=== PATIENT | female | born 1965 | race Caucasian/White ===

== ENCOUNTER 2017-06-11 20:52 | Outpatient (CLI) | payer BC ==
[~2017-06-11 20:52] MED LIST: ASPI-266 PO; CTLP20T PO; HYDR1CAP2 PO; MODA200T PO; MODA200T39 PO; NAPR-243 PO; SIMV20TA3 PO; SIMV40TA4 PO; SMV10T PO
== END 2017-06-12 06:05 | disposition home or self-care (01) ==
LOC: SLEEP 20:52
PROVIDERS: ATTEND Otolaryngology Otolaryngology/Facial Plastic Surgery
DX: G47.33 Obstructive sleep apnea (adult) (pediatric) (principal)
CPT/HCPCS: 95810

== ENCOUNTER → 2017-09-16 | Outpatient (CLI) | payer BC ==
--- NOTE | 2017-09-16 17:26 | Diagnostic Imaging Report ---
PROCEDURE: MRI lumbar spine. TECHNIQUE: Multiplanar, multisequence MRI of the lumbar spine was performed without contrast. INDICATION: Right thigh numbness and knee pain. COMPARISON: Comparison is made with the prior study from June 11, 2016. FINDINGS: Alignment of the lumbar spine is normal. The vertebral body heights are well maintained. There is no focal marrow signal abnormality to suggest an acute osseous injury or underlying osseous lesion. There is a small degree of edema associated with facet arthropathy at L4-L5. The lower thoracic canal demonstrates no evidence of canal stenosis. The distal thoracic cord demonstrates no signal abnormality. The conus terminates at a normal level. L1-L2 unremarkable. At L2-L3, there is disc degeneration and a very slight disc bulging. There is no significant stenosis. At L3-L4, there is low signal intensity within the disc suggesting some disc desiccation and degeneration. There is no significant disc bulging. There is mild facet hypertrophy. There is no significant stenosis. At L4-L5 disc degeneration and disc bulging and a small central disc protrusion are present. There is more advanced facet arthropathy and ligamentous thickening at this level with mild narrowing of the central canal and [id number]-eh-ymoepycb narrowing of the lateral recesses. There is mild narrowing of the right neural foramen. At L5-S1, there is no significant canal or lateral recess stenosis. There is no significant foraminal stenosis. Paraspinal soft tissues unremarkable. Aorta is normal in caliber. There is a right renal cyst. The kidneys are nonobstructed. IMPRESSION: 1. Normal height and alignment of lumbar spine without evidence of an acute osseous abnormality. 2. Mild degenerative features as described most significant at the L4-L5 level where disc bulging and central disc protrusion as well as advanced facet arthropathy contribute to fzyg-da-gydccfny narrowing of both the lateral recesses. Dictated by: Dictated on workstation # [id number]
== END ==
LOC: RAD 15:49
PROVIDERS: ATTEND Nurse Practitioner Family
DX: M51.26 Other intervertebral disc displacement, lumbar region (principal); M46.86 Other specified inflammatory spondylopathies, lumbar region; M48.061 Spinal stenosis, lumbar region without neurogenic claudication; R20.0 Anesthesia of skin
CPT/HCPCS: 72148

== ENCOUNTER → 2017-09-30 | Outpatient (CLI) | payer BC ==
--- NOTE | 2017-09-30 16:57 | Diagnostic Imaging Report ---
PROCEDURE: MR imaging cervical spine without contrast. TECHNIQUE: Multiplanar, multisequence MR imaging of the cervical spine was performed without contrast. INDICATION: Bilateral knee and leg pain. There are no previous MRI cervical spine examinations available for comparison. FINDINGS: The MRI lumbar spine exam performed on 09/16/17 noted mild degenerative disc disease at L4-L5 resulting in mild to moderate narrowing of the lateral recesses bilaterally. There was no abnormality of the cord or the vertebral bodies on the prior exam. On this study, however, the T2 parasagittal images do show that there is an area of increased signal within the cord extending from the inferior endplate of C7 to the inferior endplate of T1. This area measures 5 x 4 x 16 mm in maximum AP, transverse and longitudinal dimensions. This area of altered signal is of uncertain etiology. This could be secondary to demyelinating disease. Myelomalacia from prior trauma could also present in this manner. The possibility that this is neoplastic in nature would be less likely as the cord does not seem to be expanded but that should still be considered. I would recommend that a followup MRI cervical spine exam with intravenous contrast be performed for further study. In addition, it may prove worthwhile to obtain an MRI of the brain with and without contrast, particularly if there is clinical concern regarding demyelinating disease. There is also degenerative disc and bony disease involving the cervical spine. Specifically, there is narrowing of the disc space at the C5-C6 level and there is a broad-based disc bulge centrally at this level. The disc compresses the ventral aspect of the thecal sac and narrows the AP diameter to 7 mm. There is also narrowing of the neuroforamen bilaterally at this level. In addition, there is also degenerative disc, ligamentous and bony disease at the C6-C7 level. The AP diameter of the thecal sac is narrowed to 7.5 mm. There is mild narrowing of the neuroforamen bilaterally at this level. There is also a disc bulge centrally at the C3-C4 level. The disc narrows the AP diameter to 8.9 mm. There is mild narrowing of the neuroforamen bilaterally at this level as well. The remainder of the cervical spine is unremarkable for spinal stenosis or nerve root encroachment. There is no abnormal signal arising from the vertebral bodies to indicate an acute abnormality. There is no sign of a paraspinal mass either. IMPRESSION: 1. There is a sizable area of altered signal within the cord at the C7-T1 level. This finding is of uncertain etiology. Considerations and recommendations as above. 2. There is spinal stenosis at C5-C6, C6-C7 and C3-C4 with the C5-C6 level being the most severely affected. There is also neuroforaminal narrowing at C5-C6. Dictated by: Dictated on workstation # [id number]
--- NOTE | 2017-09-30 18:14 | Diagnostic Imaging Report ---
EXAMINATION: MRI of the thoracic spine without contrast. INDICATION: Right side numbness and tingling. No known injury. COMPARISON: No comparison of the thoracic spine is available. FINDINGS: Thoracic spine alignment is normal. The vertebral body heights appear well maintained. There is no focal marrow signal abnormality demonstrated to suggest an acute osseous injury or underlying osseous lesion. There is abnormal high T2 signal intensity demonstrated within the spinal cord at the T1 level. This measures 1.8 cm in craniocaudal length. Transverse dimension is 5 mm. There is no cord expansion or cord edema. There is no other abnormal thoracic cord signal demonstrated. There are some mild degenerative endplate changes within the thoracic spine and lower facet hypertrophy but there is no evidence of focal disc herniation or high-grade thoracic canal or neural foraminal stenosis. Paraspinal soft tissues are unremarkable. There is a right renal cyst. IMPRESSION: 1. Abnormal high T2 signal intensity within the spinal cord at the level of T1. There is no cord expansion or cord edema. Primary considerations would be that of a demyelinating process or a transverse myelitis. Neoplastic process is not fully excluded at this time. Given reported six months if symptomatology with normal cord volume this is unlikely to be reflective of a region of cord infarct. Recommendation is for a dedicated assessment of the contrast-enhanced MRI with and without contrast. This would likely be best performed with a cervical spine MRI to include the cervical thoracic junction. 2. Thoracic spine alignment is normal without acute osseous abnormality. 3. No evidence of thoracic canal or neural foraminal stenosis. Dictated by: Dictated on workstation # [id number]
== END ==
LOC: RAD 15:14
PROVIDERS: ATTEND Orthopaedic Surgery
DX: M48.02 Spinal stenosis, cervical region (principal)
CPT/HCPCS: 72141; 72146

== ENCOUNTER → 2017-10-11 | Outpatient (CLI) | payer BC ==
[~2017-10-11] MED LIST changes: +GADOBUTROL 15 MMOL/15 ML (GADAVIST) VIAL IV ONE
[2017-10-11 08:31] LABS: BUN/CREATININE RATIO 13; CREATININE SERUM 0.69 MG/DL (0.60-1.30); GFR ESTIMATED > 60
== END ==
LOC: RAD 08:03
PROVIDERS: ATTEND Orthopaedic Surgery
DX: Z01.810 Encounter for preprocedural cardiovascular examination (principal); S14.159A Other incomplete lesion at unspecified level of cervical spinal cord, initial encounter; S24.119A Complete lesion at unspecified level of thoracic spinal cord, initial encounter
CPT/HCPCS: 36415; 82565; 84520

== ENCOUNTER → 2017-10-13 | Outpatient (CLI) | payer BC | LOC: RAD 14:54 | PROVIDERS: ATTEND Orthopaedic Surgery | DX: M48.02 Spinal stenosis, cervical region (principal); M47.814 Spondylosis without myelopathy or radiculopathy, thoracic region ==

== ENCOUNTER 2017-12-04 16:20 | Emergency (ER) | payer BC ==
[~2017-12-04] VITALS: Ht 165.1 cm; Wt 97.1 kg
[~2017-12-04 16:20] MED LIST changes: -GADOBUTROL 15 MMOL/15 ML (GADAVIST) VIAL IV ONE
--- OUTSIDE RECORDS SUMMARY | 2017-12-04 16:37 | XMS REPORT ---
Author Author STACEY FREEMAN [facility] [employer] Address Unknown Phone Unavailable Care Team Providers Care Holter Technician Name Role Phone STACEY FREEMAN Unavailable Allergies No Known Allergies Problems Problem Type Condition Code Onset Dates Condition Status Assessment Encounter for immunization Z23 Active Problem Dysfunction of Eustachian tube 381.81 Active Medications No Known Medications Procedures Procedure Coding System Code Date SINGLE IMMUNIZATION ADMIN CPT-4 50362 Jul 18, 2015 TDAP (BOOSTRIX) CPT-4 95670 Jul 18, 2015 Results No Known Results Immunizations Vaccine Administration Date TDAP (BOOSTRIX) Jul 18, 2015 Summary Purpose [employer] Submission
--- OUTSIDE RECORDS SUMMARY | 2017-12-04 16:37 | XMS REPORT | Continuity of Care Document ---
Author Author [facility] Address Unknown Phone Unavailable Allergies Active Description Code Type Severity Reaction Onset Reported/Identified Relationship to Patient Clinical Status Yes SEASONAL, ENVIRONMENTAL SEASONAL, ENVIRONMENTAL Mild N/A 07/31/2010 Medications There is no data. Problems Date Dx Coded Attending Type Code Diagnosis Diagnosed By 07/11/2013 ROCHELLE WHITTAKER Ot 327.23 OBSTRUCTIVE SLEEP APNEA (ADULT) (PEDIATR 10/29/2013 FREDIS GAUTHIER, DENNIS Cervantes Ot 786.50 CHEST PAIN NOS 06/28/2014 STACEY FREEMAN APRN 381.81 EUSTACHIAN TUBE DYSFUNCTION 11/09/2014 NESSA MULLER MD Ot 272.4 11/09/2014 NESSA MULLER MD Ot 278.00 11/09/2014 NESSA MULLER MD Ot 401.9 11/09/2014 NESSA MULLER MD Ot 786.50 11/09/2014 NESSA MULLER MD Ot V17.3 07/17/2015 NESSA MULLER MD Ot 070.70 07/17/2015 NESSA MULLER MD Ot 397.0 07/17/2015 NESSA MULLER MD Ot 401.9 07/17/2015 NESSA MULLER MD Ot 424.0 07/17/2015 NESSA MULLER MD Ot 786.50 07/17/2015 NESSA MULLER MD Ot V17.3 02/02/2016 NESSA MULLER MD Ot 272.4 HYPERLIPIDEMIA NEC/NOS 02/02/2016 NESSA MULLER MD Ot 278.00 OBESITY, NOS 02/02/2016 NESSA MULLER MD Ot 401.9 HYPERTENSION NOS 02/02/2016 NESSA MULLER MD Ot 786.50 CHEST PAIN NOS 02/02/2016 NESSA MULLER MD Ot V17.3 FAM HX-ISCHEM HEART DIS 02/02/2016 NESSA MULLER MD Ot 070.70 UNSPECIFIED VIRAL HEPATITIS C WITHOUT HE 02/02/2016 NESSA MULLER MD Ot 397.0 TRICUSPID VALVE DISEASE 02/02/2016 NESSA MULLER MD Ot 401.9 HYPERTENSION NOS 02/02/2016 NESSA MULLER MD Ot 424.0 MITRAL VALVE DISORDER 02/02/2016 NESSA MULLER MD Ot 786.50 CHEST PAIN NOS 02/02/2016 NESSA MULLER MD Ot V17.3 FAM HX-ISCHEM HEART DIS 02/03/2016 NESSA MULLER MD Ot B19.20 UNSPECIFIED VIRAL HEPATITIS C WITHOUT HE 02/03/2016 NESSA MULLER MD Ot E78.5 HYPERLIPIDEMIA, UNSPECIFIED 02/03/2016 NESSA MULLER MD Ot F17.210 NICOTINE DEPENDENCE, CIGARETTES, UNCOMPL 02/03/2016 NESSA MULLER MD Ot F32.9 MAJOR DEPRESSIVE DISORDER, SINGLE EPISOD 02/03/2016 NESSA MULLER MD Ot F41.9 ANXIETY DISORDER, UNSPECIFIED 02/03/2016 NESSA MULLER MD Ot I10 ESSENTIAL (PRIMARY) HYPERTENSION 02/03/2016 NESSA MULLER MD Ot M79.7 FIBROMYALGIA 02/03/2016 NESSA MULLER MD Ot R07.89 OTHER CHEST PAIN 02/03/2016 NESSA MULLER MD Ot Z91.14 PATIENT'S OTHER NONCOMPLIANCE WITH MEDIC 06/12/2016 MARTINEZ SAUCEDO MD Ot M51.36 OTHER INTERVERTEBRAL DISC DEGENERATION, 06/17/2016 MARTINEZ SAUCEDO MD Ot M51.36 OTHER INTERVERTEBRAL DISC DEGENERATION, 06/24/2016 MARTINEZ SAUCEDO MD Ot M51.36 OTHER INTERVERTEBRAL DISC DEGENERATION, 06/10/2017 MARTINEZ SAUCEDO MD Ot M51.36 OTHER INTERVERTEBRAL DISC DEGENERATION, 06/11/2017 MARTINEZ SAUCEDO MD Ot M51.36 OTHER INTERVERTEBRAL DISC DEGENERATION, 06/12/2017 MARTINEZ JERNIGAN MD Ot G47.33 OBSTRUCTIVE SLEEP APNEA (ADULT) (PEDIATR 09/15/2017 MARTINEZ SAUCEDO MD Ot M51.36 OTHER INTERVERTEBRAL DISC DEGENERATION, 09/30/[address] G[address] Ot M46.86 OTHER SPECIFIED INFLAMMATORY SPONDYLOPAT 09/30/[address] GIL[address] Ot M48.061 SPINAL STENOSIS, LUMBAR REGION WITHOUT N 09/30/2017 M[place]ULK[place]LOCHOA [place] [facility] Ot M51.26 OTHER INTERVERTEBRAL DISC DISPLACEMENT, 09/30/[address] [facility] Ot R20.0 ANESTHESIA OF SKIN 10/01/2017 PAULA ENGLISH MD, Ot M48.02 SPINAL STENOSIS, CERVICAL REGION 10/12/2017 RENU WATERS DO Ot S14.159A OTH INCMPL LESION AT UNSP LEVEL OF CERV 10/12/2017 RENU WATERS DO Ot S24.119A COMPLETE LESION AT UNSP LEVEL OF THORACI 10/12/2017 RENU WATERS DO Ot Z01.810 ENCOUNTER FOR PREPROCEDURAL CARDIOVASCUL 10/12/2017 RENU WATERS DO, Ot S14.159A OTH INCMPL LESION AT UNSP LEVEL OF CERV 10/12/2017 RENU WATERS DO Ot S24.119A COMPLETE LESION AT UNSP LEVEL OF THORACI 10/12/2017 RENU WATERS DO Ot Z01.810 ENCOUNTER FOR PREPROCEDURAL CARDIOVASCUL 10/13/2017 PAULA ENGLISH MD, Ot M48.02 SPINAL STENOSIS, CERVICAL REGION 10/14/2017 RENU WATERS DO Ot M47.814 SPONDYLOSIS W/O MYELOPATHY OR RADICULOPA 10/14/2017 RENU WATRES DO Ot M48.02 SPINAL STENOSIS, CERVICAL REGION 10/21/2017 RENU WATERS DO Ot S14.159A OTH INCMPL LESION AT UNSP LEVEL OF CERV 10/21/2017 RENU WATERS DO Ot S24.119A COMPLETE LESION AT UNSP LEVEL OF THORACI 10/21/2017 RENU WATERS DO Ot Z01.810 ENCOUNTER FOR PREPROCEDURAL CARDIOVASCUL Procedures There is no data. Results Test Result Range [id number] - 10/11/17 08:12 Serum or plasma urea nitrogen measurement (mass/volume) 9 mg/dL 7-18 Serum or plasma creatinine measurement (mass/volume) 0.69 mg/dL 0.60-1.30 Serum or plasma urea nitrogen/creatinine mass ratio 13 NRG Serum or plasma creatinine measurement with calculation of estimated glomerular filtration rate > NRG Encounters ACCT No. Visit Date/Time Discharge Status Pt. Type Provider Facility Loc./Unit Complaint [id number] 06/28/2014 09:22:00 06/28/2014 23:59:59 CLS Outpatient STACEY FREEMAN APRN [id number] 10/13/2017 14:54:00 10/13/2017 23:59:59 CLS Outpatient RENU WATERS DO [facility] RAD S14.15,S24.119A [id number] 10/11/2017 08:03:00 10/11/2017 23:59:59 CLS Outpatient RENU WATERS DO [facility] RAD S14.15,S24.119A [id number] 10/05/2017 15:06:00 10/05/2017 23:59:59 CLS Preadmit RENU WATERS DO [facility] RAD S14.15,S24.119A [id number] 09/30/2017 15:14:00 09/30/2017 23:59:59 CLS Outpatient PAULA ENGLISH MD [facility] RAD MYELOPATHY [id number] 09/16/2017 15:49:00 09/16/2017 23:59:[address] [facility] RAD PARISH LEG PAIN [id number] 06/11/2017 20:52:00 06/12/2017 06:05:00 DIS Outpatient MARTINEZ JERNIGAN MD [facility] SLEEP ONELIA G47.33 [id number] 06/11/2016 16:17:00 06/11/2016 23:59:59 CLS Outpatient MARTINEZ SAUCEDO MD [facility] RAD LUMBAR SPINAL STENOSIS [id number] 02/02/2016 21:27:00 02/03/2016 09:50:00 DIS Inpatient NESSA MULLER MD [facility] [id number] 11/13/2013 13:52:00 11/13/2013 23:59:59 CLS Outpatient NESSA MULLER MD [facility] CARD [id number] 11/01/2013 06:34:00 11/01/2013 23:59:59 CLS Outpatient NESSA MULLER MD [facility] RAD [id number] 10/29/2013 15:19:00 10/29/2013 17:16:00 DIS Emergency FREDIS GAUTHIER, DENNIS Cervantes [facility] ER [id number] 07/10/2013 20:53:00 07/11/2013 16:55:00 DIS Outpatient ROCHELLE WHITTAKER [facility] SLEEP
--- OUTSIDE RECORDS SUMMARY | 2017-12-04 16:37 | XMS REPORT | Clinical Summary ---
Author Author [facility] Organization [facility] Address Unknown Phone Unavailable Care Team Providers Care Commercial Singer Name Role Phone Joseline Donaldson GEODETIC ADVISOR Unavailable Source Comments Some departments are not documenting in the electronic medical record. If you do not see the information that you expected, contact Release of Information in the Health Information Management department at [phone] for further assistance in locating additional records.[facility] Allergies Not on File Current Medications Not on file Active Problems Not on file Social History Tobacco Use Types Packs/Day Years Used Date Never Assessed Sex Assigned at Date Recorded Not on file Last Filed Vital Signs Not on file Plan of Treatment Health Maintenance Due Date Last Done Comments PHYSICAL (COMPREHENSIVE) 1973 EXAM PERTUSSIS VACCINE 1977 HIV SCREENING 1981 TETANUS VACCINE 12/11/1983 CERVICAL CANCER SCREENING 1996 BREAST CANCER SCREENING 2006 COLORECTAL CANCER 2016 SCREENING INFLUENZA VACCINE 06/20/2018 Results Not on filefrom Last 3 Months
--- OUTSIDE RECORDS SUMMARY | 2017-12-04 16:37 | XMS REPORT ---
Author Author STACEY FREEMAN Organization [facility] Address [address] [place] [address] Care Team Providers Care Telephone Betting Clerk Name Role Phone DORISMISTYSTACEY Unavailable PROBLEMS Type Condition ICD9-CM Code [id number] Code Onset Dates Condition Status SNOMED Code Problem Dysfunction of Eustachian tube 381.81 Active 45247882 ALLERGIES No Known Allergies SOCIAL HISTORY Never Assessed PLAN OF CARE Activity Details Follow Up prn Reason: VITAL SIGNS Height 65 in 2017-01-21 Weight 210 lbs 2017-01-21 Temperature 98 degrees Fahrenheit 2017-01-21 Heart Rate 84 bpm 2017-01-21 Respiratory Rate 20 2017-01-21 Oximetry 97 % 2017-01-21 BMI 34.94 kg/m2 2017-01-21 Blood pressure systolic 130 mmHg 2017-01-21 Blood pressure diastolic 90 mmHg 2017-01-21 MEDICATIONS Medication Instructions Dosage Frequency Start Date End Date Duration Status Promethazine-Codeine 6.25-10 MG/5ML Orally every 6 hrs 5-10 ml as needed for cough 6h 7 days Active Celexa Active Doxycycline Hyclate 100 mg Orally every 12 hrs 1 capsule 12h January, January, 10 days Active Provigil Active Mobic Active Norvasc Active Symbicort 160-4.5 MCG/ACT Inhalation Twice a day 2 puffs 12h January, Apr, 30 days Active RESULTS No Results PROCEDURES Procedure Date Ordered Result Body Site MEASURE BLOOD OXYGEN LEVEL January 21, 2017 IMMUNIZATIONS No Known Immunizations MEDICAL (GENERAL) HISTORY Type Description Date Medical History Narcolepsy
--- OUTSIDE RECORDS SUMMARY | 2017-12-04 16:37 | XMS REPORT ---
Author Author STACEY FREEMAN Organization [employer] Address Unknown Phone Unavailable Care Team Providers Care Sandstone Splitter Name Role Phone STACEY FREEMAN Unavailable Allergies No Known Allergies Problems Problem Type Condition Code Onset Dates Condition Status Assessment Encounter for immunization Z23 Active Problem Dysfunction of Eustachian tube 381.81 Active Medications No Known Medications Procedures Procedure Coding System Code Date SINGLE IMMUNIZATION ADMIN CPT-4 21649 Jul 08, 2015 FLUARIX QUAD (3 & UP)-GSK-2014 CPT-4 43535 Jul 08, 2015 Results No Known Results Immunizations Vaccine Administration Date FLUARIX QUAD (3 & UP)-GSK-2014Jul 08, 2015 Summary Purpose [employer] Submission
[2017-12-04] MEDS ORDERED: DIAZ10TA3 PO (16:50)
[2017-12-04] MEDS ORDERED: AMLO5TAB2 PO (16:50)
[2017-12-04] MEDS ORDERED: OXYC-471 PO (16:50)
[2017-12-04] MEDS ORDERED: RT-ALBUINH IH (16:50)
[2017-12-04] MEDS ORDERED: BACL10TA PO (16:50)
[2017-12-04 18:46] LABS: BASOPHILS % (AUTO) 0 % (0-10); EOSINOPHILS # (AUTO) 0.2 10^3/uL (0.0-0.3); EOSINOPHILS % (AUTO) 2 % (0-10); HEMATOCRIT 37 % (35-52); HEMOGLOBIN 12.9 G/DL (11.5-16.0); LYMPHOCYTES # (AUTO) 1.8 X 10^3 (1.0-4.0); LYMPHOCYTES % (AUTO) 16 % (12-44); MEAN CORPUSCULAR HEMOGLOBIN 31 PG (25-34); MEAN CORPUSCULAR HGB CONC 35 G/DL (32-36); MEAN CORPUSCULAR VOLUME 89 FL (80-99); MEAN PLATELET VOLUME 8.8 FL (7.4-10.4); MONOCYTES # (AUTO) 1.4 X 10^3 (0.0-1.0); MONOCYTES % (AUTO) 13 % (0-12); NEUTROPHILS # (AUTO) 7.4 X 10^3 (1.8-7.8); NEUTROPHILS % (AUTO) 68 % (42-75); PLATELET COUNT 253 10^3/uL (130-400); RED BLOOD COUNT 4.15 10^6/uL (4.35-5.85); RED CELL DISTRIBUTION WIDTH 13.3 % (10.0-14.5); WHITE BLOOD COUNT 10.8 10^3/uL (4.3-11.0)
[2017-12-04 18:55] LABS: PROTHROMBIN TIME PATIENT 13.2 SEC (12.2-14.7)
[2017-12-04 19:05] LABS: ALANINE AMINOTRANSFERASE 32 U/L (0-55); ALBUMIN 3.5 GM/DL (3.2-4.5); ALKALINE PHOSPHATASE 60 U/L (40-136); BILIRUBIN,TOTAL 0.4 MG/DL (0.1-1.0); BUN/CREATININE RATIO 13; CALCIUM 8.7 MG/DL (8.5-10.1); CARBON DIOXIDE 23 MMOL/L (21-32); CHLORIDE 106 MMOL/L (98-107); CREATININE SERUM 0.63 MG/DL (0.60-1.30); GFR ESTIMATED > 60; GLUCOSE 101 MG/DL (70-105); MAGNESIUM 1.9 MG/DL (1.8-2.4); POTASSIUM 4.4 MMOL/L (3.6-5.0); SODIUM 137 MMOL/L (135-145)
[2017-12-04 19:25] LABS: TSH (THYROID ANALYZER) 0.38 UIU/ML (0.35-4.94)
--- NOTE | 2017-12-04 19:28 | ED Lower Extremity ---
General Chief Complaint: Lower Extremity Stated Complaint: LEGS SWOLLEN Nursing Triage Note: pt reports swelling in legs this morning. slightly altered mental status, "loopy." possible thrush. recent surgery with dr bhatt 11/26/17 Nursing Sepsis Screen: No Definite Risk Source: patient (LIMITED HISTORIAN), family (DAUGHTER) History of Present Illness Date Seen by Provider: Dec 04, 2017 Time Seen by Provider: 18:25 Initial Comments PT C/O BILATERAL LEG SWELLING SINCE WAKING THIS AM, AND LEGS ACHE PT HAD CERVICAL SPINE SURGERY [address] BHATT [address] AND IS IN HARD CERVICAL COLLAR NO FEVER NO CHEST PAIN NO SHORTNESS OF BREATH PT FELL ASLEEP IN A CHAIR ON HER DECK OUTSIDE LAST PM, LATER WENT INSIDE AND WENT BACK TO SLEEP. DAUGHTER WOKE HER UP AT NOON TODAY, AND NOTED LEGS TO BE SWOLLEN NO PARESTHESIAS OR MOTOR DEFICITS PT HAS CHRONIC COUGH --IS 1 PPD SMOKER--SLIGHTLY INCREASED THIS WEEK. PT HAS ALBUTEROL INHALER--HAS USED A COUPLE OF TIMES IN THE LAST WEEK. PT HAS BEEN TAKING ALOT OF PAIN MEDICATIONS SINCE SURGERY AND HAS BEEN A LITTLE "LOOPY" PCP: DR. KAYE Allergies and Home Medications Allergies Uncoded Allergies: SEASONAL, ENVIRONMENTAL (Allergy, Mild, 07/31/10) Home Medications Albuterol Sulfate 1 Puff Puff, 2 PUFF IH Q4H, (Reported) 1 PUFF = 90 MCG Amlodipine Besylate 5 Mg Tablet, 5 MG PO DAILY, (Reported) Baclofen 10 Mg Tablet, 10 MG PO Q8H PRN for MUSCLE SPASMS, (Reported) Citalopram Hydrobromide 20 Mg Tablet, 1 EACH PO DAILY, (Reported) Diazepam 10 Mg Tablet, 10 MG PO Q6H PRN for MUSCLE SPASMS, (Reported) Modafinil 200 Mg Tablet, 200 MG PO DAILY, (Reported) LAST FILLED #30 4-8-16 Oxycodone HCl/Acetaminophen 1 Each Tablet, 1 EACH PO Q4H PRN for PAIN-MILD, ( Reported) Constitutional: No chills, No diaphoresis, No dizziness, No fever, malaise EENTM: no symptoms reported Respiratory: see HPI, cough, No orthopnea, No phlegm, No short of breath, No wheezing Cardiovascular: see HPI, No chest pain, edema, No palpitations, No syncope, No vascular heart diseas Gastrointestinal: no symptoms reported Genitourinary: no symptoms reported Musculoskeletal: see HPI, neck pain, other (LEG SWELLING AND SLIGHT ACHING) Skin: no symptoms reported Psychiatric/Neurological: No Symptoms Reported, Denies Headache, Denies Numbness, Denies Paresthesia, Denies Seizure, Denies Tingling, Denies Tremors, Denies Weakness Past Dljvzeb-Tsjymg-Vkpzzm Hx Patient Social History Alcohol Use: Rarely Uses 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 Genitourinary History of Genitourinary Disor: Yes Genitourinary Disorders: Bladder Infection Gastrointestinal History of Gastrointestinal Di: Yes (Hx diverticulitis, Hep C) Gastrointestinal Disorders: Diverticulosis, Hepatitis Musculoskeletal History of Musculoskeletal Dis: Yes (CHRONIC NECK PAIN ) Musculoskeletal Disorders: Fibromyalgia, Chronic Back Pain Endocrine History of Endocrine Disorders: Yes ("PRE-DIABETIC" ) Cancer History of Cancer: No Psychosocial History of Psychiatric Problem: No Integumentary History of Skin or Integumenta: No Blood Transfusions History of Blood Disorders: No Adverse Reaction to a Blood Tr: No Family Medical History Significant Family History: No Pertinent Family Hx Family Medial History: Patient reports no known family medical history. Physical Exam Vital Signs Vital Signs - First Documented 12/04/17 16:36 Temp 98.3 Capillary Refill : Less Than 3 Seconds General Appearance: WD/WN, no apparent distress, other (WEARING C-COLLAR) HEENT: PERRL/EOMI Cardiovascular: regular rate, rhythm, no murmur Respiratory: normal breath sounds, no respiratory distress, no accessory muscle use Gastrointestinal: normal bowel sounds, non tender, soft Hips: bilateral hip normal inspection Legs: bilateral leg non-tender, bilateral leg normal range of motion, bilateral leg other ( 1+ EDEMA BILATERALLY) Knees: bilateral knee normal inspection Ankles: bilateral ankle non-tender, bilateral ankle normal range of motion, bilateral ankle other ( ABOVE) Feet: bilateral foot non-tender, bilateral foot normal range of motion, bilateral foot other ( ABOVE) Neurologic/Tendon: normal sensation, normal motor functions, normal tendon functions Neurologic/Psychiatric: spool sorter II-XII nml as tested, no motor/sensory deficits, alert, normal mood/affect, oriented x 3 Skin: normal color, warm/dry, No rash Progress/Results/Core Measures Results/Orders Lab Results Laboratory Tests Test 12/04/17 17:17 12/04/17 18:35 Range/Units Urine Color YELLOW Urine Clarity CLEAR Urine pH 8 5-9 Urine Specific [place] 1.015 L 1.016-1.022 Urine Protein NEGATIVE NEGATIVE Urine Glucose (UA) NEGATIVE NEGATIVE Urine Ketones NEGATIVE NEGATIVE Urine Nitrite NEGATIVE NEGATIVE Urine Bilirubin NEGATIVE NEGATIVE Urine Urobilinogen NORMAL NORMAL MG/DL Urine Leukocyte Esterase NEGATIVE NEGATIVE Urine RBC (Auto) NEGATIVE NEGATIVE Urine RBC RARE /HPF Urine WBC RARE /HPF Urine Squamous Epithelial Cells 25-50 H /HPF Urine Renal Epithelial Cells NONE /HPF Urine Crystals NONE /LPF Urine Bacteria NEGATIVE /HPF Urine Casts NONE /LPF Urine Mucus SMALL H /LPF Urine Culture Indicated NO Urine Opiates Screen NEGATIVE NEGATIVE Urine Oxycodone Screen POSITIVE H NEGATIVE Urine Methadone Screen NEGATIVE NEGATIVE Urine Propoxyphene Screen NEGATIVE NEGATIVE Urine Barbiturates Screen NEGATIVE NEGATIVE Ur Tricyclic Antidepressants Screen NEGATIVE NEGATIVE Urine Phencyclidine Screen NEGATIVE NEGATIVE Urine Amphetamines Screen NEGATIVE NEGATIVE Urine Methamphetamines Screen NEGATIVE NEGATIVE Urine Benzodiazepines Screen POSITIVE H NEGATIVE Urine Cocaine Screen NEGATIVE NEGATIVE Urine Cannabinoids Screen NEGATIVE NEGATIVE White Blood Count 10.8 4.3-11.0 10^3/uL Red Blood Count 4.15 L 4.35-5.85 10^6/uL Hemoglobin 12.9 11.5-16.0 G/DL Hematocrit 37 35-52 % Mean Corpuscular Volume 89 80-99 FL Mean Corpuscular Hemoglobin 31 25-34 PG Mean Corpuscular Hemoglobin Concent 35 32-36 G/DL Red Cell Distribution Width 13.3 10.0-14.5 % Platelet Count 253 130-400 10^3/uL Mean Platelet Volume 8.8 7.4-10.4 FL Neutrophils (%) (Auto) 68 42-75 % Lymphocytes (%) (Auto) 16 12-44 % Monocytes (%) (Auto) 13 H 0-12 % Eosinophils (%) (Auto) 2 0-10 % Basophils (%) (Auto) 0 0-10 % Neutrophils # (Auto) 7.4 1.8-7.8 X 10^3 Lymphocytes # (Auto) 1.8 1.0-4.0 X 10^3 Monocytes # (Auto) 1.4 H 0.0-1.0 X 10^3 Eosinophils # (Auto) 0.2 0.0-0.3 10^3/uL Basophils # (Auto) 0.0 0.0-0.1 10^3/uL Prothrombin Time 13.2 12.2-14.7 SEC INR Comment 1.0 0.8-1.4 Activated Partial Thromboplast Time 29 24-35 SEC Sodium Level 137 135-145 MMOL/L Potassium Level 4.4 3.6-5.0 MMOL/L Chloride Level 106 98-107 MMOL/L Carbon Dioxide Level 23 21-32 MMOL/L Anion Gap 8 5-14 MMOL/L Blood Urea Nitrogen 8 7-18 MG/DL Creatinine 0.63 0.60-1.30 MG/DL Estimat Glomerular Filtration Rate > 60 BUN/Creatinine Ratio 13 Glucose Level 101 70-105 MG/DL Calcium Level 8.7 8.5-10.1 MG/DL Magnesium Level 1.9 1.8-2.4 MG/DL Total Bilirubin 0.4 0.1-1.0 MG/DL Aspartate Amino Transf (AST/SGOT) 31 5-34 U/L Alanine Aminotransferase (ALT/SGPT) 32 0-55 U/L Alkaline Phosphatase 60 40-136 U/L Troponin I < 0.30 <0.30 NG/ML B-Type Natriuretic Peptide < 10.0 <100.0 PG/ML Total Protein 6.0 L 6.4-8.2 GM/DL Albumin 3.5 3.2-4.5 GM/DL TSH [place] Testing 0.38 0.35-4.94 UIU/ML My Orders Orders - SIOMARA ALLEN DO Saline Lock/Iv-Start (12/04/17 18:30) Ekg Tracing (12/04/17 18:30) Monitor-Rhythm Ecg Trace Only (12/04/17 18:30) BNP (12/04/17 18:30) Cbc With Automated Diff (12/04/17 18:30) Comprehensive Metabolic Panel (12/04/17 18:30) Magnesium (12/04/17 18:30) Protime With Inr (12/04/17 18:30) Partial Thromboplastin Time (12/04/17 18:30) Thyroid Analyzer (12/04/17 18:30) Troponin I (12/04/17 18:30) Chest Pa/Lat (2 View) (12/04/17 18:30) Drug Screen Stat (Urine) (12/04/17 19:29) Ua Culture If Indicated (12/04/17 19:29) Us Venous Lower Ext Rickey (12/04/17 19:33) Furosemide Injection (Lasix Injection) (12/04/17 21:15) Medications Given in ED Current Medications Medications Dose Ordered Sig/Roxanne Route Start Time Stop Time Status Last Admin Dose Admin Furosemide 40 mg ONCE ONCE IVP 12/04/17 21:15 12/04/17 21:16 DC 12/04/17 21:07 40 MG Vital Signs/I&O Vital Sign - Last 12Hours 12/04/17 16:36 Temp 98.3 B/P (MAP) Departure Impression Impression: Primary Impression: DEPENDENT LEG EDEMA Disposition: 01 HOME, SELF-CARE Condition: Stable Departure-Patient Inst. Referrals: JACKIE KAYE DO (PCP/Family) Primary Care Physician Patient Instructions: Dependent Edema (DC) Add. Discharge Instructions: ELEVATE LEGS MUCH POSSIBLE LOW SODIUM DIET--LESS THAT 2 GRAMS OF SODIUM A DAY CONTINUE CURRENT MEDICATIONS PRESCRIBED FOLLOW UP WITH YOUR DR IN 2-3 DAYS IF NO BETTER RETURN TO ER IF WORSE All discharge instructions reviewed with patient and/or family. Voiced understanding. SIOMARA ALLEN DO Dec 04, 2017 19:28
[2017-12-04 19:35] LABS: BILIRUBIN,URINE NEGATIVE (NEGATIVE); CLARITY,URINE CLEAR; COLOR,URINE YELLOW; GLUCOSE, URINE (UA) NEGATIVE (NEGATIVE); KETONES,URINE NEGATIVE (NEGATIVE); LEUKOCYTE ESTERASE ,URINE NEGATIVE (NEGATIVE); NITRITE,URINE NEGATIVE (NEGATIVE); PH,URINE 8 (5-9); PROTEIN,URINE NEGATIVE (NEGATIVE); UROBILINOGEN,URINE NORMAL (NORMAL)
[2017-12-04 19:48] LABS: BACTERIA,URINE NEGATIVE /HPF; RBC,URINE RARE /HPF; SQUAMOUS EPITHELIAL CELL,UR 25-50 /HPF; WBC,URINE RARE /HPF
[2017-12-04 19:52] LABS: AMPHETAMINE SCREEN, URINE NEGATIVE (NEGATIVE); BARBITURATE SCREEN URINE NEGATIVE (NEGATIVE); BENZODIAZEPINES SCREEN URINE POSITIVE (NEGATIVE); CANNABINOID SCREEN, URINE NEGATIVE (NEGATIVE); COCAINE SCREEN URINE NEGATIVE (NEGATIVE); METHADONE STAT NEGATIVE (NEGATIVE); METHAMPHETAMINE SCREEN URINE S NEGATIVE (NEGATIVE); OPIATE SCREEN URINE NEGATIVE (NEGATIVE); OXYCODONE STAT POSITIVE (NEGATIVE); PROPOXYPHENE STAT NEGATIVE (NEGATIVE); TRICYCLIC ANTIDEPRESSANTS SCRE NEGATIVE (NEGATIVE)
--- NOTE | 2017-12-04 19:57 | Diagnostic Imaging Report ---
PATIENT HISTORY: Cough. TECHNIQUE: Two views of the chest COMPARISON: 02/02/2016 FINDINGS: Lung volumes are normal. No focal consolidation is seen. There is no pleural effusion or pneumothorax. The cardiomediastinal silhouette appears normal in size and contour. A cervical collar and cervical spine fusion hardware are noted. IMPRESSION: No acute pulmonary abnormality seen. Dictated by: Dictated on workstation # [id number]
[2017-12-04] MEDS ORDERED: FUROSEMIDE 40 MG/4 ML INJ (LASIX) IVP ONE (21:15)
--- NOTE | 2017-12-04 21:19 | Diagnostic Imaging Report ---
PATIENT HISTORY: Bilateral lower extremity swelling, recent surgery. TECHNIQUE: Grayscale and Doppler ultrasound of the bilateral lower extremity venous systems. COMPARISON: None. FINDINGS: The common femoral vein, femoral vein, profunda femoris, and popliteal veins are normal in appearance. The vessels show normal compressibility, color flow and doppler augmentation. The visualized deep calf veins demonstrate no distinct intraluminal thrombus. IMPRESSION: No evidence of deep venous thrombosis. Negative venous Doppler of the bilateral lower extremity veins. Dictated by: Dictated on workstation # [id number]
[2017-12-04 21:38] VITALS: BP 158/98
== END 2017-12-04 21:42 | disposition home or self-care (01) ==
LOC: EDUNIT# 16:20 → ER 16:22
DX: R60.0 Localized edema (principal); I10 Essential (primary) hypertension; E78.00 Pure hypercholesterolemia, unspecified; B19.20 Unspecified viral hepatitis C without hepatic coma; F17.210 Nicotine dependence, cigarettes, uncomplicated; Z98.1 Arthrodesis status; Z90.711 Acquired absence of uterus with remaining cervical stump; Z87.19 Personal history of other diseases of the digestive system; Z87.448 Personal history of other diseases of urinary system; Z98.51 Tubal ligation status
CPT/HCPCS: 36415; 71046; 80053; 80306; 81000; 83735; 83880; 84443; 84484; 85025; 85610; 85730; 93005; 93041; 93970; 96374

== ENCOUNTER 2019-02-07 12:45 | Outpatient (CLI) | payer BC ==
[~2019-02-07] VITALS: Ht 166.4 cm; Wt 101.6 kg
[~2019-02-07 12:45] MED LIST changes: +AMLO5TAB9 PO; +BACL10TA PO; +DIAZ10TA3 PO; +OXYC-471 PO; +RT-ALBUINH IH
[2019-02-07] MEDS ORDERED: ESTR0.5T PO (13:06)
[2019-02-07] MEDS ORDERED: METH-290 PO (13:06)
[2019-02-07] MEDS ORDERED: PARO30TA3 PO (13:06)
[2019-02-07] MEDS ORDERED: TRIA1CAP4 PO (13:06)
[2019-02-07] MEDS ORDERED: ATOR20TA66 PO (13:06)
[2019-02-07 13:08] VITALS: BP 135/82
[2019-02-07] MEDS ORDERED: TRAM50TA2 PO (13:27)
--- NOTE | 2019-02-07 14:01 | Diagnostic Imaging Report ---
CHEST PA/LAT (2 VIEW) Indication: Preop clearance Comparison: 12/04/2017 Findings: No focal pneumonic consolidation, pleural effusion or pneumothorax. Normal heart size and pulmonary vasculature. Impression: No acute cardiopulmonary process. Dictated by: Dictated on workstation # [id number]
[2019-02-07 14:09] LABS: BASOPHILS % (AUTO) 1 % (0-10); EOSINOPHILS # (AUTO) 0.2 10^3/uL (0.0-0.3); EOSINOPHILS % (AUTO) 2 % (0-10); HEMATOCRIT 44 % (35-52); HEMOGLOBIN 15.4 G/DL (11.5-16.0); LYMPHOCYTES # (AUTO) 2.7 X 10^3 (1.0-4.0); LYMPHOCYTES % (AUTO) 37 % (12-44); MEAN CORPUSCULAR HEMOGLOBIN 30 PG (25-34); MEAN CORPUSCULAR HGB CONC 35 G/DL (32-36); MEAN CORPUSCULAR VOLUME 85 FL (80-99); MEAN PLATELET VOLUME 9.3 FL (7.4-10.4); MONOCYTES % (AUTO) 13 % (0-12); NEUTROPHILS # (AUTO) 3.4 X 10^3 (1.8-7.8); NEUTROPHILS % (AUTO) 47 % (42-75); PLATELET COUNT 244 10^3/uL (130-400); WHITE BLOOD COUNT 7.2 10^3/uL (4.3-11.0)
[2019-02-07 14:28] LABS: BACTERIA,URINE TRACE /HPF; BILIRUBIN,URINE NEGATIVE (NEGATIVE); CLARITY,URINE CLEAR; COLOR,URINE YELLOW; GLUCOSE, URINE (UA) NEGATIVE (NEGATIVE); KETONES,URINE NEGATIVE (NEGATIVE); LEUKOCYTE ESTERASE ,URINE 1+ (NEGATIVE); NITRITE,URINE NEGATIVE (NEGATIVE); PH,URINE 7 (5-9); PROTEIN,URINE NEGATIVE (NEGATIVE); UROBILINOGEN,URINE NORMAL (NORMAL); WBC,URINE RARE /HPF
[2019-02-07 14:32] LABS: ALANINE AMINOTRANSFERASE 45 U/L (0-55); ALBUMIN 4.2 GM/DL (3.2-4.5); ALKALINE PHOSPHATASE 78 U/L (40-136); BILIRUBIN,TOTAL 0.4 MG/DL (0.1-1.0); BUN/CREATININE RATIO 15; CALCIUM 9.8 MG/DL (8.5-10.1); CARBON DIOXIDE 26 MMOL/L (21-32); CHLORIDE 103 MMOL/L (98-107); CREATININE SERUM 0.75 MG/DL (0.60-1.30); GFR ESTIMATED > 60; GLUCOSE 112 MG/DL (70-105); INR 0.9 (0.8-1.4); POTASSIUM 4.1 MMOL/L (3.6-5.0); PROTHROMBIN TIME PATIENT 12.9 SEC (12.2-14.7); SODIUM 141 MMOL/L (135-145); TOTAL PROTEIN 7.3 GM/DL (6.4-8.2)
[2019-02-07 14:47] LABS: ERYTHROCYTE SEDIMENTATION RATE 3 MM/HR (0-30)
[2019-02-08] MEDS ORDERED: METH10TA3 PO (10:15)
[2019-02-08] MEDS ORDERED: RT-ALBUINH INH (10:15)
== END 2019-02-07 14:00 | disposition home or self-care (01) ==
LOC: PREOP 12:45
PROVIDERS: ATTEND Orthopaedic Surgery
DX: Z01.811 Encounter for preprocedural respiratory examination (principal); Z01.812 Encounter for preprocedural laboratory examination; Z11.2 Encounter for screening for other bacterial diseases; M17.11 Unilateral primary osteoarthritis, right knee; R53.83 Other fatigue
CPT/HCPCS: 36415; 71046; 80053; 81000; 85025; 85610; 85652; 86850; 86900; 86901; 87081

== ENCOUNTER 2019-02-15 05:59 | Inpatient (IN) | payer BC ==
--- NOTE | 2019-02-06 13:28 | HISTORY AND PHYSICAL ---
DATE OF SERVICE: DATE OF ADMISSION: 02/15/2019. This will be for inpatient admission on 02/15/2019 for right total knee arthroplasty. Date of service, date of surgery and date of admission is 02/15/2019. The patient will require regular inpatient admission due to mobility issues, physical therapy needs and pain management considerations. HISTORY OF PRESENT ILLNESS: The patient is a 53-year-old female with longstanding history of right knee pain. She has undergone treatment with injections, anti-inflammatories as well as arthroscopy without relief. Radiographs revealed severe medial compartment arthrosis. She reports progressive symptoms with activity limitations and because of this, would like to pursue surgical intervention. REVIEW OF SYSTEMS: No chest pain, no shortness of breath. No dysuria. PAST MEDICAL HISTORY: Narcolepsy, hepatitis C and hyperlipidemia. PAST SURGICAL HISTORY: Shoulder arthroscopy, knee arthroscopy, ganglion cyst excision, tubal ligation, right ankle and hysterectomy. FAMILY HISTORY: Significant for diabetes, hypertension, Alzheimer's and ischemic heart disease. PRIMARY CARE PROVIDER: . MEDICATIONS: Provigil, tramadol, Celexa, Ritalin and amlodipine. ALLERGIES: No known drug allergies. SOCIAL HISTORY: The patient smokes 1 pack per day. Drinks alcohol occasionally. PHYSICAL EXAMINATION: GENERAL: The patient is well developed, well-nourished, in no acute distress. HEENT: Normocephalic, atraumatic. Pupils are equal, round and reactive to light. Oropharynx is clear. NECK: Supple, no lymphadenopathy. LUNGS: Clear to auscultation bilaterally. HEART: Regular rate and rhythm. ABDOMEN: Soft, nontender, nondistended. EXTREMITIES: The patient ambulates with an antalgic gait. The right knee demonstrates range of motion of 0/0/130 with no varus valgus laxity, negative anterior and posterior drawer. A slight effusion is noted. She has patellofemoral crepitus, tenderness along the medial joint line, pain medially with Irving's. IMPRESSION: Right knee severe osteoarthritis, unresponsive to conservative measures. PLAN: Right total knee arthroplasty. Risks, benefits, options, ramifications and recovery have been discussed at length with the patient. She understands and wishes to proceed. Job ID: [id number] DocumentID: [id number] Dictated Date: 02/06/2019 12:33:32 Can Top Setter Date: 02/06/2019 13:27:54 Dictated By: MARTINEZ SAUCEDO MD
--- NOTE | 2019-02-08 10:18 | NUR ---
VERIFIED MED LIST IN THE COMPUTER FROM PREOP WITH WHAT HAS BEEN FILLED RECENTLY AT [facility]. NO DISCREPANCIES WERE NOTED, I DID NO RE-INTERVIEW THE PATIENT AT THIS TIME. [facility] FILLED: 01-31-19 TRAMADOL 50MG Q6H PRN #60 01-28-19 LIPITOR 20MG HS #90 01-28-19 NORVASC 5MG DAILY #90 01-28-19 PAXIL 30MG DAILY #30 01-23-19 PROVIGIL 200MG DAILY #30 01-11-19 RITALIN 10MG DAILY #30 12-27-18 TRIAMTERENE HCTZ 37.5-25 DAILY #30 12-13-18 ESTRADIOL 0.5MG DAILY #90 11-30-18 VENTOLIN
[~2019-02-15] VITALS: Ht 166.4 cm; Wt 101.6 kg
[2019-02-15] VITALS (13 sets, daily range): BP systolic 111–185; BP diastolic 72–109
[~2019-02-15 05:59] MED LIST changes: +ATOR20TA66 PO; +ESTR0.5T PO; +METH-290 PO; +METH10TA3 PO; +PARO30TA3 PO; +RT-ALBUINH INH; +TRAM50TA2 PO; +TRIA1CAP4 PO
--- OUTSIDE RECORDS SUMMARY | 2019-02-15 06:03 | XMS REPORT ---
Author Author STACEY Savage Organization [facility] Address [address] [place] [address] Care Team Providers Care Finished Cloth Examiner Name Role Phone STACEY Savage Unavailable PROBLEMS Unknown Problems ALLERGIES No Known Allergies ENCOUNTERS Encounter Location Date Diagnosis [facility] [address] [id number] January, Bronchitis J40 [facility] [id number] [place] [id number] Oct, Bronchitis J40 and Orthopnea R06.01 [facility] [address] [id number] January, Pneumonia due to infectious organism, unspecified laterality, unspecified part of lung J18.9 and Cough R05 [place] [id number] [place] [phone] Jun, Encounter for immunization Z23 [place] [id number] [place] [phone] Jun, Encounter for immunization Z23 [place] [id number] [place] [phone] Dec, [place] [id number] [place] [phone] Dec, [place] [address] [phone] Jun, [place] [id number] [place] [phone] Jun, IMMUNIZATIONS No Known Immunizations SOCIAL HISTORY Never Assessed REASON FOR VISIT fever/body aches-Afsaneh COUCH, dyspnea PLAN OF CARE Activity Details Follow Up prn Reason: VITAL SIGNS Height 65 in 2017-11-11 Weight 203 lbs 2017-11-11 Temperature 98.7 degrees Fahrenheit 2017-11-11 Heart Rate 105 bpm 2017-11-11 Respiratory Rate 20 2017-11-11 Oximetry 96 % 2017-11-11 BMI 33.78 kg/m2 2017-11-11 Blood pressure systolic 123 mmHg 2017-11-11 Blood pressure diastolic 75 mmHg 2017-11-11 MEDICATIONS Medication Instructions Dosage Frequency Start Date End Date Duration Status Celexa Active Ventolin HFA 108 (90 Base) MCG/ACT Inhalation every 6 hrs 2 puffs as needed 6h Oct, Active Doxycycline Hyclate 100 mg Orally every 12 hrs 1 capsule 12h Oct, Nov, 10 days Active Norvasc Active PredniSONE 20 mg Orally Once a day with food 3 tablets x 3 days, 2 tablets x 3 days, then 1 tab x 2 days 8 days Active Promethazine-Codeine 6.25-10 MG/5ML Orally every 6 hrs 5-10 ml as needed for cough 6h 7 days Active Provigil Active Mobic Not-Taking Tramadol HCl Active RESULTS No Results PROCEDURES Procedure Date Ordered Result Body Site NEB/MDI RX INITIAL Nov 11, 2017 INSTRUCTIONS MEDICATIONS ADMINISTERED No Known Medications MEDICAL (GENERAL) HISTORY Type Description Date Medical History Narcolepsy Surgical History neck surgery 2017
--- OUTSIDE RECORDS SUMMARY | 2019-02-15 06:03 | XMS REPORT ---
Author Author KACEY PAGE [facility] Address [address] [place] [address] Care Team Providers Care Hardening Machine Operator Name Role Phone SHERIEAisha KACEY Unavailable PROBLEMS Unknown Problems ALLERGIES No Known Allergies ENCOUNTERS Encounter Location Date Diagnosis [facility] [id number] [place] [phone] January, Bronchitis J40 [facility] [address] [id number] Oct, Bronchitis J40 and Orthopnea R06.01 [facility] [id number] [place] [id number] January, Pneumonia due to infectious organism, unspecified laterality, unspecified part of lung J18.9 and Cough R05 [place] [id number] [place] [phone] Jun, Encounter for immunization Z23 [place] [id number] [place] [phone] Jun, Encounter for immunization Z23 [place] [id number] [place] [phone] Dec, [place] [id number] [place] [phone] Dec, [place] [address] [phone] Jun, [place] [id number] [place] [phone] Jun, IMMUNIZATIONS Vaccine Route Administration Date Status ROCEPHIN 250 MG (IM) IM Intramuscular February 03, 2018 Administered KENALOG 40 MG/ML (PER 10 MG) IM Intramuscular February 03, 2018 Administered SOCIAL HISTORY Never Assessed REASON FOR VISIT cough/exhaustion-[facility]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 PLAN OF CARE Activity Details Follow Up if not improving with PCP or reg follow up Reason: VITAL SIGNS Height 65 in 2018-02-03 Weight 210 lbs 2018-02-03 Temperature 99.2 degrees Fahrenheit 2018-02-03 Heart Rate 90 bpm 2018-02-03 Respiratory Rate 18 2018-02-03 BMI 34.94 kg/m2 2018-02-03 Blood pressure systolic 134 mmHg 2018-02-03 Blood pressure diastolic 90 mmHg 2018-02-03 MEDICATIONS Medication Instructions Dosage Frequency Start Date End Date Duration Status Augmentin 875-125 MG Orally every 12 hrs 1 tablet 12h January, January, 10 day(s) Active Ventolin HFA 108 (90 Base) MCG/ACT Inhalation every 6 hrs 2 puffs as needed 6h Oct, Active Celexa Active Promethazine-Codeine 6.25-10 MG/5ML Orally every 6 hrs 5-10 ml as needed for cough 6h Active Symbicort 160-4.5 MCG/ACT Inhalation Twice a day 2 puffs 12h Active Norvasc Active Provigil Active RESULTS No Results PROCEDURES Procedure Date Ordered Result Body Site KENALOG 40 MG/ML (PER 10 MG) February 03, 2018 ROCEPHIN 250 MG (IM) February 03, 2018 THER/PROPH/DIAG INJ, SC/IM February 03, 2018 INSTRUCTIONS MEDICATIONS ADMINISTERED No Known Medications MEDICAL (GENERAL) HISTORY Type Description Date Medical History Narcolepsy Surgical History neck surgery 2017
--- OUTSIDE RECORDS SUMMARY | 2019-02-15 06:03 | XMS REPORT ---
Author Author LYSSA PETTIT [facility] Address [address] [place] [address] Care Team Providers Care Engagement Specialist Name Role Phone LYSSA PETTIT Unavailable PROBLEMS No Known Problems ALLERGIES No Known Allergies ENCOUNTERS Encounter Location Date Diagnosis [facility] [address] [phone] Aug, Coughing R05 and Bilateral pulmonary infiltrates on chest x-ray R91.8 [facility] [address] [phone] Aug, Viral upper respiratory tract infection J06.9 and Wheezing R06.2 [facility] [id number] [place] [id number] January, Bronchitis J40 [facility] [address] [id number] Oct, Bronchitis J40 and Orthopnea R06.01 [facility] [id number] [place] [id number] January, Pneumonia due to infectious organism, unspecified laterality, unspecified part of lung J18.9 and Cough R05 [facility] [id number] [place] [phone] Jun, Encounter for immunization Z23 [facility] [address] [phone] Jun, Encounter for immunization Z23 [facility] [id number] [place] [phone] 14 Dec, 2014 [facility] [address] [phone] Dec, [facility] [address] [facility] [id number] [place] [address] Jun, [facility] [address] [facility] [id number] [place] [address] Jun, IMMUNIZATIONS No Known Immunizations SOCIAL HISTORY Never Assessed REASON FOR VISIT cough with mucus production, body aches, headaches, stomach troubles; SOB - MPet IZA whitten PLAN OF CARE Activity Details Follow Up as needed or reg fu with pcp Reason: VITAL SIGNS Height 65 in 2018-09-06 Weight 213.2 lbs 2018-09-06 Temperature 97.2 degrees Fahrenheit 2018-09-06 Heart Rate 96 bpm 2018-09-06 Respiratory Rate 20 2018-09-06 Oximetry on room air:98 % 2018-09-06 BMI 35.47 kg/m2 2018-09-06 Blood pressure systolic 140 mmHg 2018-09-06 Blood pressure diastolic 68 mmHg 2018-09-06 MEDICATIONS Medication Instructions Dosage Frequency Start Date End Date Duration Status Provigil Active Ventolin HFA 108 (90 Base) MCG/ACT Inhalation every 6 hrs 2 puffs as needed 6h Oct, Active Symbicort 160-4.5 MCG/ACT Inhalation Twice a day 2 puffs 12h 30 Active Tramadol HCl 50 MG Orally every 6 hrs 1 tablet as needed 6h Active Promethazine-Codeine 6.25-10 MG/5ML Orally every 6 hrs 5 ml as needed 6h Aug, 3 days Active ProAir HFA 108 (90 Base) MCG/ACT Inhalation every 4 hrs 2 puffs as needed 4h Aug, 7 days Active PredniSONE 20 mg Orally Once a day 1 tablet 24h Aug, 5 days Active Prozac Active Norvasc Active Albuterol Sulfate (2.5 MG/3ML) 0.083% Inhalation every 4 hours as needed 3 ml as needed Aug, 10 days Active Ritalin Active RESULTS No Results PROCEDURES No Known procedures INSTRUCTIONS MEDICATIONS ADMINISTERED No Known Medications MEDICAL (GENERAL) HISTORY Type Description Date Medical History Narcolepsy Surgical History neck surgery 2017
--- OUTSIDE RECORDS SUMMARY | 2019-02-15 06:03 | XMS REPORT ---
Author Author Migration, Doctor Organization [facility] Address Unknown Phone Unavailable Care Team Providers Care Security And Privacy Consultant Name Role Phone Migration, Doctor Unavailable Unavailable PROBLEMS No Known Problems ALLERGIES No Information ENCOUNTERS Encounter Location Date Diagnosis [facility] [id number] [place] [phone] 16 Oct, 2018 [facility] [address] [address] Oct, Non-recurrent acute suppurative otitis media of both ears without spontaneous rupture of tympanic membranes H66.003 [facility] WALK IN [facility] [id number] [place] [phone] Aug, Coughing R05 and Bilateral pulmonary infiltrates on chest x-ray R91.8 [facility]ALK [facility] [id number] [place] [phone] Aug, Viral upper respiratory tract infection J06.9 and Wheezing R06.2 [place] [id number] [place] [id number] January, Bronchitis J40 [place] [id number] [place] [phone] Oct, Bronchitis J40 and Orthopnea R06.01 [place] [id number] [place] [phone] January, Pneumonia due to infectious organism, unspecified laterality, unspecified part of lung J18.9 and Cough R05 [facility] [id number] [place] [phone] Jun, Encounter for immunization Z23 [facility] [id number] [place] [phone] Jun, Encounter for immunization Z23 [facility] [address] [facility] [id number], [place] [address] Dec, [facility] [address] [facility] [id number], [place] [address] Dec, [facility] [address] [facility] [id number], [place] [address] Jun, [facility] [address] [facility] [id number], [place] [address] Jun, IMMUNIZATIONS No Known Immunizations SOCIAL HISTORY Never Assessed REASON FOR VISIT EMR-[facility] PLAN OF CARE VITAL SIGNS MEDICATIONS Medication Instructions Dosage Frequency Start Date End Date Duration Status PredniSONE 20 mg 3 tablet by Oral route 1 time per day for 5 day(s) with food in morning Jun, Active Flonase 50 mcg/actuation 1 sprays by Nasal route 2 times per day in each nostril Jun, Active RESULTS No Results PROCEDURES No Known procedures INSTRUCTIONS MEDICATIONS ADMINISTERED No Known Medications MEDICAL (GENERAL) HISTORY Type Description Date Medical History Narcolepsy Surgical History neck surgery 2017
--- OUTSIDE RECORDS SUMMARY | 2019-02-15 06:03 | XMS REPORT ---
Author Author Migration, Doctor Organization [facility] [place] Address Unknown Phone Unavailable Care Team Providers Care Slurry Tank Operator Name Role Phone Migration, Doctor Unavailable Unavailable PROBLEMS No Known Problems ALLERGIES No Information ENCOUNTERS Encounter Location Date Diagnosis [facility] [id number] [place] [phone] 16 Oct, 2018 [facility] [address] [address] Oct, Non-recurrent acute suppurative otitis media of both ears without spontaneous rupture of tympanic membranes H66.003 [facility] [place] [id number] [place] [phone] Aug, Coughing R05 and Bilateral pulmonary infiltrates on chest x-ray R91.8 [facility] [id number] [place] [phone] Aug, Viral upper respiratory tract infection J06.9 and Wheezing R06.2 [place] [id number] [place] [id number] January, Bronchitis J40 [place] [id number] [place] [phone] Oct, Bronchitis J40 and Orthopnea R06.01 [place] [id number] [place] [phone] January, Pneumonia due to infectious organism, unspecified laterality, unspecified part of lung J18.[address] [facility] [id number] [place] [phone] Jun, Encounter for immunization Z23 [facility] [id number] [place] [phone] Jun, Encounter for immunization Z23 [facility] [address] [facility] [id number] [address] Dec, [facility] [address] [id number] [address] Dec, [facility] [address] [facility] [id number], [place] [address] Jun, [facility] [address] [id number], [place] [address] Jun, IMMUNIZATIONS No Known Immunizations SOCIAL HISTORY Never Assessed REASON FOR VISIT [place] PLAN OF CARE VITAL SIGNS MEDICATIONS Unknown Medications RESULTS No Results PROCEDURES No Known procedures INSTRUCTIONS MEDICATIONS ADMINISTERED No Known Medications MEDICAL (GENERAL) HISTORY Type Description Date Medical History Narcolepsy Surgical History neck surgery 2017
--- OUTSIDE RECORDS SUMMARY | 2019-02-15 06:03 | XMS REPORT ---
Author Author LYSSA PETTIT [facility] Address [address] [place] [address] Care Team Providers Care Roller Painter Name Role Phone LYSSA PETTIT Unavailable PROBLEMS No Known Problems ALLERGIES No Known Allergies ENCOUNTERS Encounter Location Date Diagnosis [facility] IN [facility] [address] [address] Aug, Coughing R05 and Bilateral pulmonary infiltrates on chest x-ray R91.8 [facility] [address] [address] Aug, Viral upper respiratory tract infection J06.9 and Wheezing R06.2 [facility] [id number] [place] [phone] January, Bronchitis J40 [facility] [address] [id number] Oct, Bronchitis J40 and Orthopnea R06.01 [facility] [id number] [place] [phone] January, Pneumonia due to infectious organism, unspecified laterality, unspecified part of lung J18.9 and Cough R05 [facility] [id number] [place] [phone] Jun, Encounter for immunization Z23 [facility] [address] [address] Jun, Encounter for immunization Z23 [facility] [id number] [place] [phone] 14 Dec, 2014 [facility] [address] [address] Dec, [facility] [address] [facility] [id number] [place] [address] Jun, [facility] [address] [facility] [id number] [place] [address] Jun, IMMUNIZATIONS No Known Immunizations SOCIAL HISTORY Never Assessed REASON FOR VISIT Congestion, cough for the past 2 weeks. was in the [facility] for this complaint on the . lyn PLAN OF CARE Activity Details Follow Up as needed or reg fu with pcp Reason: VITAL SIGNS Height 65 in 2018-09-09 Weight 215.2 lbs 2018-09-09 Temperature 97.8 degrees Fahrenheit 2018-09-09 Heart Rate 88 bpm 2018-09-09 Respiratory Rate 20 2018-09-09 Oximetry on room air:97 % 2018-09-09 BMI 35.81 kg/m2 2018-09-09 Blood pressure systolic 142 mmHg 2018-09-09 Blood pressure diastolic 86 mmHg 2018-09-09 MEDICATIONS Medication Instructions Dosage Frequency Start Date End Date Duration Status Symbicort 160-4.5 MCG/ACT Inhalation Twice a day 2 puffs 12h 30 Active Ventolin HFA 108 (90 Base) MCG/ACT Inhalation every 6 hrs 2 puffs as needed 6h Oct, Active Provigil Active Prozac Active Promethazine-Codeine 6.25-10 MG/5ML Orally every 6 hrs 5 ml as needed 6h Aug, 5 days Active PredniSONE 20 mg Orally Once a day 1 tablet 24h Aug, 5 days Active ProAir HFA 108 (90 Base) MCG/ACT Inhalation every 4 hrs 2 puffs as needed 4h Aug, 7 days Active Ritalin Active Tramadol HCl 50 MG Orally every 6 hrs 1 tablet as needed 6h Active Doxycycline Monohydrate 100 mg Orally 2 times a day 1 capsule 12h Aug, 7 days Active Norvasc Active Promethazine-Codeine 6.25-10 MG/5ML Orally every 6 hrs 5 ml as needed 6h Aug, 3 days Active Albuterol Sulfate (2.5 MG/3ML) 0.083% Inhalation every 4 hours as needed 3 ml as needed Aug, 10 days Active RESULTS No Results PROCEDURES Procedure Date Ordered Result Body Site X-RAY EXAM CHEST 2 VIEWS Sep 09, 2018 INSTRUCTIONS MEDICATIONS ADMINISTERED No Known Medications MEDICAL (GENERAL) HISTORY Type Description Date Medical History Narcolepsy Surgical History neck surgery 2018
--- OUTSIDE RECORDS SUMMARY | 2019-02-15 06:03 | XMS REPORT | Clinical Summary ---
Author Author [facility] Organization [facility] Address Unknown Phone Unavailable Care Team Providers Care Fabricating Machine Operator Name Role Phone Joseline Donaldson GAS WELDING EQUIPMENT MECHANIC Unavailable Source Comments Some departments are not documenting in the electronic medical record. If you d o not see the information that you expected, contact Release of Information in [facility] [employer] Information Management department at [phone] for further assistan ce in locating additional records.[facility] Allergies Not on File Medications Not on file Active Problems Not on file Social History Date Tobacco Use Types Packs/Day Years Used Never Assessed Sex Assigned at Date Recorded Not on file Industry Job Start Date Occupation Not on file Not on file Not on file Travel End Travel History Travel Start No recent travel history available. Last Filed Vital Signs Not on file Plan of Treatment Health Maintenance Due Date Last Done Comments PHYSICAL (COMPREHENSIVE) 1973 EXAM HIV SCREENING 1981 DTAP/TDAP VACCINES (1 - 1984 Tdap) CERVICAL CANCER SCREENING 1996 BREAST CANCER SCREENING 2006 COLORECTAL CANCER 2016 SCREENING SHINGLES RECOMBINANT 2016 VACCINE (1 of 2) INFLUENZA VACCINE 06/20/2019 Results Not on filefrom Last 3 Months Advance Directives Patient has advance care planning documents on file. For more information, niecy lopez contact: [address] [address]
--- OUTSIDE RECORDS SUMMARY | 2019-02-15 06:04 | XMS REPORT | Continuity of Care Document ---
Author Author [facility] Organization [facility] Address Unknown Phone Unavailable Care Team Providers Care Farm Mortgage Agent Name Role Phone TANAJACKIE HUSSEIN PP Insurance Providers Payer Name Policy Number Subscriber Name Relationship [facility] [id number] Radha Ashton 01 Self / Same As Patient Problems No Known Problems or Medical conditions. Allergies, Adverse Reactions, Alerts Allergen Type Severity Reaction Last Updated SEASONAL, ENVIRONMENTAL Allergy Mild 07/31/10 Medications Medication Dose Units Route Sig Qty Days Naproxen (Naprosyn) 1 Each PO BID PRN 20 Acetaminophen/Hydrocodone Bitart (Hydrocodone-Apap 5-500 Cap) 1 - 2 Each PO Q6HR PRN 14 Modafinil (Provigil) 200 Mg PO DAILY Simvastatin (Zocor) 10 Mg PO DAILY Response Recorded Date/Time Status not known Unknown Results No Known Relevant Diagnostic Tests, Laboratory Data and/or Discharge Summary. Procedures Procedure Code Date DIAGNOSTIC COLONOSCOPY 45900 08/09/06 Encounters Encounter Location Date/Time Departed Emergency Room [facility] 07/31/10 8:59am
--- OUTSIDE RECORDS SUMMARY | 2019-02-15 06:04 | XMS REPORT | Continuity of Care Document ---
Author Organization Unknown Address Unknown Allergies Active Description Code Type Severity Reaction Onset Reported/Identified Relationship to Patient Clinical Status Yes SEASONAL, ENVIRONMENTAL SEASONAL, ENVIRONMENTAL Mild N/A 07/31/2010 Yes No Known Drug Allergies [id number] Drug Allergy Unknown N/A 02/07/2019 Medications There is no data. 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 09/30/[address] [facility] Ot M48.061 SPINAL STENOSIS, LUMBAR REGION WITHOUT N 09/30/[address] [facility] Ot M51.26 OTHER INTERVERTEBRAL DISC DISPLACEMENT, 09/30/[address] [facility] Ot R20.0 ANESTHESIA OF SKIN 10/01/2017 TAMEKA GAUTHIER, PAULA Perry M48.02 SPINAL STENOSIS, CERVICAL REGION 10/12/2017 RENU WATERS DO Ot S14.159A OTH INCMPL LESION AT UNSP LEVEL OF CERV 10/12/2017 RENU WATERS DO Ot S24.119A COMPLETE LESION AT UNSP LEVEL OF THORACI 10/12/2017 RENU WATERS DO Ot Z01.810 ENCOUNTER FOR PREPROCEDURAL CARDIOVASCUL 10/12/2017 RENU WATERS DO Ot S14.159A OTH INCMPL LESION AT UNSP LEVEL OF CERV 10/12/2017 RENU WATERS DO Ot S24.119A COMPLETE LESION AT UNSP LEVEL OF THORACI 10/12/2017 RENU WATERS DO Ot Z01.810 ENCOUNTER FOR PREPROCEDURAL CARDIOVASCUL 10/13/2017 TAMEKA GAUTHIER, PAULA Ot M48.02 SPINAL STENOSIS, CERVICAL REGION 10/14/2017 RENU WATERS DO Ot M47.814 SPONDYLOSIS W/O MYELOPATHY OR RADICULOPA 10/14/2017 RENU WATERS DO, Ot M48.02 SPINAL STENOSIS, CERVICAL REGION 10/21/2017 RENU WATERS DO Ot S14.159A OTH INCMPL LESION AT UNSP LEVEL OF CERV 10/21/2017 RENU WATERS DO Ot S24.119A COMPLETE LESION AT UNSP LEVEL OF THORACI 10/21/2017 RENU WATERS DO Ot Z01.810 ENCOUNTER FOR PREPROCEDURAL CARDIOVASCUL 12/04/2017 SIOMARA ALLEN DO Ot B19.20 UNSPECIFIED VIRAL HEPATITIS C WITHOUT HE 12/04/2017 SIOMARA ALLEN DO Ot E78.00 PURE HYPERCHOLESTEROLEMIA, UNSPECIFIED 12/04/2017 SIOMARA ALLEN DO Ot F17.210 NICOTINE DEPENDENCE, CIGARETTES, UNCOMPL 12/04/2017 SIOMARA ALLEN DO Ot I10 ESSENTIAL (PRIMARY) HYPERTENSION 12/04/2017 SIOMARA ALLEN DO, Ot M79.89 OTHER SPECIFIED SOFT TISSUE DISORDERS 12/04/2017 GENOA SIOMARA IZAGUIRRE Ot R60.0 LOCALIZED EDEMA 12/04/2017 GENOA SIOMARA IZAGUIRRE Ot Z87.19 PERSONAL HISTORY OF OTHER DISEASES OF TH 12/04/2017 TIFFANY SIOMARA IZAGUIRRE Ot Z87.448 PERSONAL HISTORY OF OTHER DISEASES OF UR [facility]711 ACQUIRED ABSENCE OF UTERUS WITH REMAININ 12/04/2017 [facility] Z98.1 ARTHRODESIS STATUS 12/04/2017 [facility], [facility] Billy Ot Z98.51 TUBAL LIGATION STATUS 12/07/2017 [facility] B19.20 UNSPECIFIED VIRAL HEPATITIS C WITHOUT HE 12/07/2017 [facility] Ot E78.00 PURE HYPERCHOLESTEROLEMIA, UNSPECIFIED 12/07/2017 [facility] F17.210 NICOTINE DEPENDENCE, CIGARETTES, UNCOMPL 12/07/2017 [facility] I10 ESSENTIAL (PRIMARY) HYPERTENSION 12/07/2017 [facility] M79.89 OTHER SPECIFIED SOFT TISSUE DISORDERS 12/07/2017 [facility] R60.0 LOCALIZED EDEMA 12/07/2017 [facility] Z87.19 PERSONAL HISTORY OF OTHER DISEASES OF TH 12/07/2017 TIFFANY SIOMARA IZAGUIRRE Ot Z87.448 PERSONAL HISTORY OF OTHER DISEASES OF UR 12/07/2017 [facility] Z90.711 ACQUIRED ABSENCE OF UTERUS WITH REMAININ 12/07/2017 [facility] Cervantes Ot Z98.1 ARTHRODESIS STATUS 12/07/2017 [facility] SIOM[facility] K Ot Z98.51 TUBAL LIGATION STATUS 02/09/2019 LEWIS GAUTHIER, MARTINEZ Carpio Ot M17.11 UNILATERAL PRIMARY OSTEOARTHRITIS, RIGHT 02/09/2019 MARTINEZ SAUCEDO MD Ot R53.83 OTHER FATIGUE 02/09/2019 MARTINEZ SAUCEDO MD Ot Z01.811 ENCOUNTER FOR PREPROCEDURAL RESPIRATORY 02/09/2019 MARTINEZ SAUCEDO MD Ot Z01.812 ENCOUNTER FOR PREPROCEDURAL LABORATORY E 02/09/2019 MARTINEZ SAUCEDO MD Ot Z11.2 ENCOUNTER FOR SCREENING FOR OTHER BACTER Procedures There is no data. Results Test Result Range [id number] - 10/11/17 08:12 Serum or plasma urea nitrogen measurement (mass/volume) 9 mg/dL 7-18 Serum or plasma creatinine measurement (mass/volume) 0.69 mg/dL 0.60-1.30 Serum or plasma urea nitrogen/creatinine mass ratio 13 NRG Serum or plasma creatinine measurement with calculation of estimated glomerular filtration rate > NRG Complete urinalysis with reflex to culture - 12/04/17 17:17 Urine color determination YELLOW NRG Urine clarity determination CLEAR NRG Urine pH measurement by test strip 8 5-9 Specific gravity of urine by test strip 1.015 1.016-1.022 Urine protein assay by test strip, semi-quantitative NEGATIVE NEGATIVE Urine glucose detection by automated test strip NEGATIVE NEGATIVE Erythrocytes detection in urine sediment by light microscopy NEGATIVE NEGATIVE Urine ketones detection by automated test strip NEGATIVE NEGATIVE Urine nitrite detection by test strip NEGATIVE NEGATIVE Urine total bilirubin detection by test strip NEGATIVE NEGATIVE Urine urobilinogen measurement by automated test strip (mass/volume) NORMAL NORMAL Urine leukocyte esterase detection by dipstick NEGATIVE NEGATIVE Automated urine sediment erythrocyte count by microscopy (number/high power field) RARE NRG Automated urine sediment leukocyte count by microscopy (number/high power field) RARE NRG Bacteria detection in urine sediment by light microscopy NEGATIVE NRG Squamous epithelial cells detection in urine sediment by light microscopy 25-50 NRG Crystals detection in urine sediment by light microscopy NONE NRG Casts detection in urine sediment by light microscopy NONE NRG Mucus detection in urine sediment by light microscopy SMALL NRG Complete urinalysis with reflex to culture NO NRG Renal epithelial cells detection in urine sediment by light microscopy NONE NRG Urine drug screening test - 12/04/17 17:17 Urine phencyclidine detection by screening method NEGATIVE NEGATIVE Urine benzodiazepines detection by screening method POSITIVE NEGATIVE Urine cocaine detection NEGATIVE NEGATIVE Urine amphetamines detection by screening method NEGATIVE NEGATIVE Urine methamphetamine detection by screening method NEGATIVE NEGATIVE Urine cannabinoids detection by screening method NEGATIVE NEGATIVE Urine opiates detection by screening method NEGATIVE NEGATIVE Urine barbiturates detection NEGATIVE NEGATIVE Screening urine tricyclic antidepressants detection NEGATIVE NEGATIVE Urine methadone detection by screening method NEGATIVE NEGATIVE Urine oxycodone detection POSITIVE NEGATIVE Urine propoxyphene detection NEGATIVE NEGATIVE Complete blood count (CBC) with automated white blood cell (WBC) differential - 12/04/17 18:35 Blood leukocytes automated count (number/volume) 10.8 10*3/uL 4.3-11.0 Blood erythrocytes automated count (number/volume) 4.15 10*6/uL 4.35-5.85 Venous blood hemoglobin measurement (mass/volume) 12.9 g/dL 11.5-16.0 Blood hematocrit (volume fraction) 37 % 35-52 Automated erythrocyte mean corpuscular volume 89 [foz_us] 80-99 Automated erythrocyte mean corpuscular hemoglobin (mass per erythrocyte) 31 pg 25-34 Automated erythrocyte mean corpuscular hemoglobin concentration measurement (mass/volume) 35 g/dL 32-36 Automated erythrocyte distribution width ratio 13.3 % 10.0- 14.5 Automated blood platelet count (count/volume) 253 10*3/uL 130-400 Automated blood platelet mean volume measurement 8.8 [foz_us] 7.4-10.4 Automated blood neutrophils/100 leukocytes 68 % 42-75 Automated blood lymphocytes/100 leukocytes 16 % 12-44 Blood monocytes/100 leukocytes 13 % 0-12 Automated blood eosinophils/100 leukocytes 2 % 0-10 Automated blood basophils/100 leukocytes 0 % 0-10 Blood neutrophils automated count (number/volume) 7.4 10*3 1.8-7.8 Blood lymphocytes automated count (number/volume) 1.8 10*3 1.0-4.0 Blood monocytes automated count (number/volume) 1.4 10*3 0.0- 1.0 Automated eosinophil count 0.2 10*3/uL 0.0-0.3 Automated blood basophil count (count/volume) 0.0 10*3/uL 0.0-0.1 PT panel in platelet poor plasma by coagulation assay - 12/04/17 18:35 Prothrombin time (PT) in platelet poor plasma by coagulation assay 13.2 s 12.2-14.7 INR in platelet poor plasma or blood by coagulation assay 1.0 0.8-1.4 Activated partial thromboplastin time (aPTT) in platelet poor plasma bycoagulation assay - 12/04/17 18:35 Activated partial thromboplastin time (aPTT) in platelet poor plasma bycoagulation assay 29 s 24-35 Comprehensive metabolic panel - 12/04/17 18:35 Serum or plasma sodium measurement (moles/volume) 137 mmol/L 135-145 Serum or plasma potassium measurement (moles/volume) 4.4 mmol/L 3.6-5.0 Serum or plasma chloride measurement (moles/volume) 106 mmol/L 98-107 Carbon dioxide 23 mmol/L 21-32 Serum or plasma anion gap determination (moles/volume) 8 mmol/L 5-14 Serum or plasma urea nitrogen measurement (mass/volume) 8 mg/dL 7-18 Serum or plasma creatinine measurement (mass/volume) 0.63 mg/dL 0.60-1.30 Serum or plasma urea nitrogen/creatinine mass ratio 13 NRG Serum or plasma creatinine measurement with calculation of estimated glomerular filtration rate > NRG Serum or plasma glucose measurement (mass/volume) 101 mg/dL 70-105 Serum or plasma calcium measurement (mass/volume) 8.7 mg/dL 8.5-10.1 Serum or plasma total bilirubin measurement (mass/volume) 0.4 mg/dL 0.1-1.0 Serum or plasma alkaline phosphatase measurement (enzymatic activity/volume) 60 U/L 40-136 Serum or plasma aspartate aminotransferase measurement (enzymatic activity/volume) 31 U/L 5-34 Serum or plasma alanine aminotransferase measurement (enzymatic activity/volume) 32 U/L 0-55 Serum or plasma protein measurement (mass/volume) 6.0 g/dL 6.4-8.2 Serum or plasma albumin measurement (mass/volume) 3.5 g/dL 3.2-4.5 Magnesium - 12/04/17 18:35 Magnesium 1.9 mg/dL 1.8-2.4 Serum or plasma lithium measurement (moles/volume) - 12/04/17 18:35 BNP level < pg/mL <100.0 Serum or plasma troponin i.cardiac measurement (mass/volume) - 12/04/17 18:35 Serum or plasma troponin i.cardiac measurement (mass/volume) < ng/mL <0.30 Serum or plasma thyrotropin measurement by detection limit <=0.05 miu/l (units/volume) - 12/04/17 18:35 Serum or plasma thyrotropin measurement by detection limit <=0.05 miu/l (units/volume) 0.38 u[iU]/mL 0.35-4.94 Methicillin resistant Staphylococcus aureus (MRSA) screening culture - 02/07/19 13:28 Methicillin resistant Staphylococcus aureus (MRSA) screening culture NEG NRG Complete blood count (CBC) with automated white blood cell (WBC) differential - 02/07/19 13:35 Blood leukocytes automated count (number/volume) 7.2 10*3/uL 4.3-11.0 Blood erythrocytes automated count (number/volume) 5.10 10*6/uL 4.35-5.85 Venous blood hemoglobin measurement (mass/volume) 15.4 g/dL 11.5-16.0 Blood hematocrit (volume fraction) 44 % 35-52 Automated erythrocyte mean corpuscular volume 85 [foz_us] 80-99 Automated erythrocyte mean corpuscular hemoglobin (mass per erythrocyte) 30 pg 25-34 Automated erythrocyte mean corpuscular hemoglobin concentration measurement (mass/volume) 35 g/dL 32-36 Automated erythrocyte distribution width ratio 13.0 % 10.0- 14.5 Automated blood platelet count (count/volume) 244 10*3/uL 130-400 Automated blood platelet mean volume measurement 9.3 [foz_us] 7.4-10.4 Automated blood neutrophils/100 leukocytes 47 % 42-75 Automated blood lymphocytes/100 leukocytes 37 % 12-44 Blood monocytes/100 leukocytes 13 % 0-12 Automated blood eosinophils/100 leukocytes 2 % 0-10 Automated blood basophils/100 leukocytes 1 % 0-10 Blood neutrophils automated count (number/volume) 3.4 10*3 1.8-7.8 Blood lymphocytes automated count (number/volume) 2.7 10*3 1.0-4.0 Blood monocytes automated count (number/volume) 1.0 10*3 0.0- 1.0 Automated eosinophil count 0.2 10*3/uL 0.0-0.3 Automated blood basophil count (count/volume) 0.0 10*3/uL 0.0-0.1 Comprehensive metabolic panel - 02/07/19 13:35 Serum or plasma sodium measurement (moles/volume) 141 mmol/L 135-145 Serum or plasma potassium measurement (moles/volume) 4.1 mmol/L 3.6-5.0 Serum or plasma chloride measurement (moles/volume) 103 mmol/L 98-107 Carbon dioxide 26 mmol/L 21-32 Serum or plasma anion gap determination (moles/volume) 12 mmol/L 5-14 Serum or plasma urea nitrogen measurement (mass/volume) 11 mg/dL 7-18 Serum or plasma creatinine measurement (mass/volume) 0.75 mg/dL 0.60-1.30 Serum or plasma urea nitrogen/creatinine mass ratio 15 NRG Serum or plasma creatinine measurement with calculation of estimated glomerular filtration rate > NRG Serum or plasma glucose measurement (mass/volume) 112 mg/dL 70-105 Serum or plasma calcium measurement (mass/volume) 9.8 mg/dL 8.5-10.1 Serum or plasma total bilirubin measurement (mass/volume) 0.4 mg/dL 0.1-1.0 Serum or plasma alkaline phosphatase measurement (enzymatic activity/volume) 78 U/L 40-136 Serum or plasma aspartate aminotransferase measurement (enzymatic activity/volume) 32 U/L 5-34 Serum or plasma alanine aminotransferase measurement (enzymatic activity/volume) 45 U/L 0-55 Serum or plasma protein measurement (mass/volume) 7.3 g/dL 6.4-8.2 Serum or plasma albumin measurement (mass/volume) 4.2 g/dL 3.2-4.5 CALCIUM CORRECTED 9.6 mg/dL 8.5-10.1 PT panel in platelet poor plasma by coagulation assay - 02/07/19 13:35 Prothrombin time (PT) in platelet poor plasma by coagulation assay 12.9 s 12.2-14.7 INR in platelet poor plasma or blood by coagulation assay 0.9 0.8-1.4 Erythrocyte sedimentation rate by westergren method - 02/07/19 13:35 Erythrocyte sedimentation rate by westergren method 3 mm 0- 30 Blood type T Indirect antibody screen panel - 02/07/19 13:35 ABO+Rh group ON NRG Blood group antibody screen NEGATIVE NRG Complete urinalysis with reflex to culture - 02/07/19 13:55 Urine color determination YELLOW NRG Urine clarity determination CLEAR NRG Urine pH measurement by test strip 7 5-9 Specific gravity of urine by test strip 1.010 1.016-1.022 Urine protein assay by test strip, semi-quantitative NEGATIVE NEGATIVE Urine glucose detection by automated test strip NEGATIVE NEGATIVE Erythrocytes detection in urine sediment by light microscopy NEGATIVE NEGATIVE Urine ketones detection by automated test strip NEGATIVE NEGATIVE Urine nitrite detection by test strip NEGATIVE NEGATIVE Urine total bilirubin detection by test strip NEGATIVE NEGATIVE Urine urobilinogen measurement by automated test strip (mass/volume) NORMAL NORMAL Urine leukocyte esterase detection by dipstick 1+ NEGATIVE Automated urine sediment erythrocyte count by microscopy (number/high power field) NONE NRG Automated urine sediment leukocyte count by microscopy (number/high power field) RARE NRG Bacteria detection in urine sediment by light microscopy TRACE NRG Squamous epithelial cells detection in urine sediment by light microscopy 5-10 NRG Crystals detection in urine sediment by light microscopy NONE NRG Casts detection in urine sediment by light microscopy NONE NRG Mucus detection in urine sediment by light microscopy NEGATIVE NRG Complete urinalysis with reflex to culture NO NRG Encounters ACCT No. Visit Date/Time Discharge Status Pt. Type Provider Facility Loc./Unit Complaint [id number] 06/28/2014 09:22:00 06/28/2014 23:59:59 CLS Outpatient STACEY FREEMAN APRN Bernard[facility] [id number] 02/07/2019 12:45:00 02/07/2019 14:00:00 DIS Outpatient LEWIS GAUTHIER, MARTINEZ Carpio [facility] PREOP OSTEOARTHRITIS RIGHT KNEE [id number] 12/04/2017 16:22:00 12/04/2017 21:42:00 DIS Emergency TIFFANY SIOMARA IZAGUIRRE K [facility] ER LEGS SWOLLEN [id number] 10/13/2017 14:54:00 10/13/2017 23:59:59 CLS Outpatient RENU WATERS DO [facility] RAD S14.15,S24.119A [id number] 10/11/2017 08:03:00 10/11/2017 23:59:59 CLS Outpatient RENU WATERS DO [facility] RAD S14.15,S24.119A [id number] 10/05/2017 15:06:00 10/05/2017 23:59:59 CLS Preadmit RENU WATERS DO [facility] RAD S14.15,S24.119A [id number] 09/30/2017 15:14:00 09/30/2017 23:59:59 CLS Outpatient PAULA ENGLISH MD [facility] RAD MYELOPATHY [id number] 09/16/2017 15:49:00 09/16/2017 23:59:[address] [facility] RAD PARISH LEG PAIN [id number] 06/11/2017 20:52:00 06/12/2017 06:05:00 DIS Outpatient MARTINEZ JERNIGAN MD [facility] SLEEP ONELIA G47.33 [id number] 06/11/2016 16:17:00 06/11/2016 23:59:59 CLS Outpatient MARTINEZ SAUCEDO MD [facility] RAD LUMBAR SPINAL STENOSIS [id number] 02/02/2016 21:27:00 02/03/2016 09:50:00 DIS Inpatient NESSA MULLER MD [facility] CSD [id number] 11/13/2013 13:52:00 11/13/2013 23:59:59 CLS Outpatient NESSA MULLER MD [facility] CARD [id number] 11/01/2013 06:34:00 11/01/2013 23:59:59 CLS Outpatient NESSA MULLER MD [facility] RAD [id number] 10/29/2013 15:19:00 10/29/2013 17:16:00 DIS Emergency DENNIS MCNEAL MD [facility] ER [id number] 07/10/2013 20:53:00 07/11/2013 16:55:00 DIS Outpatient ROCHELLE WHITTAKERP [facility] SLEEP [id number] 01/26/2019 15:21:00 Document Registration
[2019-02-15] MEDS ORDERED: CEFUROXIME 1.5 GM (ZINACEF) VIAL ONE (06:37)
[2019-02-15] MEDS ORDERED: BUPIVACAINE 0.5% 30 ML (SENSORCAINE) VIAL ONE (06:43)
[2019-02-15] MEDS ORDERED: MIDAZOLAM 2 MG/2 ML (VERSED) VIAL ONE (06:44)
[2019-02-15] MEDS ORDERED: ONDANSETRON 4 MG/2 ML (SDV) Z0FRAN IV ONE (06:45)
[2019-02-15] MEDS ORDERED: CEFUROXIME INJECTION 1,500 MG in WATER (STERILE) FOR INJECTION 15 ML IV ONE (06:45)
[2019-02-15] MEDS ORDERED: FAMOTIDINE 20MG/2ML IV (PEPCID) IV ONE (06:45)
[2019-02-15] MEDS: LACTATED RINGERS 1,000 ML IV PRN ×2 (06:46→08:30)
[2019-02-15] MEDS ORDERED: ACETAMINOPHEN 325 MG TABLET PO PRN (07:15)
[2019-02-15] MEDS ORDERED: diphenhydrAMINE 50 MG/ML INJ (BENADRYL) IVP PRN (07:15)
[2019-02-15] MEDS ORDERED: ONDANSETRON 4 MG/2 ML (SDV) Z0FRAN IVP PRN ×2 (07:15→09:30)
[2019-02-15] MEDS ORDERED: morphine PCA 100 MG/100 ML BAG IV PRN (07:15)
[2019-02-15] MEDS ORDERED: ONDANSETRON 4 MG/2 ML (SDV) Z0FRAN ONE (07:26)
[2019-02-15] MEDS ORDERED: proPOfol 200 MG/20 ML (DIPRIVAN) VIAL IV ONE (07:26)
[2019-02-15] MEDS ORDERED: SEVOFLURANE (ULTANE) 15 ML INHAL SOLN ONE (07:26)
[2019-02-15] MEDS ORDERED: DEXAMETHASONE 10 MG/ML (DECADRON) 1 ML VIAL ONE (07:26)
[2019-02-15] MEDS ORDERED: LIDOCAINE PF 2% 5 ML (XYLOCAINE) VIAL ONE (07:26)
[2019-02-15] MEDS ORDERED: fentaNYL INJECTION 250 MCG/5 ML AMP ONE (07:27)
--- NOTE | 2019-02-15 07:29 | Progress Note-Pre Operative ---
Pre-Operative Progress Note H&P Reviewed The H&P was reviewed, patient examined and no changes noted. Date Seen by Provider: February 15, 2019 Time Seen by Provider: 07:20 Date H&P Reviewed: February 15, 2019 Time H&P Reviewed: 07:11 Pre-Operative Diagnosis: right knee primary osteoarthritis MARTINEZ SAUCEDO MD February 15, 2019 07:29
[2019-02-15] MEDS ORDERED: INTRA-ARTICULAR IU ONE ×5 (07:30)
--- NOTE | 2019-02-15 07:30 | Progress Note-Post Operative ---
Post-Operative Progess Note Surgeon (s)/Coffee Roaster (s) Surgeon MARTINEZ SAUCEDO MD Coffee Roaster: Charles Lara Pre-Operative Diagnosis right knee primary osteoarthritis Post-Operative Diagnosis right knee primary osteoarthritis Procedure & Operative Findings Date of Procedure 02/15/19 Procedure Performed/Findings right total knee arthroplasty Anesthesia Type GETA Estimated Blood Loss Estimated blood loss (mL): minimal Specimens/Packing Specimens Removed none Packing: none MARTINEZ SAUCEOD MD February 15, 2019 07:30
[2019-02-15] MEDS ORDERED: OXYC1TAB87 PO (07:32)
--- NOTE | 2019-02-15 07:33 | D/C HH Face to Face Order ---
D/C Face to Face Orders Instructions for Patient [facility], Patient Instructions/FollowUp: three weeks Physician to follow Patient: three weeks Discharge Diet for Home: Regular Diet Patient Data-Allergies,Ht & Wt Patient Allergies: Coded Allergies: No Known Drug Allergies (Unverified , 02/07/19) Height (Feet): 5 Height (Inches): 5.50 Weight (Pounds): 224 Weight (Ounces): 0.0 Home Health Need/Face to Face Date of Face to Face: February 15, 2019 Clinical Findings: Instability, Muscle weakness, Pain with ambulation, Unsteady gait I have seen Pt [id number]: Yes Discharged To: Home Diagnosis/Conditions: right total knee arthroplasty Patient is Homebound due to: Genet fall risk due to instabilty, Muscle weakness, Pain w/ambulation Homebound Status Due to the above stated illness, injury or surgical procedure (medical condition or diagnosis) and associated clinical findings, the patient is homebound because of his/her inability to leave home except with aid of a supportive device and/or person AND leaving the home requires a considerable and taxing effort or is medically contraindicated. Pt req the following assistanc: [facility] Nursing Orders Home Health Services Order: Physical Therapy-Evaluate & Treat DC right knee mendoza and apply steri strips 03/01/19 Home Health Infusion Therapy Line Start Date: February 15, 2019 Therapy Orders Therapy Orders: Physical Therapy, PT to assess for OT Therapy Specific Orders: Eval assistive deivces, Teach enviro modifications/safety, Gait training, Increase strength/endurance, Provider maintenance therapy, Restore ROM Certify Stmt I certify that this patient is under my care and that I, a nurse practitioner or a physician; a construction administrative assistant working with me, had a face to face encounter that - meets the physician face to face encounter requirements with this patient as dated. MARTINEZ SAUCEDO MD February 15, 2019 07:33
[2019-02-15] MEDS ORDERED: TRANEXAMIC ACID 100 MG/ML 10 ML INJECTION IV ONE (08:46)
[2019-02-15] MEDS ORDERED: morphine INJ 10 MG/ML 1ML (SYR OR VIAL) ONE (09:20)
[2019-02-15] MEDS ORDERED: HYDROmorphone 2 MG/ML VIAL (DILAUDID) IV ONE (09:30)
[2019-02-15] MEDS ORDERED: MEPERIDINE (DEMEROL) INJ 50 MG/ML IVP ONE (09:30)
[2019-02-15] MEDS ORDERED: morphine INJ 10 MG/ML 1ML (SYR OR VIAL) IVP ONE (09:30)
[2019-02-15] MEDS ORDERED: PROMETHAZINE INJ 25 MG/ML (PHENERGAN) AMP IVP ONE (09:30)
[2019-02-15] MEDS ORDERED: HYDROmorphone 2 MG/ML VIAL (DILAUDID) ONE (09:39)
--- NOTE | 2019-02-15 10:17 | Diagnostic Imaging Report ---
INDICATION: Right total knee arthroplasty. Time of exam: 10:02 AM Two views of the right knee demonstrate postop changes of total knee arthroplasty. Prosthetic elements are in good position. No fracture or loosening is seen. There are overlying skin mendoza. IMPRESSION: Satisfactory postop appearance to the right knee. Dictated by: Dictated on workstation # [id number]
--- NOTE | 2019-02-15 10:45 | NUR ---
RECEIVED FROM RECOVERY, DRESSING DRY AND INTACT TO RIGHT KNEE, BRITTNEY HOSE ON, ICE PACK TO KNEE, O2 ON PER NC AT 4 LITERS, PATIENT RESTLESS. CALL LIGHT WITHIN REACH
--- NOTE | 2019-02-15 10:45 | NUR ---
MIRANDA ASHTON admitted to room 426-1, with an admitting diagnosis of RIGHT TOTAL KNEE, on 02/15/19 from [facility] via BED, accompanied by IVIS WALKER .MIRANDA ASHTON introduced to surroundings, call light, bed controls, phone, TV, temperature control, lights, meal times, smoking policy, visitor policy, side rail policy, bathrooms and showers. Patient Rights given to patient in the handbook. MIRANDA ASHTON verbalizes understanding that [facility] is not responsible for the loss or damage to any personal effects or valuables that are kept in the patients posession during their hospitalization. The following Patient Care Plans were discussed with the PATIENT: Discharge Planning, PAIN, KNOWLEDGE AND IMMOBILITY. MIRANDA ASHTON verbalizes understanding of Interdisciplinary Patient Education.
--- NOTE | 2019-02-15 10:52 | Progress Note-Standard ---
Standard Progress Note Progress Notes/Assess & Plan Date Seen by a Provider: February 15, 2019 Time Seen by a Provider: 10:47 Progress/Assessment & Plan No complaints Radiographs--HW well postioned without fx RLE--dressing intact. INtact DF and PF of toes and ankle. 2 plus DP pulse with brisk cap refill. sensation intact throughout s/p RTKA mobilize as able MARTINEZ SAUCEDO MD February 15, 2019 10:52
[2019-02-15] MEDS ORDERED: morphine PCA 100 MG/100 ML BAG IV ONE (12:01)
--- NOTE | 2019-02-15 12:15 | NUR ---
MORPHINE AUDIO EXPERIENCE EXPERT STARTED WITH 1MG/ML, 3MG BOLUS GIVEN, THEN 1MG EVERY 10 MINUTES WITH 4 HOUR LOCKOUT 20MG, INSTRUCTED ON USE
--- NOTE | 2019-02-15 12:30 | NUR ---
SMALL AMOUNT BLEEDING ON RIGHT KNEE DRESSING, DRESSING REINFORCED, ABD PAD APPLIED, POLAR ICE PACK ON, BRITTNEY HOSE ON, STRESS INCONT.
--- NOTE | 2019-02-15 13:27 | OPERATIVE REPORT ---
DATE OF SERVICE: 02/15/2019 PREOPERATIVE DIAGNOSIS: Right knee primary osteoarthritis. POSTOPERATIVE DIAGNOSIS: Right knee primary osteoarthritis. PROCEDURE: Right total knee arthroplasty. SURGEON: Yo Saucedo MD SVP DIGITAL SALES: Charles Lara, who assisted throughout the procedure and closed the incision. ANESTHESIA: Femoral nerve block plus general endotracheal by Dickson Quintero CRNA. TOURNIQUET TIME: 62 minutes at 300 mmHg. ESTIMATED BLOOD LOSS: Minimal. DRAINS: None. COMPLICATIONS: None. POSTOPERATIVE PLAN: Routine total knee arthroplasty protocol. MATERIALS: MicroPort cemented size 3 femur, cemented size 3 tibia with 10 mm insert and cemented size 29 patellar button. The patient was transferred to recovery room awake and stable condition. STATEMENT OF MEDICAL NECESSITY: The patient is a 53-year-old female with longstanding progressive right knee pain. She has undergone treatment with injections, anti-inflammatories and rest as well as arthroscopy without relief. She reported functional impairment. Radiographs revealed complete loss of medial and patellofemoral joint spaces and due to functional impairment and failure to improve with conservative measures, the patient elected to proceed with surgical intervention. DESCRIPTION OF PROCEDURE: After risks and benefits of the procedure were discussed and questions were answered, an informed consent was signed and placed in chart, the operative site was confirmed in the preoperative holding area initialed by the surgeon. The patient was transferred to the operating room. After adequate levels of general endotracheal anesthetic were obtained, a timeout was called confirming the operative site. The right lower extremity was prepped and draped in the usual sterile fashion with the leg elevated and the knee flexed. Tourniquet was inflated to 300 mmHg. Standard anterior approach was utilized. Hemostasis was obtained with cautery. Medial parapatellar arthrotomy was performed leaving 1 cm cuff on the patella for later reattachment, portion of the fat pad was resected. A subperiosteal release was performed on the proximal medial tibia with curved osteotome being careful to stay on the bony surface. The ACL was resected. Intramedullary guide was passed into the femur. The distal cutting block was placed and distal cut was made. The femur sized to a size 3, and 3 cutting block was placed parallel to the epicondylar axis and cuts were made from posterior to anterior. A subperiosteal release was then carefully performed of the posterior distal femur with curved osteotome being careful to stay on the bony surface. The intramedullary guide was then passed into the tibia. The cutting block was placed. The drop kelly transected the intermalleolar axis and the cut was made. The baseplate was placed. Again, the drop kelly transected the intramedullary access and this was repaired with a drill and keel punch. The tibial trial was placed with a 10 mm insert. The femoral trial was placed and the trochlear cut was made. The patella was then prepared using the freehand technique by resecting 10 mm off the undersurface. A peg guide was placed and the peg holes were drilled. A 29 trial was placed. Knee was taken through range of motion. Full extension was easily obtained, 120 degrees of flexion with gravity was easily obtained. The patella tracked well. There was no anterior/posterior or medial/lateral laxity in flexion or extension. The trials were removed. The joint was irrigated with pulse lavage. Periarticular block was placed in the posterior capsule, medial and lateral retinaculum extensor mechanism and subcutaneous tissues. The bone ends were irrigated and dried and the tibial baseplate was cemented into position. Excess of cement was removed. The superior surface was irrigated and dried and the polyethylene insert was placed. The distal femur was irrigated and dried and the femoral prosthesis was then cemented into position. Excess cement was removed. The undersurface of patella was irrigated and dried. The patellar button was cemented into position. Excess cement was removed. Once the cement had cured, knee was taken through range of motion. Full extension was easily obtained, 120 degrees of flexion with gravity was easily obtained. There was no anterior/posterior or medial/lateral laxity in flexion or extension. The joint was further irrigated with pulse lavage. The arthrotomy was closed with #2 Tevdek in [id number] interrupted fashion. The knee was flexed, patella tracked well. There was no undue tension noted at the repair site. The subcutaneous tissues were irrigated. A total of 6 liters were used throughout the procedure. A 0 Vicryl was used for the deep subcutaneous tissue, 2-0 Vicryl for the superficial subcutaneous tissue, mendoza used on the skin. A soft dressing was applied. The tourniquet was deflated. The patient was transferred to the recovery room awake and in stable condition. Job ID: [id number] DocumentID: [id number] Dictated Date: 02/15/2019 09:15:58 Supervisor Metal Hanging Date: 02/15/2019 13:27:24 Dictated By: YO SAUCEDO MD
--- NOTE | 2019-02-15 14:13 | NUR ---
DR SAUCEDO NOTIFIED OF PATIENTS REQUEST FOR HOME MEDS TO BE STARTED, ORDERS GIVEN
--- NOTE | 2019-02-15 14:19 | Physical Therapy Evaluation ---
PT Evaluation-General Medical Diagnosis Admission Date February 15, 2019 at 05:59 Medical Diagnosis: right TKA Onset Date: February 15, 2019 Therapy Diagnosis Therapy Diagnosis: impaired mobility, strength, endurance, ROM Height/Weight Height (Feet): 5 Height (Inches): 5.50 Weight (Pounds): 224 Weight (Ounces): 0.0 Precautions Precautions/Isolations: Standard Precautions Weight Bear Status Right Lower Extremity: Right Weight Bearing/Tolerated Referral Physician: Charles Lara Reason for Referral: Evaluation/Treatment Medical History Additional Medical History narcolepsy, hep C, hyperlipidemia Reviewed History: Yes Social History Home: Single Level Current Living Status: Spouse Patient is uncooperative with questioning, just states she has a few steps. Prior/Core FIM Prior Level of Function Therapy Code Descriptions/Definitions Functional [place] Measure: 0=Not Assessed/NA 4=Minimal Assistance 1=Total Assistance 5=Supervision or Setup 2=Maximal Assistance 6=Modified [place] 3=Moderate Assistance 7=Complete [place] Therapy Quality Codes: 6 Independent with activity with or without an assistive device 5 Patient requires set up or clean up by helper. Patient completes activity by themselves 4 Supervision or touching assist (CGA). [place] provide cues , steadying assist 3 The helper provides less than half the effort to complete the activity 2 The helper provides more than half the effort to complete the activity 1 Dependent. The helper does all the effort to complete an activity 7 Patient refused to complete or attempt activity 9 The patient did not perform the activity before the current illness or injury 88 Not attempted due to Medical conditions or safety concerns Functional Abilities and Goals: Independent: Patient completed the activities by him/herself, with or without an assistive device, with no assistance from a helper. Needed Some Help: Patient needed partial assistance from another person to complete activities. Dependent: A helper completed the activities for the patient. Unknown: Not Applicable: Bed Mobility: 7 Transfers (B,C,W/C) (FIM): 7 Gait: 7 Stairs: 7 Indoor Mobility (Ambulation): Independent Stairs: Independent Patient states she has a single point cane but doesn't use it. PT Evaluation-Current Subjective Patient in bed pre tx, agrees to PT, has unrated pain in right knee. Patient is uncooperative with questions and won't answer them directly. Pt/Family Goals to be independent at home Objective Patient Orientation: Person, Place, Situation Attachments: Oxygen, IV ROM/Strength ROM Lower Extremities right knee flexion 90 degrees, extension +3 degrees Strength Lower Extremities NT Neuromuscular (Tone, Coordination, Reflexes) NT Sensory Vision: Wears Glasses Hearing: Functional Sensation Right Lower Extremit: Intact Sensation Left Lower Extremity: Intact Transfers Therapy Code Descriptions/Definitions Functional [place] Measure: 0=Not Assessed/NA 4=Minimal Assistance 1=Total Assistance 5=Supervision or Setup 2=Maximal Assistance 6=Modified [place] 3=Moderate Assistance 7=Complete [place] Transfers (B, C, W/C) (FIM): 4 Scootin Rollin Supine to/from Sit: 5 Sit to/from Stand: 4 Patient needs CGA for sit to stand, cues for hand placement and safety. Patient has poor safety awareness, is impulsive. Gait Mode of Locomotion: Walk Anticipated Mode of Locomotion: Walk Gait (FIM): 2 Distance: 80' Gait Level of Assist: 4 Gait Persons Needed: 1 Gait Assistive Device: FWW Comments/Gait Description CGA, Patient takes exaggerated steps, wide stance Balance Sitting Static: Good Sitting Dynamic: Good Standing Static: Good Standing Dynamic: Good Treatment RLE total knee protocol x10 (AP, HS, QS, SLR, SAQ), CPM donned and set to leg and set to 60/-2 degrees. Patient in bed post tx with nurse call, phone, tray, all needs met, in the room. Assessment/Needs Patient has impaired mobility, strength, endurance, ROM post right TKA. CGA for transfers and ambulation. Rehab Potential: Fair PT Short Term Goals Short Term Goals Time Frame: Feb 22, 2019 Transfers (B,C,W/C) (FIM): 5 Gait (FIM): 5 Gait Distance Comment: 150' Gait Level of Assist: 5 Gait Assistive Device: FWW PT Plan Problem List Problem List: Activity Tolerance, Functional Strength, Safety, Balance, Gait, Transfer, Bed Mobility, ROM Treatment/Plan Treatment Plan: Continue Plan of Care Treatment Plan: Bed Mobility, Education, Functional Activity Luis, Functional Strength, Gait, Safety, Therapeutic Exercise, Transfers Treatment Duration: Feb 22, 2019 Frequency: 11 times per week Estimated Hrs Per Day: .25 hour per day (15-30') Patient and/or Family Agrees t: Yes Safety Risks/Education Patient Education: Gait Training, Transfer Techniques, Reviewed Use of Ice, Correct Positioning, Safety Issues Teaching Recipient: Patient Teaching Methods: Demonstration, Discussion Response to Teaching: Reinforcement Needed Discharge Recommendations Plan Patient will perform bed mobility and transfer training, balance and endurance training, functional strengthening, stair training, gait training, and education, to improve functional mobility and independence at home. Therapy D/C Recommendations: Home w/ Family Support Time/GCodes Time In: 1338 Time Out: 1404 Total Billed Treatment Time: 22 Total Billed Treatment 1 visit SERA Cruz' ITZ BLISS PT February 15, 2019 14:19
--- NOTE | 2019-02-15 14:22 | Consultation-Hospitalist ---
HPI History of Present Illness: HPI/Chief Complaint Chief complaint: S/P right knee arthroplasty uncomplicated by Dr. Perez. HPI: This is a clinic Pt of Dr. Cowan and Dr. Pugh who has a PMH of current smoking with ONELIA maintained on CPAP at night with severe narcolepsy maintained on Ritalin who presents after an uncomplicated knee replacement. Her is at the bedside. The interview is limited due to her frequent sleeping episodes due to narcolepsy and her is requesting the Ritalin to be restarted to prevent other issues with respiratory compromise due to the narcolepsy. At this current time pt just completed physical therapy to the nurses station and back and denies any significant pain. I have consulted Dr. Mejia for respiratory management due to high risk of CO2 narcosis and narcolepsy related issues. Source: patient Exam Limitations: no limitations Date Seen 02/15/19 Attending Physician Yo Perez MD PCP Oscar Cowan DO Referring Physician Date of Admission February 15, 2019 at 05:59 Home Medications & Allergies Home Medications Reviewed patient Home Medication Reconciliation performed by pharmacy medication reconciliations engineering technician parking and/or nursing. Patients Allergies have been reviewed. 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[employer]) Alcohol Use: Occasionally Uses 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) Smoking Status: Current Everyday Smoker Type Used: Cigarettes Physical Abuse Screen: No Sexual Abuse: No Recent Foreign Travel: No Contact w/other who traveled: No Recent Hopitalizations: No Recent Infectious Disease Expo: No Immunizations Up To Date Date of Influenza Vaccine: Jun 20, 2013 Seasonal Allergies Seasonal Allergies: Yes Past Medical History Surgeries: Breast, Hysterectomy, Orthopedic, Tubal Ligation Respiratory: Sleep Apnea Currently Using CPAP: Yes Currently Using BIPAP: No Cardiac: High Cholesterol, Hypertension narcolepsy Reproductive: No Sexually Transmitted Disease: No HIV/AIDS: No Hysterectomy, Tubal Ligation Genitourinary: Bladder Infection Gastrointestinal: Diverticulosis, Hepatitis Musculoskeletal: Arthritis, Fibromyalgia, Chronic Back Pain History of Blood Disorders: No Adverse Reaction to Blood Santos: No Family History Alzheimer's disease 19 FATHER Arthritis 19 MOTHER G8 BROTHER G8 SISTER Diabetes mellitus 19 MOTHER G8 SISTER No Pertinent Family Hx Review of Systems Constitutional: see HPI, malaise, weakness EENTM: no symptoms reported Respiratory: no symptoms reported Cardiovascular: no symptoms reported Gastrointestinal: no symptoms reported Genitourinary: no symptoms reported Musculoskeletal: joint pain (right knee) Skin: no symptoms reported Psychiatric/Neurological: Weakness All Other Systems Reviewed Negative Unless Noted: Yes Physical Exam Physical Exam Vital Signs Vital Signs - First Documented 02/15/19 02/15/19 06:25 09:08 Temp 96.9 Pulse 87 Resp 18 B/P (MAP) 111/89 Pulse Ox 95 O2 Delivery Room Air O2 Flow Rate 10 Capillary Refill : Less Than 3 Seconds Height, Weight, BMI Height: 5'5.50" Weight: 224lbs. 0.0oz. 101.316072ps; 36.7 BMI Method:Stated General Appearance: No Apparent Distress, WD/WN, Chronically ill, Obese, Other (lethargic) Eyes: Bilateral Eye Normal Inspection, Bilateral Eye PERRL HEENT: PERRL/EOMI, Normal ENT Inspection, Pharynx Normal Neck: Full Range of Motion, Normal Inspection, Non Tender, Supple, Carotid Bruit Respiratory: Chest Non Tender, Lungs Clear, Normal Breath Sounds, No Accessory Muscle Use, No Respiratory Distress, Decreased Breath Sounds Cardiovascular: Regular Rate, Rhythm, No Edema, No Gallop, No JVD, No Murmur, Normal Peripheral Pulses Gastrointestinal: Normal Bowel Sounds, No Organomegaly, No Pulsatile Mass, Non Tender, Soft Back: Normal Inspection, No CVA Tenderness, No Vertebral Tenderness Extremity: Normal Capillary Refill, Normal Inspection, Normal Range of Motion (decreased right leg), Non Tender, No Calf Tenderness, No Pedal Edema Neurologic/Psychiatric: Alert, Oriented x3, No Motor/Sensory Deficits, Normal Mood/Affect Skin: Normal Color, Warm/Dry Lymphatic: No Adenopathy Results Results/Procedures Labs Patient resulted labs reviewed. Assessment/Plan Assessment and Plan Assess & Plan/Chief Complaint Assessment: s/p right total knee replacement uncomplicated by Dr Perez POD # 0 Severe narcolepsy at high risk for respiratory insufficiency due to anesthesia and ONELIA and pain meds Smoker ONELIA on CPAP Plan: Consult Dr Mejia in case she experiences CO2 narcosis Monitor labs daily Home meds Ritalin for narcolepsy ONELIA use Diagnosis/Problems Diagnosis/Problems (1) Osteoarthritis of right knee Status: Acute Qualifiers: Osteoarthritis type: primary Qualified Codes: M17.11 - Unilateral primary osteoarthritis, right knee (2) Narcolepsy Status: Chronic Qualifiers: Narcolepsy type: due to underlying condition without cataplexy Qualified Codes: G47.429 - Narcolepsy in conditions classified elsewhere without cataplexy (3) ONELIA on CPAP Status: Chronic (4) Smoker Status: Chronic (5) Hypertension Status: Chronic Qualifiers: Hypertension type: essential hypertension Qualified Codes: I10 - Essential (primary) hypertension (6) Hyperlipidemia Status: Chronic Qualifiers: Hyperlipidemia type: mixed hyperlipidemia Qualified Codes: E78.2 - Mixed hyperlipidemia Clinical Quality Measures DVT/VTE Risk/Contraindication: Risk Factor Score Per Nursin RFS Level Per Nursing on Admit: 4+=Very High JUAREZ MACK DO February 15, 2019 14:22
--- NOTE | 2019-02-15 15:22 | NUR ---
CM/SS, respond to consult. Post op, knee replacement. Discussed post hospital needs with patient and spouse and will coordinate services as appropriate with their preferred agencies through [facility]: HHC: Referral initiated with [facility], faxed Dr. Perez Referral Form with orders. Will update as necessary regarding actual discharge date. DME: Patient will need FWW, informed physician order will be needed. Will process once received. Patient spouse will be at home with her for two weeks during her recuperation time. She is employed when well and it is assumed she will return to work when medically released to do so.
[2019-02-15] MEDS: CEFUROXIME INJECTION 750 MG in WATER (STERILE) FOR INJECTION 10 ML IV SCH ×2 (15:31→22:59)
[2019-02-15] MEDS: NS IV 1000 ML 1,000 ML IV SCH ×2 (15:32→20:09)
[2019-02-15] MEDS: SENNA W/DOCUSATE (SENOKOT S) TABLET PO SCH ×2 (15:33→20:11)
[2019-02-15] MEDS: ESTRADIOL 1 MG TAB (ESTRACE) PO SCH (20:10)
[2019-02-15] MEDS: amLODIPine 5 MG (NORVASC) TAB PO SCH (20:10)
[2019-02-15] MEDS: TRIAMTERENE/HCTZ 75-50 (MAXZIDE,DYAZIDE) TABLET PO SCH (20:11)
[2019-02-15] MEDS: ATORVASTATIN 20 MG (LIPITOR) TABLET PO SCH (20:11)
[2019-02-15] MEDS: PARoxetine 10 MG (PAXIL) TAB PO SCH (20:14)
[2019-02-15] MEDS ORDERED: NON-FORMULARY MEDICATION 1 EA EA (Estradiol (Estradiol Tablet) 0.5 MG) PO SCH (21:00)
[2019-02-15] MEDS ORDERED: NON-FORMULARY MEDICATION 1 EA EA (Triamterene/Hydrochlorothiazid (Triamterene-Hctz 37.5-25 PO SCH (21:00)
[2019-02-15] MEDS ORDERED: NON-FORMULARY MEDICATION 1 EA EA (Amlodipine Besylate 5 MG) PO SCH (21:00)
[2019-02-15] MEDS ORDERED: NON-FORMULARY MEDICATION 1 EA EA (Paroxetine HCl 30 MG) PO SCH (21:00)
[2019-02-15] MEDS: oxyCODONE/APAP 5/325MG (PERCOCET 5) TABLET PO PRN (21:07)
[2019-02-16 00:28] VITALS: BP 128/63
[2019-02-16 03:52] VITALS: BP 146/75
[2019-02-16] MEDS: MULTIVIT W/MINERALS TAB (THERAGRAN M) PO SCH (04:50)
[2019-02-16] MEDS: oxyCODONE/APAP 5/325MG (PERCOCET 5) TABLET PO PRN ×4 (04:51→18:59)
[2019-02-16] MEDS: NS IV 1000 ML 1,000 ML IV SCH ×2 (04:57→16:05)
[2019-02-16 06:27] LABS: BASOPHILS % (AUTO) 0 % (0-10); EOSINOPHILS % (AUTO) 0 % (0-10); HEMATOCRIT 36 % (35-52); LYMPHOCYTES # (AUTO) 1.8 X 10^3 (1.0-4.0); LYMPHOCYTES % (AUTO) 13 % (12-44); MEAN CORPUSCULAR HEMOGLOBIN 30 PG (25-34); MEAN CORPUSCULAR HGB CONC 33 G/DL (32-36); MEAN CORPUSCULAR VOLUME 91 FL (80-99); MEAN PLATELET VOLUME 9.4 FL (7.4-10.4); MONOCYTES # (AUTO) 1.6 X 10^3 (0.0-1.0); MONOCYTES % (AUTO) 11 % (0-12); NEUTROPHILS # (AUTO) 10.5 X 10^3 (1.8-7.8); NEUTROPHILS % (AUTO) 76 % (42-75); PLATELET COUNT 220 10^3/uL (130-400); WHITE BLOOD COUNT 13.9 10^3/uL (4.3-11.0)
[2019-02-16 06:56] LABS: ALANINE AMINOTRANSFERASE 42 U/L (0-55); ALBUMIN 3.8 GM/DL (3.2-4.5); ALKALINE PHOSPHATASE 83 U/L (40-136); BILIRUBIN,TOTAL 0.2 MG/DL (0.1-1.0); BUN/CREATININE RATIO 18; CALCIUM 8.3 MG/DL (8.5-10.1); CARBON DIOXIDE 26 MMOL/L (21-32); CHLORIDE 103 MMOL/L (98-107); CREATININE SERUM 0.79 MG/DL (0.60-1.30); GFR ESTIMATED > 60; GLUCOSE 284 MG/DL (70-105); SODIUM 136 MMOL/L (135-145); TOTAL PROTEIN 6.4 GM/DL (6.4-8.2)
--- NOTE | 2019-02-16 07:38 | Pulmonary Consultation ---
History of Present Illness History of Present Illness Date of Consultation 02/16/19 07:33 Time Seen by Provider: 07:33 Date of Admission History of Present Illness 53yo with hx of tobacco use, ONELIA (follows with DR. Pugh), narcolepsy (Ritalin), presented for elective knee replacement. I am consulted for pulmonary management. Allergies and Home Medications Allergies Coded Allergies: No Known Drug Allergies (Unverified , 02/07/19) Home Medications Albuterol Sulfate 1 Puff Puff, 2 PUFF INH Q4H PRN for SHORTNESS OF BREATH, (Reported) Amlodipine Besylate 5 Mg Tablet, 5 MG PO HS, (Reported) Atorvastatin Calcium 20 Mg Tablet, 20 MG PO HS, (Reported) Estradiol 0.5 Mg Tablet, 0.5 MG PO HS, (Reported) Methylphenidate HCl 10 Mg Tablet, 10 MG PO DAILY, (Reported) Modafinil 200 Mg Tablet, 200 MG PO DAILY, (Reported) Oxycodone HCl/Acetaminophen 1 Each Tablet, 1 TAB PO Q4H Prescribed by: MARTINEZ SAUCEDO on 02/15/19 0732 Paroxetine HCl 30 Mg Tablet, 30 MG PO HS, (Reported) Tramadol HCl 50 Mg Tablet, 50 MG PO Q6H PRN for PAIN-MODERATE, (Reported) Triamterene/Hydrochlorothiazid 1 Each Capsule, 1 CAP PO HS, (Reported) LAST FILLED #30 12-27-18 Past Isrbcty-Mbeort-Teentp Hx Past Med/Social Hx: Reviewed Nursing Past Med/Soc Hx, Reviewed and Corrections made Patient Social History Alcohol Use: Occasionally Uses 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) Smoking Status: Current Everyday Smoker Type Used: Cigarettes Recent Foreign Travel: No Contact w/Someone Who Travel: No Recent Infectious Disease Expo: No Recent Hopitalizations: No Immunizations Up To Date Date of Influenza Vaccine: Jun 20, 2013 Seasonal Allergies Seasonal Allergies: Yes Past Medical History Surgeries: Yes (R shoulder, foot sx, neck fusion, breast lumpectomy, bilat knee scope) Breast, Hysterectomy, Orthopedic, Tubal Ligation Respiratory: Yes Asthma, Sleep Apnea Currently Using CPAP: Yes Currently Using BIPAP: No Cardiac: Yes High Cholesterol, Hypertension Neurological: Yes (narcolepsy) 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, Tubal Ligation Sexually Transmitted Disease: No HIV/AIDS: No Genitourinary: No Bladder Infection Gastrointestinal: Yes ( Hep C) Diverticulosis, Hepatitis Musculoskeletal: Yes (CHRONIC NECK PAIN ) Arthritis, Fibromyalgia, Chronic Back Pain Endocrine: No HEENT: Yes (glasses, permanent bridge) Cancer: No Psychosocial: No Integumentary: No Blood Disorders: No Adverse Reaction/Blood Tranf: No Family Medical History Alzheimer's disease 19 FATHER Arthritis 19 MOTHER G8 BROTHER G8 SISTER Diabetes mellitus 19 MOTHER G8 SISTER No Pertinent Family Hx Review of Systems Time Seen by Provider: 07:36 Sepsis Event Evaluation Height, Weight, BMI Height: 5'5.50" Weight: 224lbs. 0.0oz. 101.343198jf; 36.7 BMI Method:Stated Exam Exam Vital Signs Date Time Temp Pulse Resp B/P (MAP) Pulse Ox O2 Delivery O2 Flow Rate FiO2 02/16/19 03:52 96.8 91 18 146/75 (98) 93 Room Air 0.00 02/16/19 00:28 96.8 89 18 128/63 (84) 92 Room Air 0.00 02/15/19 21:00 Nasal Cannula 3.00 02/15/19 21:00 18 02/15/19 19:58 98.3 91 18 141/79 (99) 97 Nasal Cannula 2.00 02/15/19 18:44 16 02/15/19 16:05 98.9 93 20 143/83 (103) 94 Nasal Cannula 2.00 02/15/19 15:05 86 Room Air 02/15/19 12:15 16 02/15/19 12:00 94 Nasal Cannula 3.00 02/15/19 10:40 97.6 16 95 Nasal Cannula 3 02/15/19 10:30 16 94 OxyMask 3 02/15/19 10:20 16 94 3 02/15/19 10:10 16 94 3 02/15/19 10:00 16 95 OxyMask 3 02/15/19 09:50 16 96 OxyMask 10 02/15/19 09:40 16 96 OxyMask 10 02/15/19 09:30 16 96 OxyMask 10 02/15/19 09:20 16 94 OxyMask 10 02/15/19 09:08 98.8 16 97 OxyMask 10 I & O 02/16/19 07:00 Intake Total 3415 ml Balance 3415 ml Height & Weight Height: 5'5.50" Weight: 224lbs. 0.0oz. 101.590759pm; 36.7 BMI Method:Stated General Appearance: No Apparent Distress, WD/WN, Chronically ill, Obese, Other (lethargic) HEENT: PERRL/EOMI, Normal ENT Inspection, Pharynx Normal Neck: Full Range of Motion, Normal Inspection, Non Tender, Supple, Carotid Bruit Respiratory: Chest Non Tender, Lungs Clear, Normal Breath Sounds, No Accessory Muscle Use, No Respiratory Distress, Decreased Breath Sounds Cardiovascular: Regular Rate, Rhythm, No Edema, No Gallop, No JVD, No Murmur, Normal Peripheral Pulses Extremity: Normal Capillary Refill, Normal Inspection, Normal Range of Motion (decreased right leg), Non Tender, No Calf Tenderness, No Pedal Edema Neurologic/Psychiatric: Alert, Oriented x3, No Motor/Sensory Deficits, Normal Mood/Affect Skin: Normal Color, Warm/Dry Lymphatic: No Adenopathy Results Lab Laboratory Tests 02/16/19 05:30 02/16/19 06:10 Assessment/Plan Assessment/Plan Right knee osteoarthritis s/p replacement Tobacco dependance -Education -out pt workup -Will order Duonebs QID ONELIA with narcolepsy -Follows with Dr. Pugh -Home CPAP machine ADI JOHNSON DO February 16, 2019 07:38
[2019-02-16 08:00] VITALS: BP 136/71
[2019-02-16] MEDS ORDERED: ALPRAZolam 0.5 MG (XANAX) TAB PO PRN (08:00)
--- NOTE | 2019-02-16 08:01 | Progress Note-Standard ---
Standard Progress Note Progress Notes/Assess & Plan Date Seen by a Provider: February 16, 2019 Time Seen by a Provider: 08:00 Progress/Assessment & Plan No complaints Radiographs--HW well postioned without fx RLE--dressing intact. INtact DF and PF of toes and ankle. 2 plus DP pulse with brisk cap refill. sensation intact throughout s/p RTKA mobilize as able Final Diagnosis c/o anxiety Vital Signs Date Time Temp Pulse Resp B/P (MAP) Pulse Ox O2 Delivery O2 Flow Rate FiO2 02/16/19 03:52 96.8 91 18 146/75 (98) 93 Room Air 0.00 02/16/19 00:28 96.8 89 18 128/63 (84) 92 Room Air 0.00 02/15/19 21:00 Nasal Cannula 3.00 02/15/19 21:00 18 02/15/19 19:58 98.3 91 18 141/79 (99) 97 Nasal Cannula 2.00 02/15/19 18:44 16 02/15/19 16:05 98.9 93 20 143/83 (103) 94 Nasal Cannula 2.00 02/15/19 15:05 86 Room Air 02/15/19 12:15 16 02/15/19 12:00 94 Nasal Cannula 3.00 02/15/19 10:40 97.6 16 95 Nasal Cannula 3 02/15/19 10:30 16 94 OxyMask 3 02/15/19 10:20 16 94 3 02/15/19 10:10 16 94 3 02/15/19 10:00 16 95 OxyMask 3 02/15/19 09:50 16 96 OxyMask 10 02/15/19 09:40 16 96 OxyMask 10 02/15/19 09:30 16 96 OxyMask 10 02/15/19 09:20 16 94 OxyMask 10 02/15/19 09:08 98.8 16 97 OxyMask 10 I & O 02/16/19 07:00 Intake Total 3415 ml Balance 3415 ml Laboratory Tests Test 02/16/19 05:30 02/16/19 05:48 02/16/19 06:10 Range/Units White Blood Count 13.9 H 4.3-11.0 10^3/uL Red Blood Count 3.97 L 4.35-5.85 10^6/uL Hemoglobin 12.0 11.5-16.0 G/DL Hematocrit 36 35-52 % Mean Corpuscular Volume 91 80-99 FL Mean Corpuscular Hemoglobin 30 25-34 PG Mean Corpuscular Hemoglobin Concent 33 32-36 G/DL Red Cell Distribution Width 13.0 10.0-14.5 % Platelet Count 220 130-400 10^3/uL Mean Platelet Volume 9.4 7.4-10.4 FL Neutrophils (%) (Auto) 76 H 42-75 % Lymphocytes (%) (Auto) 13 12-44 % Monocytes (%) (Auto) 11 0-12 % Eosinophils (%) (Auto) 0 0-10 % Basophils (%) (Auto) 0 0-10 % Neutrophils # (Auto) 10.5 H 1.8-7.8 X 10^3 Lymphocytes # (Auto) 1.8 1.0-4.0 X 10^3 Monocytes # (Auto) 1.6 H 0.0-1.0 X 10^3 Eosinophils # (Auto) 0.0 0.0-0.3 10^3/uL Basophils # (Auto) 0.0 0.0-0.1 10^3/uL Glucometer 301 H 70-110 MG/DL Sodium Level 136 135-145 MMOL/L Potassium Level 4.0 3.6-5.0 MMOL/L Chloride Level 103 98-107 MMOL/L Carbon Dioxide Level 26 21-32 MMOL/L Anion Gap 7 5-14 MMOL/L Blood Urea Nitrogen 14 7-18 MG/DL Creatinine 0.79 0.60-1.30 MG/DL Estimat Glomerular Filtration Rate > 60 BUN/Creatinine Ratio 18 Glucose Level 284 H 70-105 MG/DL Calcium Level 8.3 L 8.5-10.1 MG/DL Corrected Calcium 8.5 8.5-10.1 MG/DL Total Bilirubin 0.2 0.1-1.0 MG/DL Aspartate Amino Transf (AST/SGOT) 26 5-34 U/L Alanine Aminotransferase (ALT/SGPT) 42 0-55 U/L Alkaline Phosphatase 83 40-136 U/L Total Protein 6.4 6.4-8.2 GM/DL Albumin 3.8 3.2-4.5 GM/DL RLE--dressing intact NVI distally. no calf tenderness s/p RTKA PT/OT Xanax PRN for anxiety MARTINEZ SAUCEDO MD February 16, 2019 08:01
[2019-02-16] MEDS ORDERED: METHYLPHENIDATE 5 MG (RITALIN) TAB PO SCH (09:00)
--- NOTE | 2019-02-16 09:07 | Physical Therapy Daily Note ---
PT Daily Note-Current Subjective Patient in bed pre tx, agrees to PT, has pain of 6/10 in right knee. Patient states that her CPM is broken but it seems to work just fine this morning and was put on patient at the end of treatment, but flexion was decreased to 52 degrees due to knee stiffness. Appearance Patient in bed post tx with nurse call, phone, tray, all needs met, polar care and SCD's on. Mental Status Patient Orientation: Person, Place, Situation Attachments: SCD's, Polar Pack, IV Transfers Therapy Code Descriptions/Definitions Functional [place] Measure: 0=Not Assessed/NA 4=Minimal Assistance 1=Total Assistance 5=Supervision or Setup 2=Maximal Assistance 6=Modified [place] 3=Moderate Assistance 7=Complete [place] Therapy Quality Codes: 6 Independent with activity with or without an assistive device 5 Patient requires set up or clean up by helper. Patient completes activity by themselves 4 Supervision or touching assist (CGA). [place] provide cues , steadying assist 3 The helper provides less than half the effort to complete the activity 2 The helper provides more than half the effort to complete the activity 1 Dependent. The helper does all the effort to complete an activity 7 Patient refused to complete or attempt activity 9 The patient did not perform the activity before the current illness or injury 88 Not attempted due to Medical conditions or safety concerns Transfers (B, C, W/C) (FIM): 5 Scootin Rollin Supine to/from Sit: 5 Sit to/from Stand: 5 Bed to/from Chair: 5 Occasional cues for hand placement and safety. Weight Bearing Right Lower Extremity: Right Weight Bearing/Tolerated Gait Training Gait (FIM): 5 Distance: 175' Gait Level of Assist: 5 Gait Assistive Device: FWW Slow ambulation, antalgic, decreased right knee flexion, no LOB or unsteadiness. Exercises Supine Ex: Ankle pumps, Quad Set, Heel Slides, Short Arc Quads, Straight leg raise Supine Reps: 10 Treatments bed mobility and transfers, total knee exercises, CPM donned, ambulation Assessment Current Status: Fair Progress improved ambulation, stiff knee PT Short Term Goals Short Term Goals Time Frame: Feb 22, 2019 Transfers (B,C,W/C) (FIM): 5 Gait (FIM): 5 Gait Distance Comment: 150' Gait Level of Assist: 5 Gait Assistive Device: FWW PT Plan Problem List Problem List: Activity Tolerance, Functional Strength, Safety, Balance, Gait, Transfer, Bed Mobility, ROM Treatment/Plan Treatment Plan: Continue Plan of Care Treatment Plan: Bed Mobility, Education, Functional Activity Luis, Functional Strength, Gait, Safety, Therapeutic Exercise, Transfers Treatment Duration: Feb 22, 2019 Frequency: 11 times per week Estimated Hrs Per Day: .25 hour per day (15-30') Patient and/or Family Agrees t: Yes Safety Risks/Education Patient Education: Gait Training, Transfer Techniques, Correct Positioning, Safety Issues Teaching Recipient: Patient Teaching Methods: Demonstration, Discussion Response to Teaching: Reinforcement Needed Time/GCodes Time In: 0834 Time Out: 0902 Total Billed Treatment Time: 28 Total Billed Treatment 1 visit GT 15' EX 13' ITZ BLISS PT February 16, 2019 09:07
[2019-02-16] MEDS: SENNA W/DOCUSATE (SENOKOT S) TABLET PO SCH ×2 (09:30→20:29)
[2019-02-16] MEDS: LORATADINE (CLARITIN) 10 MG TAB PO SCH (09:30)
[2019-02-16] MEDS: ASPIRIN E.C. 81 MG (ECOTRIN) TAB PO SCH (09:30)
[2019-02-16] MEDS: ENOXAPARIN 30 MG/0.3 ML (LOVENOX) SYR SC SCH ×2 (09:31→20:28)
--- NOTE | 2019-02-16 10:11 | Progress Note-Hospitalist ---
Subjective HPI/CC On Admission Date Seen by Provider: February 16, 2019 Time Seen by Provider: 09:00 Chief complaint: S/P right knee arthroplasty uncomplicated by Dr. Perez. HPI: This is a clinic Pt of Dr. Cowan and Dr. Pugh who has a PMH of current smoking with ONELIA maintained on CPAP at night with severe narcolepsy maintained on Ritalin who presents after an uncomplicated knee replacement. Her is at the bedside. The interview is limited due to her frequent sleeping episodes due to narcolepsy and her is requesting the Ritalin to be restarted to prevent other issues with respiratory compromise due to the narcolepsy. At this current time pt just completed physical therapy to the nurses station and back and denies any significant pain. I have consulted Dr. Mejia for respiratory management due to high risk of CO2 narcosis and narcolepsy related issues. Subjective/Events-last exam Blood sugars are elevated and doesn't have a hx of DM so will initiate sliding scale with accu cheks and check hgb A1C Did not sleep well last night Narcolepsy is precluding a fast recovery No BM yet Urinating well Pain is very severe on the CPM machine Nebulizer treatments are ordered Wore her CPAP machine for most of the night last night Reviewed labs and meds Review of Systems General: Fatigue Pulmonary: Cough Musculoskeletal: leg pain Objective Exam Vital Signs Vital Signs Date Time Temp Pulse Resp B/P (MAP) Pulse Ox O2 Delivery O2 Flow Rate FiO2 02/16/19 19:58 99.0 95 20 133/79 (97) 92 Room Air 02/16/19 09:00 3.00 Capillary Refill : Less Than 3 Seconds General Appearance: No Apparent Distress, WD/WN, Chronically ill, Obese, Other (lethargic) HEENT: PERRL/EOMI, Normal ENT Inspection, Pharynx Normal Neck: Full Range of Motion, Normal Inspection, Non Tender, Supple, Carotid Bruit Respiratory: Chest Non Tender, Lungs Clear, Normal Breath Sounds, No Accessory Muscle Use, No Respiratory Distress, Decreased Breath Sounds Cardiovascular: Regular Rate, Rhythm, No Edema, No Gallop, No JVD, No Murmur, Normal Peripheral Pulses Gastrointestinal: Normal Bowel Sounds, No Organomegaly, No Pulsatile Mass, Non Tender, Soft Back: Normal Inspection, No CVA Tenderness, No Vertebral Tenderness Extremity: Normal Capillary Refill, Normal Inspection, Normal Range of Motion (decreased right leg), Non Tender, No Calf Tenderness, No Pedal Edema Neurologic/Psychiatric: Alert, Oriented x3, No Motor/Sensory Deficits, Normal Mood/Affect Skin: Normal Color, Warm/Dry Lymphatic: No Adenopathy Results/Procedures Lab Laboratory Tests 02/16/19 05:30 02/16/19 06:10 Patient resulted labs reviewed. Assessment/Plan Assessment and Plan Assess & Plan/Chief Complaint Assessment: s/p right total knee replacement uncomplicated by Dr Perez POD # 1 Severe narcolepsy at high risk for respiratory insufficiency due to anesthesia and ONELIA and pain meds Smoker ONELIA on CPAP New onset DM? Plan: Consult Dr Mejia in case she experiences CO2 narcosis Monitor labs daily Home meds Ritalin for narcolepsy ONELIA use SSI Diagnosis/Problems Diagnosis/Problems (1) Osteoarthritis of right knee Status: Acute Qualifiers: Osteoarthritis type: primary Qualified Codes: M17.11 - Unilateral primary osteoarthritis, right knee (2) Narcolepsy Status: Chronic Qualifiers: Narcolepsy type: due to underlying condition without cataplexy Qualified Codes: G47.429 - Narcolepsy in conditions classified elsewhere without cataplexy (3) ONELIA on CPAP Status: Chronic (4) Smoker Status: Chronic (5) Hypertension Status: Chronic Qualifiers: Hypertension type: essential hypertension Qualified Codes: I10 - Essential (primary) hypertension (6) Hyperlipidemia Status: Chronic Qualifiers: Hyperlipidemia type: mixed hyperlipidemia Qualified Codes: E78.2 - Mixed hyperlipidemia (7) Hyperglycemia Status: Acute (8) Leukocytosis Status: Acute Qualifiers: Leukocytosis type: leukemoid reaction Qualified Codes: D72.823 - Leukemoid reaction Clinical Quality Measures DVT/VTE Risk/Contraindication: Risk Factor Score Per Nursin RFS Level Per Nursing on Admit: 4+=Very High JUAREZ MACK DO February 16, 2019 10:11
[2019-02-16] MEDS: RT-ALBUTEROL/IPRATROPIUM 3 ML (DUONEB) VIAL INH SCH ×3 (11:23→19:11)
[2019-02-16 12:00] VITALS: BP 142/78
--- NOTE | 2019-02-16 12:12 | NUR ---
IRF Evaluation Order received to evaluate patient for the ARU. Chart reviewed and it appears patient is ambulating (175ft, FWW) and transferring with supervision. According to SW, patient plans to return home with assistance provided by her spouse. Thank you for this referral.
[2019-02-16] MEDS ORDERED: oxyCODONE/APAP 5/325MG (PERCOCET 5) TABLET PO ONE (12:30)
--- NOTE | 2019-02-16 13:21 | Anesthesia-General Post-Op ---
General Patient Condition Mental Status/LOC: Same as Preop Cardiovascular: Satisfactory Nausea/Vomiting: Absent Respiratory: Satisfactory Pain: Controlled Complications: Absent Post Op Complications Complications None Follow Up Care/Instructions Patient Instructions None needed. Anesthesia/Patient Condition Patient Condition Patient is doing well, no complaints, stable vital signs, no apparent adverse anesthesia problems. No complications reported per nursing. SAVI BARBA CRNA February 16, 2019 13:21
[2019-02-16] MEDS: METHYLPHENIDATE 5 MG (RITALIN) TAB PO SCH (14:16)
--- NOTE | 2019-02-16 14:20 | NUR ---
CM/DUSTY. FWW ordered through [facility], confirmed receipt. Agency understands to deliver to patient room prior to discharge.
[2019-02-16] MEDS: inSUlin ASPART (NovoLOG) 1 UNIT/0.01 ML (CHARGE PER UNIT) SC SCH ×3 (14:23→22:10)
--- NOTE | 2019-02-16 14:41 | Physical Therapy Daily Note ---
PT Daily Note-Current Subjective Patient coming back from bathroom with OT and going to recliner. Patient has 8/10 pain in right knee. Nurse is aware of pain. Appearance Patient in recliner post tx with nurse call, phone, tray, all needs met. Has polar care on, legs elevated. Mental Status Patient Orientation: Person, Place, Situation Attachments: SCD's, Polar Pack, IV Transfers Therapy Code Descriptions/Definitions Functional [place] Measure: 0=Not Assessed/NA 4=Minimal Assistance 1=Total Assistance 5=Supervision or Setup 2=Maximal Assistance 6=Modified [place] 3=Moderate Assistance 7=Complete [place] Therapy Quality Codes: 6 Independent with activity with or without an assistive device 5 Patient requires set up or clean up by helper. Patient completes activity by themselves 4 Supervision or touching assist (CGA). [place] provide cues , steadying assist 3 The helper provides less than half the effort to complete the activity 2 The helper provides more than half the effort to complete the activity 1 Dependent. The helper does all the effort to complete an activity 7 Patient refused to complete or attempt activity 9 The patient did not perform the activity before the current illness or injury 88 Not attempted due to Medical conditions or safety concerns Transfers (B, C, W/C) (FIM): 5 Sit to/from Stand: 5 Bed to/from Chair: 5 Weight Bearing Right Lower Extremity: Right Weight Bearing/Tolerated Gait Training Gait (FIM): 5 Distance: 150' Gait Level of Assist: 5 Gait Persons Needed: 1 Gait Assistive Device: FWW Slow, antalgic Exercises Supine Ex: Quad Set, Heel Slides, Straight leg raise Supine Reps: 15 (done in recliner with legs elevated) Seated Therapy Exercises: Ankle pumps, Long arc quads Seated Reps: 15 Treatments LE exercise, ambulation Assessment Current Status: Fair Progress Patient is making fair progress but displays strange behavior, manic, impulsive, agitated. PT Short Term Goals Short Term Goals Time Frame: Feb 22, 2019 Transfers (B,C,W/C) (FIM): 5 Gait (FIM): 5 Gait Distance Comment: 150' Gait Level of Assist: 5 Gait Assistive Device: FWW PT Plan Problem List Problem List: Activity Tolerance, Functional Strength, Safety, Balance, Gait, Transfer, Bed Mobility, ROM Treatment/Plan Treatment Plan: Continue Plan of Care Treatment Plan: Bed Mobility, Education, Functional Activity Luis, Functional Strength, Gait, Safety, Therapeutic Exercise, Transfers Treatment Duration: Feb 22, 2019 Frequency: 11 times per week Estimated Hrs Per Day: .25 hour per day (15-30') Patient and/or Family Agrees t: Yes Safety Risks/Education Patient Education: Gait Training, Transfer Techniques, Correct Positioning, Safety Issues Teaching Recipient: Patient Teaching Methods: Demonstration, Discussion Response to Teaching: Reinforcement Needed Time/GCodes Time In: 1410 Time Out: 1435 Total Billed Treatment Time: 25 Total Billed Treatment 1 visit GT 15' EX 10' ITZ BLISS PT February 16, 2019 14:41
--- NOTE | 2019-02-16 15:28 | Occupational Therapy Eval ---
OT Evaluation-General/PLF Medical Diagnosis Admission Date February 15, 2019 at 05:59 Medical Diagnosis: right TKA Onset Date: February 15, 2019 Therapy Diagnosis Therapy Diagnosis: Weakness Height/Weight Height (Feet): 5 Height (Inches): 5.50 Weight (Pounds): 224 Weight (Ounces): 0.0 Precautions Precautions/Isolations: Fall Prevention, Standard Precautions Safety Interventions: None Weight Bear Status Weight Bearing Restriction: Weight Bearing/Tolerated Referral Physician: Charles aLra Referral Reason: Activity Tolerance, Self Care, Evaluation/Treatment, Strengthening/ROM Medical History Additional Medical History Shoulder arthroscopy, narcolepsy, hep c, hyperlipidemia, right ankle surgery, hysterectomy Current History Pt. had elective knee surgery. Reviewed History: Yes Social History Home: Single Level Current Living Status: Spouse Entry Into Home: Stairs With Railing Steps Into Home: 3 ADL-Prior Level of Function Therapy Code Descriptions/Definitions Functional [place] Measure: 0=Not Assessed/NA 4=Minimal Assistance 1=Total Assistance 5=Supervision or Setup 2=Maximal Assistance 6=Modified [place] 3=Moderate Assistance 7=Complete [place] Therapy Quality Codes: 6 Independent with activity with or without an assistive device 5 Patient requires set up or clean up by helper. Patient completes activity by themselves 4 Supervision or touching assist (CGA). [place] provide cues , steadying assist 3 The helper provides less than half the effort to complete the activity 2 The helper provides more than half the effort to complete the activity 1 Dependent. The helper does all the effort to complete an activity 7 Patient refused to complete or attempt activity 9 The patient did not perform the activity before the current illness or injury 88 Not attempted due to Medical conditions or safety concerns Functional Abilities and Goals: Independent: Patient completed the activities by him/herself, with or without an assistive device, with no assistance from a helper. Needed Some Help: Patient needed partial assistance from another person to complete activities. Dependent: A helper completed the activities for the patient. Unknown: Not Applicable: ADL PLOF Comments Pt. states that she was independent with daily tasks. Self Care: Independent Functional Cognition: Unknown DME/Equipment: Bath Chair, Shower DME/Equipment Comments Pt. reports that she will need a walker. OT Current Status Subjective Pt. very groggy when OT entered room. In and out of sleep. Reports pain but does not state pain in left knee but does not state pain level. Appearance Pt. in bed. Pt. has c-pap machine on. Pt. is groggy and states multiple times that she just needs sleep. Pt. does become awake somewhat impulsively and states that she wants to sit up. Mental Status/Objective Patient Orientation: Unable to Assess ADL-Treatment Therapy Code Descriptions/Definitions Functional [place] Measure: 0=Not Assessed/NA 4=Minimal Assistance 1=Total Assistance 5=Supervision or Setup 2=Maximal Assistance 6=Modified [place] 3=Moderate Assistance 7=Complete [place] Therapy Quality Codes: 6 Independent with activity with or without an assistive device 5 Patient requires set up or clean up by helper. Patient completes activity by themselves 4 Supervision or touching assist (CGA). [place] provide cues , steadying assist 3 The helper provides less than half the effort to complete the activity 2 The helper provides more than half the effort to complete the activity 1 Dependent. The helper does all the effort to complete an activity 7 Patient refused to complete or attempt activity 9 The patient did not perform the activity before the current illness or injury 88 Not attempted due to Medical conditions or safety concerns Toileting (FIM): 4 Transfers (B, C, W/C) (FIM): 4 Toilet/Commode Transfer (FIM): 4 Other Treatments OT explains to pt. purpose of treatment. Pt. does not seem to understand at first, as she is in and out of sleep. Pt. does abruptly state that she wants to sit up. OT begins to assist pt. with right LE. Multiple attempts made and pt. able to come to side of bed with mod assist. Educated to wait for gait belt, as pt. wants to stand immediately, stating that she has to use the bathroom. Stands with gait belt and bed raised with min assist needed. Ambulates to bathroom with cues for safety. Transfers to toilet with CGA and urinates. Pt. able to cleanse self with no difficulty. Stands again to ambulate out of bathroom. PT comes in at this point to continue working with PT. Education OT Patient Education: Correct positioning, Modified ADL techniques, Progress toward Goal/Update tx plan, Purpose of tx/functional activities, Reviewed precautions, Rehab process, Transfer techniques Teaching Recipient: Patient Teaching Methods: Demonstration, Discussion Response to Teaching: Verbalize Understanding, Return Demonstration OT Short Term Goals Short Term Goals Transfers (B,C,W/C) (FIM): 5 1=Demonstrate adherence to instructed precautions during ADL tasks. 2=Patient will verbalize/demonstrate understanding of assistive devices/modifications for ADL. 3=Patient will improve strength/tolerance for activity to enable patient to perform ADL's. OT Clinical Research Nurse Goals Clinical Research Nurse Goals Time Frame: Feb 23, 2019 Eating (FIM): 6 Grooming(FIM): 6 Bathing(FIM): 6 Upper Body Dressing(FIM): 6 Lower Body Dressing(FIM): 6 Toileting(FIM): 6 Transfers (B,C,W/C) (FIM): 6 Toilet/Commode Transfer(FIM): 6 Shower Transfer(FIM): 5 Additional Goals: 1-Demonstrate ADL Tasks, 2-Verbalize Understanding, 3-Impr oveStrength/Luis 1=Demonstrate adherence to instructed precautions during ADL tasks. 2=Patient will verbalize/demonstrate understanding of assistive devices/modifications for ADL. 3=Patient will improve strength/tolerance for activity to enable patient to perform ADL's. OT Education/Plan Problem List/Assessment Assessment: Decreased Activ Tolerance, Dependent Transfers, Impaired Bed Mobility, Impaired Funct Balance, Impaired I ADL's, Impaired Self-Care Skills Discharge Recommendations Plan/Recommendations: Continue POC Therapy D/C Recommendations: Home w/ Family Support, Occupational Therapy Home Care Equpiment Recommendations-D/C: Hip Kit Comment Pt. will need walker. Target Placement Pt. reports that her spouse will be home with her for two weeks, but that after that, she will be alone. Pt. does not explain this. Treatment Plan/Plan of Care Treatment,Training & Education: Yes Patient would benefit from OT for education, treatment and training to promote independence in ADL's, mobility, safety and/or upper extremity function for ADL's. Plan of Care: ADL Retraining, Functional Mobility, UE Funct Exercise/Act Treatment Duration: Feb 23, 2019 Frequency: 5 times per week Estimated Hrs Per Day: .5 hour per day Agreement: Yes Rehab Potential: Fair Time/GCodes Start Time: 13:55 Stop Time: 14:10 Total Time Billed (hr/min): 15 Billed Treatment Time 1, KASIA CONLEY OT February 16, 2019 15:28
[2019-02-16 16:00] VITALS: BP 128/70
[2019-02-16] MEDS ORDERED: ALPRAZolam 1 MG (XANAX) TAB PO PRN (18:30)
[2019-02-16 19:58] VITALS: BP 133/79
[2019-02-16] MEDS: ZOLPIDEM 5 MG (AMBIEN) TAB PO SCH (20:29)
[2019-02-16] MEDS: PARoxetine 10 MG (PAXIL) TAB PO SCH (20:29)
[2019-02-16] MEDS: TRIAMTERENE/HCTZ 75-50 (MAXZIDE,DYAZIDE) TABLET PO SCH (20:29)
[2019-02-16] MEDS: amLODIPine 5 MG (NORVASC) TAB PO SCH (20:29)
[2019-02-16] MEDS: ATORVASTATIN 20 MG (LIPITOR) TABLET PO SCH (20:29)
[2019-02-16] MEDS: ESTRADIOL 1 MG TAB (ESTRACE) PO SCH (20:29)
[2019-02-16] MEDS: MONTELUKAST 10 MG (SINGULAIR) TAB PO SCH (22:10)
[2019-02-17] VITALS (7 sets, daily range): BP systolic 117–156; BP diastolic 59–90
[2019-02-17] MEDS: NS IV 1000 ML 1,000 ML IV SCH (04:49)
[2019-02-17] MEDS: oxyCODONE/APAP 5/325MG (PERCOCET 5) TABLET PO PRN (04:49)
[2019-02-17] MEDS: MULTIVIT W/MINERALS TAB (THERAGRAN M) PO SCH (04:49)
[2019-02-17] MEDS: inSUlin ASPART (NovoLOG) 1 UNIT/0.01 ML (CHARGE PER UNIT) SC SCH ×4 (04:53→21:45)
--- NOTE | 2019-02-17 06:52 | DISCHARGE SUMMARY ---
DATE OF SERVICE: DIAGNOSES: 1. Right knee primary osteoarthritis. 2. Hepatitis C. 3. Hyperlipidemia. 4. Narcolepsy. PROCEDURE: Right total knee arthroplasty. SUMMARY: The patient is a 53-year-old female who was admitted the day of right total knee arthroplasty, which she underwent without complications. Postoperatively, she did very well. At the time of discharge, her wound was clean and dry. She had no calf tenderness. Negative Homans sign. She is tolerating her diet well and tolerating pain with oral pain medications. CONDITION AT DISCHARGE: Good. DISCHARGE DIET: Regular. FOLLOWUP: Followup is in three weeks. Home physical therapy has been arranged. ACTIVITIES: Weightbearing as tolerated with a walker as needed for pain. DISCHARGE MEDICATIONS: Home medications, aspirin as well as Percocet as needed for pain. Job ID: [id number] DocumentID: [id number] Dictated Date: 02/16/2019 18:13:53 Tip Tester Date: 02/17/2019 06:52:36 Dictated By: MARTINEZ SAUCEDO MD
[2019-02-17 06:53] LABS: BASOPHILS % (AUTO) 0 % (0-10); EOSINOPHILS # (AUTO) 0.1 10^3/uL (0.0-0.3); EOSINOPHILS % (AUTO) 1 % (0-10); HEMATOCRIT 35 % (35-52); HEMOGLOBIN 11.9 G/DL (11.5-16.0); LYMPHOCYTES # (AUTO) 1.8 X 10^3 (1.0-4.0); LYMPHOCYTES % (AUTO) 17 % (12-44); MEAN CORPUSCULAR HEMOGLOBIN 30 PG (25-34); MEAN CORPUSCULAR HGB CONC 34 G/DL (32-36); MEAN CORPUSCULAR VOLUME 87 FL (80-99); MEAN PLATELET VOLUME 9.6 FL (7.4-10.4); MONOCYTES # (AUTO) 1.6 X 10^3 (0.0-1.0); MONOCYTES % (AUTO) 15 % (0-12); NEUTROPHILS # (AUTO) 7.3 X 10^3 (1.8-7.8); NEUTROPHILS % (AUTO) 68 % (42-75); PLATELET COUNT 184 10^3/uL (130-400); WHITE BLOOD COUNT 10.8 10^3/uL (4.3-11.0)
--- NOTE | 2019-02-17 06:59 | Progress Note-Standard ---
Standard Progress Note Progress Notes/Assess & Plan Date Seen by a Provider: February 17, 2019 Time Seen by a Provider: 06:58 Progress/Assessment & Plan No complaints Radiographs--HW well postioned without fx RLE--dressing intact. INtact DF and PF of toes and ankle. 2 plus DP pulse with brisk cap refill. sensation intact throughout s/p RTKA mobilize as able Final Diagnosis patient reports a "rough" night Vital Signs Date Time Temp Pulse Resp B/P (MAP) Pulse Ox O2 Delivery O2 Flow Rate FiO2 02/17/19 04:00 98.1 89 16 138/82 (100) 92 Room Air 02/17/19 00:54 97.7 98 20 133/88 (103) 90 Room Air 02/16/19 21:00 Room Air 02/16/19 21:00 16 02/16/19 19:58 99.0 95 20 133/79 (97) 92 Room Air 02/16/19 19:11 90 Room Air 02/16/19 16:00 98.8 106 18 128/70 (89) 94 Room Air 02/16/19 12:00 97.8 90 18 142/78 (99) 96 Room Air 02/16/19 11:24 93 Room Air 02/16/19 09:00 Nasal Cannula 3.00 02/16/19 08:00 97.5 95 18 136/71 (92) 95 Nasal Cannula 2.00 02/16/19 07:00 18 I & O 02/17/19 07:00 Intake Total 2420 ml Balance 2420 ml Laboratory Tests Test 02/16/19 16:05 02/16/19 22:03 02/17/19 04:53 02/17/19 06:31 Range/Units Glucometer 166 H 144 H 157 H 70-110 MG/DL White Blood Count 10.8 4.3-11.0 10^3/uL Red Blood Count 3.98 L 4.35-5.85 10^6/uL Hemoglobin 11.9 11.5-16.0 G/DL Hematocrit 35 35-52 % Mean Corpuscular Volume 87 80-99 FL Mean Corpuscular Hemoglobin 30 25-34 PG Mean Corpuscular Hemoglobin Concent 34 32-36 G/DL Red Cell Distribution Width 13.0 10.0-14.5 % Platelet Count 184 130-400 10^3/uL Mean Platelet Volume 9.6 7.4-10.4 FL Neutrophils (%) (Auto) 68 42-75 % Lymphocytes (%) (Auto) 17 12-44 % Monocytes (%) (Auto) 15 H 0-12 % Eosinophils (%) (Auto) 1 0-10 % Basophils (%) (Auto) 0 0-10 % Neutrophils # (Auto) 7.3 1.8-7.8 X 10^3 Lymphocytes # (Auto) 1.8 1.0-4.0 X 10^3 Monocytes # (Auto) 1.6 H 0.0-1.0 X 10^3 Eosinophils # (Auto) 0.1 0.0-0.3 10^3/uL Basophils # (Auto) 0.0 0.0-0.1 10^3/uL Test 02/17/19 06:34 Range/Units RLE--incision clean and dry. No calf tenderness Neg SLR s/p RTKA DC [employer] plan for DC tomorrow MARTINEZ SAUCEDO MD February 17, 2019 06:59
[2019-02-17] MEDS ORDERED: morphine INJ 4 MG/ML 1 ML (VIAL/SYRINGE) IVP PRN (07:00)
[2019-02-17 07:13] LABS: ALANINE AMINOTRANSFERASE 37 U/L (0-55); ALBUMIN 3.7 GM/DL (3.2-4.5); ALKALINE PHOSPHATASE 80 U/L (40-136); BILIRUBIN,TOTAL 0.6 MG/DL (0.1-1.0); BUN/CREATININE RATIO 11; CALCIUM 8.7 MG/DL (8.5-10.1); CARBON DIOXIDE 27 MMOL/L (21-32); CHLORIDE 99 MMOL/L (98-107); CREATININE SERUM 0.61 MG/DL (0.60-1.30); GFR ESTIMATED > 60; GLUCOSE 142 MG/DL (70-105); POTASSIUM 3.7 MMOL/L (3.6-5.0); SODIUM 134 MMOL/L (135-145); TOTAL PROTEIN 6.4 GM/DL (6.4-8.2)
[2019-02-17] MEDS: RT-ALBUTEROL/IPRATROPIUM 3 ML (DUONEB) VIAL INH SCH ×4 (07:19→19:07)
--- NOTE | 2019-02-17 07:19 | NUR ---
SPO2 88% ON ROOM AIR @ REST. REPLACED O2 @ 2 LPM. SPO2 INCREASED TO 91%.
--- NOTE | 2019-02-17 07:49 | Pulmonary Progress Note ---
Subjective Time Seen by a Provider: 07:49 Subjective/Events-last exam No complications noted. Sepsis Event Evaluation Height, Weight, BMI Height: 5'5.50" Weight: 224lbs. 0.0oz. 101.309948er; 36.7 BMI Method:Stated Exam Exam Vital Signs Date Time Temp Pulse Resp B/P (MAP) Pulse Ox O2 Delivery O2 Flow Rate FiO2 02/17/19 07:19 88 Room Air 02/17/19 04:00 98.1 89 16 138/82 (100) 92 Room Air 02/17/19 00:54 97.7 98 20 133/88 (103) 90 Room Air 02/16/19 21:00 Room Air 02/16/19 21:00 16 02/16/19 19:58 99.0 95 20 133/79 (97) 92 Room Air 02/16/19 19:11 90 Room Air 02/16/19 16:00 98.8 106 18 128/70 (89) 94 Room Air 02/16/19 12:00 97.8 90 18 142/78 (99) 96 Room Air 02/16/19 11:24 93 Room Air 02/16/19 09:00 Nasal Cannula 3.00 02/16/19 08:00 97.5 95 18 136/71 (92) 95 Nasal Cannula 2.00 I & O 02/17/19 07:00 Intake Total 2420 ml Balance 2420 ml Height & Weight Height: 5'5.50" Weight: 224lbs. 0.0oz. 101.139217ay; 36.7 BMI Method:Stated General Appearance: No Apparent Distress, WD/WN, Chronically ill, Obese, Other (lethargic) HEENT: PERRL/EOMI, Normal ENT Inspection, Pharynx Normal Neck: Full Range of Motion, Normal Inspection, Non Tender, Supple, Carotid Bruit Respiratory: Chest Non Tender, Lungs Clear, Normal Breath Sounds, No Accessory Muscle Use, No Respiratory Distress, Decreased Breath Sounds Cardiovascular: Regular Rate, Rhythm, No Edema, No Gallop, No JVD, No Murmur, Normal Peripheral Pulses Extremity: Normal Capillary Refill, Normal Inspection, Normal Range of Motion (decreased right leg), Non Tender, No Calf Tenderness, No Pedal Edema Neurologic/Psychiatric: Alert, Oriented x3, No Motor/Sensory Deficits, Normal Mood/Affect Skin: Normal Color, Warm/Dry Lymphatic: No Adenopathy Results Lab Laboratory Tests 02/16/19 05:30 02/16/19 06:10 02/17/19 06:31 02/17/19 06:34 Assessment/Plan Assessment/Plan Right knee osteoarthritis s/p replacement Tobacco dependance -Education -out pt workup - [place] ONELIA with narcolepsy -Follows with Dr. Pugh -Home CPAP machine ADI JOHNSON DO February 17, 2019 07:49
[2019-02-17] MEDS: ENOXAPARIN 30 MG/0.3 ML (LOVENOX) SYR SC SCH ×2 (09:20→21:47)
[2019-02-17] MEDS: SENNA W/DOCUSATE (SENOKOT S) TABLET PO SCH ×4 (09:20→21:43)
[2019-02-17] MEDS: LORATADINE (CLARITIN) 10 MG TAB PO SCH (09:20)
[2019-02-17] MEDS: ASPIRIN E.C. 81 MG (ECOTRIN) TAB PO SCH (09:20)
[2019-02-17] MEDS: MODAFINIL 200 MG PO SCH (09:21)
--- NOTE | 2019-02-17 09:23 | Occupational Ther Daily Note ---
OT Current Status-Daily Note Subjective Pt seen in room, up in recliner, agreeable to OT. Pain behaviors observed with R knee movement but not rated or described. Appearance Very sleepy. Pt requested narcolepsy meds but nurse told her some of the sleepiness is from pain meds Mental Status/Objective Patient Orientation: Person, Place, Situation Therapy Code Descriptions/Definitions Functional [place] Measure: 0=Not Assessed/NA 4=Minimal Assistance 1=Total Assistance 5=Supervision or Setup 2=Maximal Assistance 6=Modified [place] 3=Moderate Assistance 7=Complete [place] Attachments: Polar Pack, Saline Lock ADL-Treatment Pt would like to shower later today when her brings her clean clothes. Very slow to move for transfer and walking to bathroom. Decreased safety awareness, re: waiting for gait belt. Sit to stand with CGA, walked to bathroom CGA, FWW. Pt educ hand and foot placement for transfer and for getting on and off toilet, using grab bars. Pt educ re: don't put walker out in front too far. Managed hygiene and clothing with SBA, toilet transfer CGA. Stood at sink SBA, FWW to wash hands. Walked back to recliner CGA, cues for hand placement to sit. Polar pack applied. Pt left up in recliner, all needs met, ordering breakfast. Pt took O2 off and needed cue to put it back on as she seemed unaware that she took it off. Nursing notified. Grooming (FIM): 5 (SBA) Toileting (FIM): 5 (SBA) Toilet/Commode Transfer (FIM): 4 Education OT Patient Education: Modified ADL techniques, Purpose of tx/functional activities, Safety issues, Transfer techniques Teaching Recipient: Patient Teaching Methods: Discussion Response to Teaching: Verbalize Understanding, Return Demonstration, Reinforcement Needed OT Short Term Goals Short Term Goals Transfers (B,C,W/C) (FIM): 5 1=Demonstrate adherence to instructed precautions during ADL tasks. 2=Patient will verbalize/demonstrate understanding of assistive devices/modifications for ADL. 3=Patient will improve strength/tolerance for activity to enable patient to perform ADL's. OT Nursing Home Goals Nursing Home Goals Time Frame: Feb 23, 2019 Eating (FIM): 6 Grooming(FIM): 6 Bathing(FIM): 6 Upper Body Dressing(FIM): 6 Lower Body Dressing(FIM): 6 Toileting(FIM): 6 Transfers (B,C,W/C) (FIM): 6 Toilet/Commode Transfer(FIM): 6 Shower Transfer(FIM): 5 Additional Goals: 1-Demonstrate ADL Tasks, 2-Verbalize Understanding, 3- ImproveStrength/Luis 1=Demonstrate adherence to instructed precautions during ADL tasks. 2=Patient will verbalize/demonstrate understanding of assistive devices/modifications for ADL. 3=Patient will improve strength/tolerance for activity to enable patient to perform ADL's. OT Education/Plan Discharge Recommendations Plan/Recommendations: Continue POC Treatment Plan/Plan of Care Patient would benefit from OT for education, treatment and training to promote independence in ADL's, mobility, safety and/or upper extremity function for ADL's. Plan of Care: ADL Retraining, Functional Mobility, UE Funct Exercise/Act Treatment Duration: Feb 23, 2019 Frequency: 5 times per week Estimated Hrs Per Day: .5 hour per day Agreement: Yes Rehab Potential: Fair Time/GCodes Start Time: 08:44 Stop Time: 09:15 Total Time Billed (hr/min): 31 Billed Treatment Time visit, 31 minutes MICHELLE Manriquez OT February 17, 2019 09:23
--- NOTE | 2019-02-17 10:26 | Physical Therapy Daily Note ---
PT Daily Note-Current Subjective Patient in recliner pre tx, agrees to PT, has 4/10 pain in right knee. Patient is very drowsy, impulsive. Appearance Patient in recliner post tx with nurse call, phone, tray, polar care on, family in the room, legs elevated. Mental Status Patient Orientation: Person, Place, Situation Attachments: Oxygen Transfers Therapy Code Descriptions/Definitions Functional [place] Measure: 0=Not Assessed/NA 4=Minimal Assistance 1=Total Assistance 5=Supervision or Setup 2=Maximal Assistance 6=Modified [place] 3=Moderate Assistance 7=Complete [place] Therapy Quality Codes: 6 Independent with activity with or without an assistive device 5 Patient requires set up or clean up by helper. Patient completes activity by themselves 4 Supervision or touching assist (CGA). [place] provide cues , steadying assist 3 The helper provides less than half the effort to complete the activity 2 The helper provides more than half the effort to complete the activity 1 Dependent. The helper does all the effort to complete an activity 7 Patient refused to complete or attempt activity 9 The patient did not perform the activity before the current illness or injury 88 Not attempted due to Medical conditions or safety concerns Transfers (B, C, W/C) (FIM): 4 Sit to/from Stand: 4 Bed to/from Chair: 5 Patient min assist for sit to stand from lower chairs. Weight Bearing Right Lower Extremity: Right Weight Bearing/Tolerated Gait Training Gait (FIM): 5 Distance: 150'x2 Gait Level of Assist: 5 Gait Persons Needed: 1 Gait Assistive Device: FWW Steady ambulation, slow, antalgic, decreased knee flexion on the right side. Patient needed a sitting rest break. She says she is just very tired because she had a rough night last night. Exercises Supine Ex: Quad Set, Straight leg raise Supine Reps: 15 (perfomred these in the recliner with legs elevated) Seated Therapy Exercises: Ankle pumps, Long arc quads, Hamstring Curls Seated Reps: 15 Treatments transfers, ambulation, total knee exercises. Assessment Current Status: Poor Progress Patient has trouble breathing, holds breath during activity, constant cues for purse lip breathing, had to take a seated rest break, poor poor ROM in right knee PT Short Term Goals Short Term Goals Time Frame: Feb 22, 2019 Transfers (B,C,W/C) (FIM): 5 Gait (FIM): 5 Gait Distance Comment: 150' Gait Level of Assist: 5 Gait Assistive Device: FWW PT Plan Problem List Problem List: Activity Tolerance, Functional Strength, Safety, Balance, Gait, Transfer, Bed Mobility, ROM Treatment/Plan Treatment Plan: Continue Plan of Care Treatment Plan: Bed Mobility, Education, Functional Activity Luis, Functional Strength, Gait, Safety, Therapeutic Exercise, Transfers Treatment Duration: Feb 22, 2019 Frequency: 11 times per week Estimated Hrs Per Day: .25 hour per day (15-30') Patient and/or Family Agrees t: Yes Safety Risks/Education Patient Education: Gait Training, Transfer Techniques, Correct Positioning, Safety Issues Teaching Recipient: Patient Teaching Methods: Demonstration, Discussion Response to Teaching: Reinforcement Needed Time/GCodes Time In: 0947 Time Out: 1016 Total Billed Treatment Time: 28 Total Billed Treatment 1 visit GT 20' EX 8' ITZ BLISS PT February 17, 2019 10:26
--- NOTE | 2019-02-17 10:45 | Progress Note-Hospitalist ---
Subjective HPI/CC On Admission Date Seen by Provider: February 17, 2019 Time Seen by Provider: 10:00 Chief complaint: S/P right knee arthroplasty uncomplicated by Dr. Perez. HPI: This is a clinic Pt of Dr. Cowan and Dr. Pugh who has a PMH of current smoking with ONELIA maintained on CPAP at night with severe narcolepsy maintained on Ritalin who presents after an uncomplicated knee replacement. Her is at the bedside. The interview is limited due to her frequent sleeping episodes due to narcolepsy and her is requesting the Ritalin to be restarted to prevent other issues with respiratory compromise due to the narcolepsy. At this current time pt just completed physical therapy to the nurses station and back and denies any significant pain. I have consulted Dr. Mejia for respiratory management due to high risk of CO2 narcosis and narcolepsy related issues. Subjective/Events-last exam Patient doing well today Discharge is planned for tomorrow Pain is well-controlled Constipation still remains Multiple bowel movements were given today Wearing 2 L of oxygen all the time now so we'll order that for discharge All home meds have been restarted New diagnosis of diabetes with hemoglobin A1c of 6.9 and that lab report will be sent to Dr. Cowan for close follow-up Review of Systems General: Fatigue Pulmonary: Dyspnea Musculoskeletal: leg pain Objective Exam Vital Signs Vital Signs Date Time Temp Pulse Resp B/P (MAP) Pulse Ox O2 Delivery O2 Flow Rate FiO2 02/17/19 11:26 94 Nasal Cannula 2.00 02/17/19 08:00 96.7 105 18 156/90 (112) Capillary Refill : Less Than 3 Seconds General Appearance: No Apparent Distress, WD/WN, Chronically ill, Obese, Other (lethargic) HEENT: PERRL/EOMI, Normal ENT Inspection, Pharynx Normal Neck: Full Range of Motion, Normal Inspection, Non Tender, Supple, Carotid Bruit Respiratory: Chest Non Tender, Lungs Clear, Normal Breath Sounds, No Accessory Muscle Use, No Respiratory Distress, Decreased Breath Sounds Cardiovascular: Regular Rate, Rhythm, No Edema, No Gallop, No JVD, No Murmur, Normal Peripheral Pulses Gastrointestinal: Normal Bowel Sounds, No Organomegaly, No Pulsatile Mass, Non Tender, Soft Back: Normal Inspection, No CVA Tenderness, No Vertebral Tenderness Extremity: Normal Capillary Refill, Normal Inspection, Normal Range of Motion (decreased right leg), Non Tender, No Calf Tenderness, No Pedal Edema Neurologic/Psychiatric: Alert, Oriented x3, No Motor/Sensory Deficits, Normal Mood/Affect Skin: Normal Color, Warm/Dry Lymphatic: No Adenopathy Results/Procedures Lab Laboratory Tests 02/17/19 06:31 02/17/19 06:34 Patient resulted labs reviewed. Assessment/Plan Assessment and Plan Assess & Plan/Chief Complaint Assessment: s/p right total knee replacement uncomplicated by Dr Perez POD # 2 Severe narcolepsy at high risk for respiratory insufficiency due to anesthesia and ONELIA and pain meds Smoker ONELIA on CPAP New onset DM Constipation Plan: Consult Dr Mejia in case she experiences CO2 narcosis Monitor labs daily Home meds Ritalin for narcolepsy ONELIA use SSI PCP Dr Cowan for new dx of DM BM regimen Diagnosis/Problems Diagnosis/Problems (1) Osteoarthritis of right knee Status: Acute Qualifiers: Osteoarthritis type: primary Qualified Codes: M17.11 - Unilateral primary osteoarthritis, right knee (2) Narcolepsy Status: Chronic Qualifiers: Narcolepsy type: due to underlying condition without cataplexy Qualified Codes: G47.429 - Narcolepsy in conditions classified elsewhere without cataplexy (3) ONELIA on CPAP Status: Chronic (4) Smoker Status: Chronic (5) Hypertension Status: Chronic Qualifiers: Hypertension type: essential hypertension Qualified Codes: I10 - Essential (primary) hypertension (6) Hyperlipidemia Status: Chronic Qualifiers: Hyperlipidemia type: mixed hyperlipidemia Qualified Codes: E78.2 - Mixed hyperlipidemia (7) Hyperglycemia Status: Acute (8) Leukocytosis Status: Acute Qualifiers: Leukocytosis type: leukemoid reaction Qualified Codes: D72.823 - Leukemoid reaction Clinical Quality Measures DVT/VTE Risk/Contraindication: Risk Factor Score Per Nursin RFS Level Per Nursing on Admit: 4+=Very High JUAREZ MACK DO February 17, 2019 10:45
[2019-02-17] MEDS ORDERED: LACTULOSE SYRUP 10GM/15ML (ENULOSE) 30ML UDC PO PRN (11:00)
[2019-02-17] MEDS: POLYETHYLENE GLYCOL 17 GM (MIRALAX) PACK PO SCH ×2 (13:27→21:45)
[2019-02-17] MEDS: METHYLPHENIDATE 5 MG (RITALIN) TAB PO SCH (13:30)
--- NOTE | 2019-02-17 14:07 | NUR ---
CM/SS. Respond to consult for new home O2, coordinated with patient preferred agency [facility]. Agency understands to deliver portable to patient room and to work directly with patient to arrange for home set up. FWW has been delivered and adjusted by therapist to patient height. Discharge anticipated for Wednesday.
--- NOTE | 2019-02-17 14:34 | Physical Therapy Daily Note ---
PT Daily Note-Current Subjective Patient in bed pre tx, agrees to PT, has 4/10 pain. Patient has to use the restroom and she does so with min assist from her to help get her pants up. Appearance Patient in bed post tx with nurse call, phone, tray, polar care on, all needs met. SCD's on. Mental Status Patient Orientation: Person, Place, Situation Attachments: Oxygen Transfers Therapy Code Descriptions/Definitions Functional [place] Measure: 0=Not Assessed/NA 4=Minimal Assistance 1=Total Assistance 5=Supervision or Setup 2=Maximal Assistance 6=Modified [place] 3=Moderate Assistance 7=Complete [place] Therapy Quality Codes: 6 Independent with activity with or without an assistive device 5 Patient requires set up or clean up by helper. Patient completes activity by themselves 4 Supervision or touching assist (CGA). [place] provide cues , steadying assist 3 The helper provides less than half the effort to complete the activity 2 The helper provides more than half the effort to complete the activity 1 Dependent. The helper does all the effort to complete an activity 7 Patient refused to complete or attempt activity 9 The patient did not perform the activity before the current illness or injury 88 Not attempted due to Medical conditions or safety concerns Transfers (B, C, W/C) (FIM): 4 Scootin Rollin Supine to/from Sit: 4 Sit to/from Stand: 4 Bed to/from Chair: 5 Patient needs min assist to stand from low surfaces and assist with her right leg when getting out of bed. She can get her right leg into bed with difficulty but without assist. Weight Bearing Right Lower Extremity: Right Weight Bearing/Tolerated Gait Training Gait (FIM): 5 Distance: 200' Gait Level of Assist: 5 Gait Persons Needed: 1 Gait Assistive Device: FWW Better steps and weight bearing, still very stiff leg during ambulation. Exercises Supine Ex: Ankle pumps, Quad Set, Heel Slides, Short Arc Quads, Straight leg raise Supine Reps: 15 Treatments toileting, bed mobility and transfers, ambulation, LE exercise Assessment Current Status: Fair Progress Improved bed mobility and ambulation, but very poor right knee ROM. Patient did not want CPM on because it rubs on her privates because she has short legs. PT Short Term Goals Short Term Goals Time Frame: Feb 22, 2019 Transfers (B,C,W/C) (FIM): 5 Gait (FIM): 5 Gait Distance Comment: 150' Gait Level of Assist: 5 Gait Assistive Device: FWW PT Plan Problem List Problem List: Activity Tolerance, Functional Strength, Safety, Balance, Gait, Transfer, Bed Mobility, ROM Treatment/Plan Treatment Plan: Continue Plan of Care Treatment Plan: Bed Mobility, Education, Functional Activity Luis, Functional Strength, Gait, Safety, Therapeutic Exercise, Transfers Treatment Duration: Feb 22, 2019 Frequency: 11 times per week Estimated Hrs Per Day: .25 hour per day (15-30') Patient and/or Family Agrees t: Yes Safety Risks/Education Patient Education: Gait Training, Transfer Techniques, Correct Positioning, Safety Issues Teaching Recipient: Patient Teaching Methods: Demonstration, Discussion Response to Teaching: Reinforcement Needed Time/GCodes Time In: 1346 Time Out: 1420 Total Billed Treatment Time: 34 Total Billed Treatment 1 visit GT 20' FA 14' ITZ BLISS PT February 17, 2019 14:34
[2019-02-17] MEDS: TRIAMTERENE/HCTZ 75-50 (MAXZIDE,DYAZIDE) TABLET PO SCH (21:43)
[2019-02-17] MEDS: PARoxetine 10 MG (PAXIL) TAB PO SCH (21:43)
[2019-02-17] MEDS: HYDROcodone/APAP 5 MG/325 MG (LORTAB) TAB PO PRN (21:43)
[2019-02-17] MEDS: ZOLPIDEM 5 MG (AMBIEN) TAB PO SCH (21:43)
[2019-02-17] MEDS: ATORVASTATIN 20 MG (LIPITOR) TABLET PO SCH (21:44)
[2019-02-17] MEDS: MONTELUKAST 10 MG (SINGULAIR) TAB PO SCH (21:44)
[2019-02-17] MEDS: amLODIPine 5 MG (NORVASC) TAB PO SCH (21:44)
[2019-02-17] MEDS: ESTRADIOL 1 MG TAB (ESTRACE) PO SCH (21:44)
[2019-02-18 03:53] VITALS: BP 135/81
[2019-02-18] MEDS: inSUlin ASPART (NovoLOG) 1 UNIT/0.01 ML (CHARGE PER UNIT) SC SCH (06:03)
[2019-02-18] MEDS: MULTIVIT W/MINERALS TAB (THERAGRAN M) PO SCH (06:09)
[2019-02-18 06:40] LABS: HEMOGLOBIN 12.2 G/DL (11.5-16.0)
[2019-02-18] MEDS: RT-ALBUTEROL/IPRATROPIUM 3 ML (DUONEB) VIAL INH SCH (07:03)
--- NOTE | 2019-02-18 07:33 | Pulmonary Progress Note ---
Sepsis Event Evaluation Height, Weight, BMI Height: 5'5.50" Weight: 224lbs. 0.0oz. 101.297718uc; 36.7 BMI Method:Stated Exam Exam Vital Signs Date Time Temp Pulse Resp B/P (MAP) Pulse Ox O2 Delivery O2 Flow Rate FiO2 02/18/19 07:06 90 Room Air 02/18/19 03:53 98.8 106 20 135/81 (99) 95 NIV CPAP 02/17/19 23:43 96.9 99 20 117/59 (78) 95 Nasal Cannula 2.00 02/17/19 20:00 98.2 96 20 137/78 (97) 95 Nasal Cannula 2.00 02/17/19 20:00 Nasal Cannula 2.00 02/17/19 19:07 96 Nasal Cannula 2.00 02/17/19 16:00 99.2 74 20 140/71 (94) 96 Room Air 02/17/19 15:01 94 Nasal Cannula 2.00 02/17/19 12:00 100.2 113 20 134/73 (93) 97 Room Air 02/17/19 11:26 94 Nasal Cannula 2.00 02/17/19 09:00 Room Air 02/17/19 08:30 18 02/17/19 08:00 96.7 105 18 156/90 (112) 96 Room Air I & O 02/18/19 07:00 Intake Total 1780 ml Output Total 1800 ml Balance -20 ml Height & Weight Height: 5'5.50" Weight: 224lbs. 0.0oz. 101.569941qp; 36.7 BMI Method:Stated General Appearance: No Apparent Distress, WD/WN, Chronically ill, Obese, Other (lethargic) HEENT: PERRL/EOMI, Normal ENT Inspection, Pharynx Normal Neck: Full Range of Motion, Normal Inspection, Non Tender, Supple, Carotid Bruit Respiratory: Chest Non Tender, Lungs Clear, Normal Breath Sounds, No Accessory Muscle Use, No Respiratory Distress, Decreased Breath Sounds Cardiovascular: Regular Rate, Rhythm, No Edema, No Gallop, No JVD, No Murmur, Normal Peripheral Pulses Extremity: Normal Capillary Refill, Normal Inspection, Normal Range of Motion (decreased right leg), Non Tender, No Calf Tenderness, No Pedal Edema Neurologic/Psychiatric: Alert, Oriented x3, No Motor/Sensory Deficits, Normal Mood/Affect Skin: Normal Color, Warm/Dry Lymphatic: No Adenopathy Results Lab Laboratory Tests 02/17/19 06:31 02/17/19 06:34 02/18/19 06:30 Assessment/Plan Assessment/Plan Right knee osteoarthritis s/p replacement Tobacco dependance -Education -out pt workup - [place] ONELIA with narcolepsy -Follows with Dr. Pugh -Home CPAP machine ADI JOHNSON DO Feb 18, 2019 07:33
[2019-02-18] MEDS: ASPIRIN E.C. 81 MG (ECOTRIN) TAB PO SCH (07:54)
[2019-02-18] MEDS: ENOXAPARIN 30 MG/0.3 ML (LOVENOX) SYR SC SCH (07:54)
[2019-02-18] MEDS: HYDROcodone/APAP 5 MG/325 MG (LORTAB) TAB PO PRN ×2 (07:54→11:04)
[2019-02-18] MEDS: LORATADINE (CLARITIN) 10 MG TAB PO SCH (07:54)
[2019-02-18] MEDS: SENNA W/DOCUSATE (SENOKOT S) TABLET PO SCH ×2 (07:54→08:00)
[2019-02-18] MEDS: POLYETHYLENE GLYCOL 17 GM (MIRALAX) PACK PO SCH (07:55)
[2019-02-18 08:00] VITALS: BP 131/68
[2019-02-18] MEDS: MODAFINIL 200 MG PO SCH (08:00)
--- NOTE | 2019-02-18 10:00 | Progress Note-Standard ---
Standard Progress Note Progress Notes/Assess & Plan Date Seen by a Provider: Feb 18, 2019 Time Seen by a Provider: 09:59 Progress/Assessment & Plan No complaints Radiographs--HW well postioned without fx RLE--dressing intact. INtact DF and PF of toes and ankle. 2 plus DP pulse with brisk cap refill. sensation intact throughout s/p RTKA mobilize as able Final Diagnosis feeling much better Vital Signs Date Time Temp Pulse Resp B/P (MAP) Pulse Ox O2 Delivery O2 Flow Rate FiO2 02/18/19 08:00 100.3 103 20 131/68 (89) 92 Nasal Cannula 2.00 02/18/19 07:06 90 Room Air 02/18/19 03:53 98.8 106 20 135/81 (99) 95 NIV CPAP 02/17/19 23:43 96.9 99 20 117/59 (78) 95 Nasal Cannula 2.00 02/17/19 20:00 98.2 96 20 137/78 (97) 95 Nasal Cannula 2.00 02/17/19 20:00 Nasal Cannula 2.00 02/17/19 19:07 96 Nasal Cannula 2.00 02/17/19 16:00 99.2 74 20 140/71 (94) 96 Room Air 02/17/19 15:01 94 Nasal Cannula 2.00 02/17/19 12:00 100.2 113 20 134/73 (93) 97 Room Air 02/17/19 11:26 94 Nasal Cannula 2.00 I & O 02/18/19 07:00 Intake Total 1780 ml Output Total 1800 ml Balance -20 ml Laboratory Tests Test 02/17/19 11:10 02/17/19 15:46 02/17/19 21:11 02/18/19 05:48 Range/Units Glucometer 143 H 162 H 169 H 137 H 70-110 MG/DL Test 02/18/19 06:30 Range/Units Hemoglobin 12.2 11.5-16.0 G/DL Hematocrit 36 35-52 % RLE--NVI. dressing intact. SLR with assistance s/p RTKA doing well [facility] MARTINEZ SAUCEDO MD Feb 18, 2019 10:00
--- NOTE | 2019-02-18 11:55 | Physical Therapy Daily Note ---
PT Daily Note-Current Subjective Pt in bed, agreeable. No pain rating given. Pt with lots of questions regarding exercises and "getting out of bed". Does not recall these covered in previous therapy sessions. Questions answered to both Pt and spouse to satisfaction. Mental Status Patient Orientation: Person, Place, Time, Situation Attachments: Oxygen, Polar Pack Transfers Therapy Code Descriptions/Definitions Functional Trimble Measure: 0=Not Assessed/NA 4=Minimal Assistance 1=Total Assistance 5=Supervision or Setup 2=Maximal Assistance 6=Modified Trimble 3=Moderate Assistance 7=Complete Trimble Therapy Quality Codes: 6 Independent with activity with or without an assistive device 5 Patient requires set up or clean up by helper. Patient completes activity by themselves 4 Supervision or touching assist (CGA). [place] provide cues , steadying assist 3 The helper provides less than half the effort to complete the activity 2 The helper provides more than half the effort to complete the activity 1 Dependent. The helper does all the effort to complete an activity 7 Patient refused to complete or attempt activity 9 The patient did not perform the activity before the current illness or injury 88 Not attempted due to Medical conditions or safety concerns Transfers (B, C, W/C) (FIM): 4 Supine to/from Sit: 4 Sit to/from Stand: 5 Assist with (R) LE moving supine->sit. Pt utilizes (L) LE to assist in moving (R) back into bed. Weight Bearing Right Lower Extremity: Right Weight Bearing/Tolerated Gait Training Gait (FIM): 5 Distance (FIM): 3=150 ft Distance: 150 Gait Level of Assist: 5 Gait Persons Needed: 1 Gait Assistive Device: FWW Skilled VCS for heel-toe gait pattern. Pt ambulates with (R) LE very stiff, little to no knee flexion during swing phase. Stair Training Stair Training: Handrails/: uses walker Stairs (FIM): 1 #of Steps: 1 Stairs: Pattern: Step to Level of Assist: 4 Max encouragement to attempt curb step. Skilled VCS for proper sequencing, especially with descending. Reviewed with Pt and spouse sequencing and use of HR on (L) as per set up at home. Exercises Supine Ex: Ankle pumps, Quad Set, Heel Slides, Straight leg raise Supine Reps: 10 Educated Pt and spouse re: HEP upon discharge until HH is in the home. Verbali zed understanding. Treatments Gait training on level surface and step, transfer training, TKR exercises. Pt returned to bed with O2 in situ, needs met. Assessment Current Status: Fair Progress Pt tolerated well. Mobilizes well but self-limits knee flexion significantly on (R) with gait, exercise, and transfers. PT Short Term Goals Short Term Goals Time Frame: Feb 22, 2019 Transfers (B,C,W/C) (FIM): 5 Gait (FIM): 5 Gait Distance Comment: 150' Gait Level of Assist: 5 Gait Assistive Device: FWW PT Plan Problem List Problem List: Activity Tolerance, Functional Strength, Safety, Balance, Gait, Transfer, Bed Mobility, ROM Treatment/Plan Treatment Plan: Continue Plan of Care Treatment Plan: Bed Mobility, Education, Functional Activity Luis, Functional Strength, Gait, Safety, Therapeutic Exercise, Transfers Treatment Duration: Feb 22, 2019 Frequency: 11 times per week Estimated Hrs Per Day: .25 hour per day (15-30') Patient and/or Family Agrees t: Yes Safety Risks/Education Patient Education: Gait Training, Transfer Techniques, Steps Teaching Recipient: Patient, Family Teaching Methods: Demonstration, Discussion Response to Teaching: Verbalize Understanding, Return Demonstration Discharge Recommendations Therapy D/C Recommendations: Home w/ Family Support, Physical Therapy Home Care Time/GCodes Time In: 0830 Time Out: 0914 Total Billed Treatment Time: 44 Total Billed Treatment 1, GT x 30', Ex x 14' G Codes Necessary: MICHAEL Parry DPT Feb 18, 2019 11:55
[2019-02-18 12:33] VITALS: BP 131/68
--- NOTE | 2019-02-20 14:08 | NUR ---
YENY/DUSTY. Block Greaser was contacted by Michelle that patient had refused home set up for O2 today. Block Greaser called patient who did not answer; called spouse who confirmed that patient did not need or want O2. AVCP picked up portable concentrator from patient.
== END 2019-02-18 12:36 | disposition home or self-care (01) | DRG 470 ==
LOC: 4TH 05:59 → SURG 06:00 → 4TH 10:10
PROVIDERS: ADMIT Orthopaedic Surgery; ATTEND Orthopaedic Surgery
PROC: 0SRC0J9 Replacement of Right Knee Joint with Synthetic Substitute, Cemented, Open Approach (ICD-10-PCS; principal; 2019-02-15 07:31)
DX: M17.11 Unilateral primary osteoarthritis, right knee (principal); G47.33 Obstructive sleep apnea (adult) (pediatric); G47.429 Narcolepsy in conditions classified elsewhere without cataplexy; I10 Essential (primary) hypertension; E11.65 Type 2 diabetes mellitus with hyperglycemia; F41.9 Anxiety disorder, unspecified; K59.00 Constipation, unspecified; E78.2 Mixed hyperlipidemia; M54.9 Dorsalgia, unspecified; K57.90 Diverticulosis of intestine, part unspecified, without perforation or abscess without bleeding; J45.909 Unspecified asthma, uncomplicated; E66.01 Morbid (severe) obesity due to excess calories; M79.7 Fibromyalgia; B19.20 Unspecified viral hepatitis C without hepatic coma; F17.210 Nicotine dependence, cigarettes, uncomplicated; Z68.36 Body mass index [BMI] 36.0-36.9, adult
CPT/HCPCS: 36415; 73560; 80053; 82962; 83036; 85014; 85018; 85025; 86850; 86900; 86901; 94640; 94664; 94760

== ENCOUNTER 2019-07-20 05:34 | Outpatient (CLI) | payer BC ==
[~2019-07-20] VITALS: Ht 165.1 cm; Wt 106.8 kg
[~2019-07-20 05:34] MED LIST changes: +OXYC1TAB87 PO
[2019-07-21] MEDS ORDERED: HYDR-3816 PO (08:20)
== END 2019-07-20 09:41 | disposition home or self-care (01) ==
LOC: PREOP 05:34
PROVIDERS: ATTEND Surgery
DX: Z01.818 Encounter for other preprocedural examination (principal)

== ENCOUNTER 2019-07-21 07:10 | Day surgery (SDC) | payer BC ==
--- NOTE | 2019-07-18 15:06 | HISTORY AND PHYSICAL ---
DATE OF SERVICE: REFERRING PHYSICIAN: Dr. Cowan. HISTORY OF PRESENT ILLNESS: The patient is a 53-year-old female, who is referred over to us for a one month history of lower crampy abdominal pain with episodes of bright red bloody stools as well as blood clots. She reports that she has been having multiple episodes of bowel movements daily, which alternates between diarrhea as well as formed stools. She reports that she has had a large amount of gas as well as a discomfort in the rectal region. She also reports that she feels like at times that she has had some pussy drainage from the rectum with bowel movement also. She reports her last colonoscopy was 2 years ago, which she reports was normal. She denies any fever or chills as well as no nausea or vomiting. She does report issues with hemorrhoids, but reports that this is something more than just hemorrhoids. She did present to her primary care physician where she reports that she was told that she had some form of tear. PAST MEDICAL HISTORY: Narcolepsy, hypercholesterolemia, hypertension, mood disorder, obstructive sleep apnea. PAST SURGICAL HISTORY: Right knee scope, right total knee replacement in 2019, right shoulder rotator cuff repair, there is nine left knee arthroscopy in 2018, C4-C5 neck fusion 2017, right breast lumpectomy, which was benign and colonoscopy in 2017. ALLERGIES: No known drug allergies. MEDICATIONS: Provigil 200 mg daily, Ritalin 10 mg daily, tramadol 50 mg p.r.n., Estrace 1 mg daily, Lipitor 20 mg daily, amlodipine 5 mg daily, Paroxetine 20 mg daily. SOCIAL HISTORY: Previous for smoke at 1-1/2 packs per day for 40 years, quit in 2019. Rare for alcohol. FAMILY HISTORY: Mother, diabetes. Father, diabetes, hypertension. Sister, diabetes. Maternal grandmother diabetes, hypertension. Paternal grandmother breast cancer. VITAL SIGNS: Blood pressure is 152/80. Current weight is 237 pounds, height 5 feet 5 inches. REVIEW OF SYSTEMS: Well-nourished female, in no acute distress. She is not experiencing any shortness of breath or difficulty breathing. No chest pain, palpitations or diaphoresis. No nausea, vomiting. She does report lower crampy abdominal pain. She does report alternating episodes of diarrhea as well as formed stool. She does report episodes of bright red blood per rectum as well as blood clot in her stool. She also reports episodes of rectal pain as well as episodes of pus with bowel movements. No fever or chills. No recent inadvertent weight loss. All other review of systems negative. PHYSICAL EXAMINATION: CHEST: Clear. Good breath sounds bilaterally. HEART: Regular, no murmurs. EXTREMITIES: No lower extremity edema. Negative Homans sign. HEENT: No scleral icterus. No cervical lymphadenopathy. ABDOMEN: Soft, nontender, nondistended. Rectum upon examination, there is an approximately stage I to II external hemorrhoids noted with no fissures identified. There is pain upon palpation of the anus at the 6 o'clock position. There is no drainage. There was pain upon digital rectal exam; however, no identifiable masses. This is believed to be consistent with a fistula. SKIN: Warm, dry and pink. NEUROLOGIC: Awake, alert, oriented x3. ASSESSMENT AND PLAN: A 53-year-old female with rectal pain, blood in her stool as well as episodes of purulent drainage from near rectum. At this time, this is believed to be a rectal fistula; however, there is no identifiable tract identified during exam. Exam was painful and we will recommend proceeding with further examination with anal exam under anesthesia with possible fistulotomy with possible Seton suture placement as well as sigmoidoscopy. The risks and benefits of the procedure as well as the procedure and home care instructions were explained to the patient. The patient verbalized understanding of instructions and agrees to proceed as planned. At this time, we will proceed with scheduling the patient for the anal exam under anesthesia with possible fistulotomy with possible Seton suture placement and sigmoidoscopy. Job ID: [id number] DocumentID: [id number] Dictated Date: 07/18/2019 09:27:19 Fabric Separator Operator Date: 07/18/2019 09:52:52 Dictated By: WILLIAM MORLEY APRN
[2019-07-21] VITALS (9 sets, daily range): BP systolic 108–161; BP diastolic 79–98
[~2019-07-21] VITALS: Ht 165 cm; Wt 106.8 kg
[~2019-07-21 07:10] MED LIST changes: +SIMV40TA25 PO; -SIMV40TA4 PO; -TRAM50TA2 PO; +TRM50T PO
[2019-07-21] MEDS ORDERED: LACTATED RINGERS 1,000 ML IV PRN (07:24)
[2019-07-21] MEDS ORDERED: CATHETER FLUSH 10 ML SYR IV PRN (07:30)
[2019-07-21] MEDS ORDERED: ceFAZolin 2 GM IV Premixed 50 ML IV ONE (07:30)
[2019-07-21] MEDS ORDERED: ONDANSETRON 4 MG/2 ML (SDV) Z0FRAN ONE (07:53)
[2019-07-21] MEDS ORDERED: proPOfol 200 MG/20 ML (DIPRIVAN) VIAL IV ONE (07:53)
[2019-07-21] MEDS ORDERED: fentaNYL INJECTION 100 MCG/2 ML AMP ONE (07:53)
[2019-07-21] MEDS ORDERED: DEXAMETHASONE 10 MG/ML (DECADRON) 1 ML VIAL ONE (07:53)
[2019-07-21] MEDS ORDERED: LIDOCAINE PF 2% 5 ML (XYLOCAINE) VIAL ONE (07:53)
[2019-07-21] MEDS ORDERED: SEVOFLURANE (ULTANE) 15 ML INHAL SOLN ONE ×3 (07:53→10:33)
[2019-07-21] MEDS ORDERED: MIDAZOLAM 2 MG/2 ML (VERSED) VIAL IV ONE (08:00)
[2019-07-21] MEDS ORDERED: ACETAMINOPHEN 325 MG TABLET PO PRN (08:15)
[2019-07-21] MEDS ORDERED: HYDROcodone/APAP 5 MG/325 MG (LORTAB) TAB PO ONE (08:15)
[2019-07-21] MEDS ORDERED: morphine INJ 10 MG/ML 1ML (SYR OR VIAL) IVP PRN (08:15)
[2019-07-21] MEDS ORDERED: ONDANSETRON 4 MG/2 ML (SDV) Z0FRAN IVP PRN ×2 (08:15→10:45)
[2019-07-21] MEDS ORDERED: HYDR-3816 PO (08:20)
--- NOTE | 2019-07-21 08:21 | Discharge Inst-Surgical ---
D/C Lap Instructions-KIDO Reconcile Patient Problems Problems Reviewed?: Yes New, Converted, or Re-Newed RX: RX on Chart Follow Up Appt in 2 weeks Activity as tolerated No driving for 24 hours No driving while on pain medications Incentive Spirometry use every 2 hours while awake Regular Diet Symptoms to Report: Fever over 101 degree F, Nausea/Vomiting Infection Signs and Symptoms to report: Increased redness, Foul odor of wound, Increased drainage Bathing instructions: May shower Operative Area Clean/Dry; Keep incision clean/dry If any problems/questions: Contact your physician or go to Emergency Room WILLIAM MORLEY APRN Jul 21, 2019 08:21 POS
--- NOTE | 2019-07-21 08:22 | Progress Note-Pre Operative ---
Pre-Operative Progress Note H&P Reviewed The H&P was reviewed, patient examined and no changes noted. Date Seen by Provider: Jul 21, 2019 Time Seen by Provider: 08:20 Date H&P Reviewed: Jul 21, 2019 Time H&P Reviewed: 08:15 Pre-Operative Diagnosis: Rectal pain, blood in stool, poss anal fistula WILLIAM MORLEY APRN Jul 21, 2019 08:22 POS
[2019-07-21] MEDS ORDERED: BUP/EPI 0.5% 1:200,000 (SENSORCAINE) 30 ML VIAL ONE (09:41)
[2019-07-21] MEDS ORDERED: MIDAZOLAM 2 MG/2 ML (VERSED) VIAL ONE (09:56)
--- NOTE | 2019-07-21 10:35 | Progress Note-Post Operative ---
Post-Operative Progess Note Surgeon (s)/Layout Technician (s) Surgeon GRACIA ROY MD Layout Technician: skye sutherland MOLD SWABBER Pre-Operative Diagnosis Rectal pain, blood in stool, poss anal fistula Post-Operative Diagnosis anterior superficial anal fistula, chronic stage 2-3 ext and int hemorrrhoids. Procedure & Operative Findings Date of Procedure 07/21/19 Procedure Performed/Findings anal exam under anesthesia, pudendal nerve block, fistulotomy Anesthesia Type general LMA Estimated Blood Loss Estimated blood loss (mL): minimal Specimens/Packing Specimens Removed none GRACIA ROY MD Jul 21, 2019 10:35 POS
[2019-07-21] MEDS ORDERED: HYDROmorphone 2 MG/ML VIAL (DILAUDID) IV ONE (10:45)
--- NOTE | 2019-07-21 12:47 | Anesthesia-General Post-Op ---
General Patient Condition Mental Status/LOC: Same as Preop Cardiovascular: Satisfactory Nausea/Vomiting: Absent Respiratory: Satisfactory Pain: Controlled Complications: Absent Post Op Complications Complications None Follow Up Care/Instructions Patient Instructions None needed. Anesthesia/Patient Condition Patient Condition Patient is doing well, no complaints, stable vital signs, no apparent adverse anesthesia problems. No complications reported per nursing. JESSIE PATTEN CRNA Jul 21, 2019 12:47 POS
--- NOTE | 2019-07-21 19:25 | OPERATIVE REPORT ---
DATE OF SERVICE: 07/21/2019 ATTENDING PRIMARY CARE PHYSICIAN: Oscar Cowan DO. PREOPERATIVE DIAGNOSES: Perianal pain, redness, swelling, purulent and bloody drainage. POSTOPERATIVE DIAGNOSES: Anterior superficial anal fistula chronic between stage II and III external and internal hemorrhoids. No abscesses identified. PROCEDURE: Anal exam under anesthesia, pudendal nerve block, fistulotomy. SURGEON: Gracia Roy MD. MEAL COOKER: Storm Hernandez APRN. ANESTHESIA: General laryngeal mask airway. ESTIMATED BLOOD LOSS: Minimal. FINDINGS: Anterior superficial anal fistula chronic between stage II and III external and internal hemorrhoids. No abscesses identified. DISPOSITION: The patient tolerated the procedure well. INDICATIONS: The patient is a 53-year-old female who was referred over to us for 1 month history of intermittent red blood per rectum as well as purulent drainage. She reports that she has had multiple episodes, which has worsened over time. She was seen by her physician and at that time, she did have a posterior fissure and was treated medically, which initially helped; however, states that she has had a recurrence of symptoms. She does have a history of hemorrhoidal flareups and did undergo a colonoscopy approximately 2 years ago and episodes of the hemorrhoids and no other lesions identified. DESCRIPTION OF PROCEDURE: The patient was brought to the endoscopy suite, laid in the supine position. After adequate IV pain and sedative medications and general laryngeal mask airway intubation, the patient was placed in lithotomy position. The perineum was then prepped and draped in standard surgical fashion. A 1% lidocaine with epinephrine was used to proceed with a pudendal nerve block bilaterally at the 3 and 9 o'clock position overlying the ischial tuberosity. Once the anal sphincters had relaxed, a self-retaining speculum was placed. We then proceeded with circumferential examination of the anus with an anterior superficial fistula identified after using a lacrimal probe. This did not encompass the anal muscle sphincters. There was some soft scar tissue along the posterior aspect, which may have indicated previous fissure. There was also between stage II and III external and internal hemorrhoids. These were not actively edematous nor inflamed and no bleeding. We then proceeded with a fistulotomy over the lacrimal probe using an electrocautery with visualization of good hemostasis. Once this was accomplished, a hemostatic plug made of Gelfoam and Surgicel was placed in the anus. The anus was then covered with sterile gauze followed by ABD followed by mesh shorts. The patient tolerated the procedure well. She will be instructed to remove the packing with her first bowel movement. She also will be instructed to proceed with Sitz baths 4 times a day as well as after every bowel movement and to make sure that her stools are extremely soft by incorporating a high fiber diet as well as stool softeners and laxatives and prevent constipation. We will have her follow up in the office in 2 weeks. Job ID: [id number] DocumentID: [id number] Dictated Date: 07/21/2019 10:56:20 Analyst Competitive Intelligence Date: 07/21/2019 19:24:02 Dictated By: GRACIA ROY MD
--- OUTSIDE RECORDS SUMMARY | 2019-08-13 20:56 | XMS REPORT | Clinical Summary ---
Author Author [facility] POS Organization [facility] SP Address Unknown SP Phone Unavailable SP Care Team Providers Care Wellness Assistant Name Role Phone POS Joseline Donaldson TRUCK DRIVER RUBBISH COLLECTOR Unavailable SP Source Comments Some departments are not documenting in the electronic medical record. If you d o not see the information that you expected, contact Release of Information in [facility] [employer] Information Management department at [phone] for further assistan ce in locating additional records.[facility] Allergies Not on File Medications Not on file Active Problems Not on file Social History Date POS Tobacco Use Types Packs/Day Years Used SP SP Never Assessed SP Sex Assigned at Date Recorded SP Not on file SP Industry POS Job Start Date Occupation SP Not on file SP Not on file Not on file SP Travel End POS Travel History Travel Start SP No recent travel history available. 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
--- OUTSIDE RECORDS SUMMARY | 2019-08-13 20:56 | XMS REPORT ---
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 Name Role Phone POS STACEY Savage Unavailable SP PROBLEMS No Known Problems ALLERGIES No Information ENCOUNTERS Encounter Location Date Diagnosis POS [address] [id number] SP Feb, SP [facility] [address] [place] [address] SP Oct, SP [facility] [address] SP Oct, Non-recurrent acute suppurat james otitis media of both ears SP spontaneous rupture of tympanic membranes H66.003 [facility] [address] SP Aug, Coughing R05 and Bilateral p ulmonary infiltrates on chest x-ray SP [facility] [address] SP Aug, Viral upper respiratory trac t infection J06.9 and Wheezing R06.2 SP [facility] [address] SP January, Bronchitis J40 SP [address] SP Oct, Bronchitis J40 and Orthopnea R06.01 SP [place] [address] [place] [id number] [place] [address] SP January, Pneumonia due to infectious organism, unspecified laterality, SP part of lung J18.9 and Cough R05 [facility] [id number] [place] [address] SP Jun, Encounter for immunization Z 23 SP [facility] [address] [id number] [address] [place] [phone] SP Jun, Encounter for immunization Z 23 SP [facility] [address] [id number] [address] [place] [phone] SP Dec, SP [facility] [address] [facility] [id number] [address] [place] [phone] SP Dec, SP [facility] [address] [facility] [id number] [address] [place] [phone] SP Jun, SP [facility] [address] [facility] [id number] [address] [place] [phone] SP Jun, SP IMMUNIZATIONS No Known Immunizations SOCIAL HISTORY Never Assessed REASON FOR VISIT PLAN OF CARE VITAL SIGNS Height 65 in 2014-06-28 POS Weight 204.2 lbs 2014-06-28 POS Temperature 97 degrees Fahrenheit 2014-06-28 POS Heart Rate 90 bpm 2014-06-28 POS Respiratory Rate 24 2014-06-28 POS Blood pressure systolic 110 mmHg 2014-06-28 POS Blood pressure diastolic 80 mmHg 2014-06-28 POS MEDICATIONS Unknown Medications RESULTS No Results PROCEDURES No Known procedures INSTRUCTIONS MEDICATIONS ADMINISTERED No Known Medications MEDICAL (GENERAL) HISTORY Type Description Date POS Medical History Narcolepsy SP Surgical History neck surgery 2017 SP
--- OUTSIDE RECORDS SUMMARY | 2019-08-13 20:57 | XMS REPORT | Continuity of Care Document ---
Author Organization Unknown POS Address Unknown SP Phone Unavailable SP Allergies Active Description Code Type Severity POS Reaction Onset Reported/Identified POS to Patient Clinical Status POS Yes SEASONAL, ENVIRONMENTAL SEASON AL, ENVIRONMENTAL SP Mild N/A 07/31/2010 SP SP Yes No Known Drug Allergies [id number] Drug SP Unknown N/A 02/07/2019 SP SP Medications There is no data. Problems Date Dx Coded Attending Type Code POS Diagnosed By POS 07/11/2013 ROCHELLE WHITTAKER Ot 327.23 SP OBSTRUCTIVE SLEEP APNEA (ADULT) (PEDIATR SP 10/29/2013 FREDIS GAUTHIER, DENNIS Cervantes Ot 786.50 SP CHEST PAIN NOS SP 06/28/2014 STACEY FREEMAN APRN 381.81 SP EUSTACHIAN TUBE DYSFUNCTION SP 11/09/2014 NESSA MULLER MD Ot 272. 4 SP SP 11/09/2014 NESSA MULLER MD Ot 278. 00 SP SP 11/09/2014 NESSA MULLER MD Ot 401. 9 SP SP 11/09/2014 NESSA MULLER MD Ot 786. 50 SP SP 11/09/2014 NESSA MULLER MD Ot V17. 3 SP SP 07/17/2015 NESSA MULLER MD Ot 070. 70 SP SP 07/17/2015 NESSA MULLER MD Ot 397. 0 SP SP 07/17/2015 NESSA MULLER MD Ot 401. 9 SP SP 07/17/2015 NESSA MULLER MD Ot 424. 0 SP SP 07/17/2015 NESSA MULLER MD Ot 786. 50 SP SP 07/17/2015 NESSA MULLER MD Ot V17. 3 SP SP 02/02/2016 NESSA MULLER MD Ot 272. 4 SP NEC/NOS SP 02/02/2016 NESSA MULLER MD Ot 278. 00 SP NOS SP 02/02/2016 NESSA MULLER MD Ot 401. 9 SP NOS SP 02/02/2016 NESSA MULLER MD Ot 786. 50 SP PAIN NOS SP 02/02/2016 NESSA MULLER MD Ot V17. 3 SP HX-ISCHEM HEART DIS SP 02/02/2016 NESSA MULLER MD Ot 070. 70 SP VIRAL HEPATITIS C WITHOUT HE SP 02/02/2016 NESSA MULLER MD Ot 397. 0 SP VALVE DISEASE SP 02/02/2016 NESSA MULLER MD Ot 401. 9 SP NOS SP 02/02/2016 NESSA MULLER MD Ot 424. 0 SP VALVE DISORDER SP 02/02/2016 NESSA MULLER MD Ot 786. 50 SP PAIN NOS SP 02/02/2016 NESSA MULLER MD Ot V17. 3 SP HX-ISCHEM HEART DIS SP 02/03/2016 NESSA MULLER MD Ot B19. 20 SP VIRAL HEPATITIS C WITHOUT HE SP 02/03/2016 NESSA MULLER MD Ot E78. 5 SP UNSPECIFIED SP 02/03/2016 NESSA MULLER MD Ot F17.210 SP NICOTINE DEPENDENCE, CIGARETTES, UNCOMPL SP 02/03/2016 NESSA MULLER MD Ot F32. 9 SP DEPRESSIVE DISORDER, SINGLE EPISOD SP 02/03/2016 NESSA MULLER MD Ot F41. 9 SP DISORDER, UNSPECIFIED SP 02/03/2016 NESSA MULLER MD Ot I10 SP (PRIMARY) HYPERTENSION SP 02/03/2016 NESSA MULLER MD Ot M79. 7 SP SP 02/03/2016 NESSA MULLER MD Ot R07. 89 SP CHEST PAIN SP 02/03/2016 NESSA MULLER MD Ot Z91. 14 SP OTHER NONCOMPLIANCE WITH MEDIC SP 06/12/2016 MARTINEZ SAUCEDO MD Ot M51.36 SP OTHER INTERVERTEBRAL DISC DEGENERATION, SP 06/17/2016 MARTINEZ SAUCEDO MD Ot M51.36 SP OTHER INTERVERTEBRAL DISC DEGENERATION, SP 06/24/2016 MARTINEZ SAUCEDO MD Ot M51.36 SP OTHER INTERVERTEBRAL DISC DEGENERATION, SP 06/10/2017 MARTINEZ SAUCEDO MD Ot M51.36 SP OTHER INTERVERTEBRAL DISC DEGENERATION, SP 06/11/2017 MARTINEZ SAUCEDO MD, Ot M51.36 SP OTHER INTERVERTEBRAL DISC DEGENERATION, SP 06/12/2017 RERE GAUTHIER, MARTINEZ Carpio Ot G47.33 SP OBSTRUCTIVE SLEEP APNEA (ADULT) (PEDIATR SP 09/15/2017 LEWIS GAUTHIER, MARTINEZ Carpio Ot M51.36 SP OTHER INTERVERTEBRAL DISC DEGENERATION, SP 09/30/[address] [employer] [employer] ENGINEER Ot M46.86 SP OTHER SPECIFIED INFLAMMATORY SPONDYLOPAT SP 09/30/[address] [employer] [employer] ENGINE[employer] Ot M48.061 SP SPINAL STENOSIS, LUMBAR REGION WITHOUT N SP 09/30/[address] [employer] [employer] ENGINE[employer] Ot M51.26 SP OTHER INTERVERTEBRAL DISC DISPLACEMENT, SP 09/30/[address] GILMAN[address] Ot R20.0 SP ANESTHESIA OF SKIN SP 10/01/2017 PAULA ENGLISH MD, Ot M48.02 SP SPINAL STENOSIS, CERVICAL REGION SP 10/12/2017 RENU WATERS DO Ot S14.159A SP OTH INCMPL LESION AT UNSP LEVEL OF CERV SP 10/12/2017 RENU WATERS DO Ot S24.119A SP COMPLETE LESION AT UNSP LEVEL OF THORACI SP 10/12/2017 RENU WATERS DO Ot Z01.810 SP ENCOUNTER FOR PREPROCEDURAL CARDIOVASCUL SP 10/12/2017 RENU WATERS DO Ot S14.159A SP OTH INCMPL LESION AT UNSP LEVEL OF CERV SP 10/12/2017 RENU WATERS DO Ot S24.119A SP COMPLETE LESION AT UNSP LEVEL OF THORACI SP 10/12/2017 RENU WATERS DO Ot Z01.810 SP ENCOUNTER FOR PREPROCEDURAL CARDIOVASCUL SP 10/13/2017 PAULA ENGLISH MD, Ot M48.02 SP SPINAL STENOSIS, CERVICAL REGION SP 10/14/2017 RENU WATERS DO, Ot 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 SP 10/14/2017 RENU WATERS DO Ot M48.02 SP SPINAL STENOSIS, CERVICAL REGION SP 10/21/2017 RENU WATERS DO, Ot S14.159A SP OTH INCMPL LESION AT UNSP LEVEL OF CERV SP 10/21/2017 RENU WATERS DO Ot S24.119A SP COMPLETE LESION AT UNSP LEVEL OF THORACI SP 10/21/2017 RENU WATERS DO Ot Z01.810 SP ENCOUNTER FOR PREPROCEDURAL CARDIOVASCUL SP 12/04/2017 BIRCHLEAF DO, SIOMARA K Ot B19.20 SP VIRAL HEPATITIS C WITHOUT HE SP 12/04/2017 BIRCHLEAF DO, SIOMARA K Ot E78.00 SP HYPERCHOLESTEROLEMIA, UNSPECIFIED SP 12/04/2017 BIRCHLEAF DO, SIOMARA K Ot F17.210 SP DEPENDENCE, CIGARETTES, UNCOMPL SP 12/04/2017 BIRCHLEAF DO, SIOMARA K Ot I10 SP (PRIMARY) HYPERTENSION SP 12/04/2017 BIRCHLEAF DO, SIOMARA K Ot M79.89 SP SPECIFIED SOFT TISSUE DISORDERS SP 12/04/2017 BIRCHLEAF DO, SIOMARA K Ot R60.0 SP EDEMA SP 12/04/2017 BIRCHLEAF DO, SIOMARA K Ot Z87.19 SP HISTORY OF OTHER DISEASES OF TH SP 12/04/2017 BIRCHLEAF DO, SIOMARA K Ot Z87.448 SP HISTORY OF OTHER DISEASES OF UR SP 12/04/2017 [facility], SIOMARA K Ot Z90.711 SP ABSENCE OF UTERUS WITH REMAININ SP 12/04/2017 [facility], SIOMARA K Ot Z98.1 SP STATUS SP 12/04/2017 BIRCHLEAF DO, SIOMARA K Ot Z98.51 SP LIGATION STATUS SP 12/07/2017 BIRCHLEAF DO, SIOMARA K Ot B19.20 SP VIRAL HEPATITIS C WITHOUT HE SP 12/07/2017 [facility], SIOMARA Cervantes Ot E78.00 SP HYPERCHOLESTEROLEMIA, UNSPECIFIED SP 12/07/2017 BIRCHLEAF DO, SIOMARA K Ot F17.210 SP DEPENDENCE, CIGARETTES, UNCOMPL SP 12/07/2017 [facility], SIOMARA K Ot I10 SP (PRIMARY) HYPERTENSION SP 12/07/2017 [facility], SIOMARA K Ot M79.89 SP SPECIFIED SOFT TISSUE DISORDERS SP 12/07/2017 BIRCHLEAF DO, SIOMARA K Ot R60.0 SP EDEMA SP 12/07/2017 BIRCHLEAF DO, SIOMARA K Ot Z87.19 SP HISTORY OF OTHER DISEASES OF TH SP 12/07/2017 BIRCHLEAF DO, SIOMARA K Ot Z87.448 SP HISTORY OF OTHER DISEASES OF UR SP 12/07/2017 BIRCHLEAF DO, SIOMARA K Ot Z90.711 SP ABSENCE OF UTERUS WITH REMAININ SP 12/07/2017 [facility], SIOMARA K Ot Z98.1 SP STATUS SP 12/07/2017 SIOMARA ALLEN DO Billy Ot Z98.51 SP LIGATION STATUS SP 02/07/2019 MARTINEZ SAUCEDO MD Ot M17.11 SP UNILATERAL PRIMARY OSTEOARTHRITIS, RIGHT SP 02/07/2019 MARTINEZ SAUCEDO MD Ot R53.83 SP OTHER FATIGUE SP 02/07/2019 MARTINEZ SAUCEDO MD Ot Z01.811 SP ENCOUNTER FOR PREPROCEDURAL RESPIRATORY SP 02/07/2019 MARTINEZ SAUCEDO MD Ot Z01.812 SP ENCOUNTER FOR PREPROCEDURAL LABORATORY E SP 02/07/2019 MARTINEZ SAUCEDO MD Ot Z11.2 SP ENCOUNTER FOR SCREENING FOR OTHER BACTER SP 02/09/2019 MARTINEZ SAUCEDO MD Ot M17.11 SP UNILATERAL PRIMARY OSTEOARTHRITIS, RIGHT SP 02/09/2019 MARTINEZ SAUCEDO MD Ot R53.83 SP OTHER FATIGUE SP 02/09/2019 MARTINEZ SAUCEDO MD Ot Z01.811 SP ENCOUNTER FOR PREPROCEDURAL RESPIRATORY SP 02/09/2019 MARTINEZ SAUCEDO MD Ot Z01.812 SP ENCOUNTER FOR PREPROCEDURAL LABORATORY E SP 02/09/2019 MARTINEZ SAUCEDO MD Ot Z11.2 SP ENCOUNTER FOR SCREENING FOR OTHER BACTER SP 02/18/2019 MARTINEZ SAUCEDO MD Ot B19.20 SP UNSPECIFIED VIRAL HEPATITIS C WITHOUT HE SP 02/18/2019 MARTINEZ SAUCEDO MD Ot E11.65 SP TYPE 2 DIABETES MELLITUS WITH HYPERGLYCE SP 02/18/2019 MARTINEZ SAUCEDO MD Ot E66.01 SP MORBID (SEVERE) OBESITY DUE TO EXCESS CA SP 02/18/2019 MARTINEZ SAUCEDO MD Ot E78.2 SP MIXED HYPERLIPIDEMIA SP 02/18/2019 MARTINEZ SAUCEDO MD Ot F17.210 SP NICOTINE DEPENDENCE, CIGARETTES, UNCOMPL SP 02/18/2019 MARTINEZ SAUCEDO MD Ot F41.9 SP ANXIETY DISORDER, UNSPECIFIED SP 02/18/2019 MARTINEZ SAUCEDO MD Ot G47.33 SP OBSTRUCTIVE SLEEP APNEA (ADULT) (PEDIATR SP 02/18/2019 MARTINEZ SAUCEDO MD Ot G47.429 SP 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 SP 02/18/2019 MARTINEZ SAUCEDO MD Ot I1 0 SP (PRIMARY) HYPERTENSION SP 02/18/2019 MARTINEZ SAUCEDO MD Ot J45.909 SP UNSPECIFIED ASTHMA, UNCOMPLICATED SP 02/18/2019 LEWIS GAUTHIER, MARTINEZ Carpio Ot K57.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, PART UNSP, W/O PERF SP 02/18/2019 LEWIS GAUTHIER, MARTINEZ Carpio Ot K59.00 SP CONSTIPATION, UNSPECIFIED SP 02/18/2019 MARTINEZ SAUCEDO MD Ot M17.11 SP UNILATERAL PRIMARY OSTEOARTHRITIS, RIGHT SP 02/18/2019 LEWIS GAUTHIER, MARTINEZ Carpio Ot M54.9 SP DORSALGIA, UNSPECIFIED SP 02/18/2019 MARTINEZ SAUCEDO MD Ot M79.7 SP FIBROMYALGIA SP 02/18/2019 MARTINEZ SAUCEDO MD Ot Z68.36 SP BODY MASS INDEX (BMI) 36.0-36.9, ADULT SP 07/20/2019 KIRILL GAUTHIER, GRACIA Ot Z01.81 8 SP FOR OTHER PREPROCEDURAL EXAMIN SP 07/21/2019 MARTINEZ SAUCEDO MD Ot M51.36 SP OTHER INTERVERTEBRAL DISC DEGENERATION, SP 07/21/[address] [employer] [employer]TE[employer] ENGINEER Ot M46.86 SP OTHER SPECIFIED INFLAMMATORY SPONDYLOPAT SP 07/21/[address] [employer] [employer] INTEGRITY ENGINEER Ot M48.061 SP SPINAL STENOSIS, LUMBAR REGION WITHOUT N SP 07/21/[address] [employer] [employer] INTEGRITY ENGINEER Ot M51.26 SP OTHER INTERVERTEBRAL DISC DISPLACEMENT, SP 07/21/[address] [employer] [employer] INTEGRITY ENGINEER Ot R20.0 SP ANESTHESIA OF SKIN SP 07/21/2019 PAULA ENGLISH MD Ot M48.02 SP SPINAL STENOSIS, CERVICAL REGION SP 07/21/2019 RENU WATERS DO Ot S14.159A SP OTH INCMPL LESION AT UNSP LEVEL OF CERV SP 07/21/2019 RENU WATERS DO Ot S24.119A SP COMPLETE LESION AT UNSP LEVEL OF THORACI SP 07/21/2019 RENU WATERS DO Ot Z01.810 SP ENCOUNTER FOR PREPROCEDURAL CARDIOVASCUL SP 07/21/2019 RENU WATERS DO Ot 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 SP 07/21/2019 RENU WATERS DO Ot M48.02 SP SPINAL STENOSIS, CERVICAL REGION SP 07/21/2019 GRACIA ROY MD Ot E78.00 SP HYPERCHOLESTEROLEMIA, UNSPECIFIED SP 07/21/2019 GRACIA ROY MD Ot E78.5 SP UNSPECIFIED SP 07/21/2019 GRACIA ROY MD Ot F39 SP MOOD [AFFECTIVE] DISORDER SP 07/21/2019 GRACIA ROY MD Ot G47.33 SP SLEEP APNEA (ADULT) (PEDIATR SP 07/21/2019 GRACIA ROY MD Ot G62.9 SP UNSPECIFIED SP 07/21/2019 GRACIA ROY MD Ot I10 SP (PRIMARY) HYPERTENSION SP 07/21/2019 GRACIA ROY MD Ot J45.90 9 SP ASTHMA, UNCOMPLICATED SP 07/21/2019 GRACIA ROY MD Ot K60.3 SP FISTULA SP 07/21/2019 GRACIA ROY MD Ot K62.5 SP OF ANUS AND RECTUM SP 07/21/2019 GRACIA ROY MD Ot K62.89 SP SPECIFIED DISEASES OF ANUS AND REC SP 07/21/2019 GRACIA ROY MD Ot K64.1 SP DEGREE HEMORRHOIDS SP 07/21/2019 GRACIA ROY MD Ot K64.2 SP DEGREE HEMORRHOIDS SP 07/21/2019 GRACIA ROY MD Ot K64.8 SP HEMORRHOIDS SP 07/21/2019 GRACIA ROY MD Ot Z79.89 1 SP TERM (CURRENT) USE OF OPIATE ANALGE SP 07/21/2019 GRACIA ROY MD Ot 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 SP 07/21/2019 GRACIA ROY MD Ot Z82.49 SP HX OF ISCHEM HEART DIS AND OTH DI SP 07/21/2019 GRACIA ROY MD Ot Z83.3 SP HISTORY OF DIABETES MELLITUS SP 07/21/2019 GRACIA ROY MD Ot Z87.89 1 SP HISTORY OF NICOTINE DEPENDENCE SP Procedures Code Description Performed By Per katalina On POS [id number] RE PLACE OF R KNEE JT WITH JANA ARANDA CEM 02/15/2019 SP Results Test Result Range POS [id number] - 10/11/17 08:12 POS Serum or plasma urea nitrogen measurement (mass/volume ) 9 mg/dL SP 7-18 SP Serum or plasma creatinine measurement (mass/volume) 0.69 mg/dL SP 0.60-1.30 SP Serum or plasma urea nitrogen/creatinine mass ratio 13 NRG SP Serum or plasma creatinine measurement w ith calculation of estimated glomerular SP rate > NRG SP Complete urinalysis with reflex to cultu re - 12/04/17 17:17 POS Urine color determination YELLOW NRG SP Urine clarity determination CLEAR NR G SP Urine pH measurement by test strip 8 5-9 SP Specific gravity of urine by test strip 1.015 1.016-1.022 SP Urine protein assay by test strip, semi-quantitative NEGATIVE SP NEGATIVE SP Urine glucose detection by automated test strip NE GATIVE SP Erythrocytes detection in urine sediment by light micr oscopy NEGATIVE SP NEGATIVE SP Urine ketones detection by automated test strip NE GATIVE SP Urine nitrite detection by test strip NEGATIVE NEGATIVE SP Urine total bilirubin detection by test strip NEGA TIVE SP Urine urobilinogen measurement by automated test strip (mass/volume) SP NORMAL SP Urine leukocyte esterase detection by dipstick NEG ATIVE SP Automated urine sediment erythrocyte cou nt by microscopy (number/high power SP RARE NRG SP Automated urine sediment leukocyte count by microscopy (number/high power field) SP RARE NRG SP Bacteria detection in urine sediment by light microsco py NEGATIVE SP NRG SP Squamous epithelial cells detection in u rine sediment by light microscopy SP 25-50 NRG SP Crystals detection in urine sediment by light microsco py NONE SP NRG SP Casts detection in urine sediment by light microscopy NONE SP Mucus detection in urine sediment by light microscopy SMALL SP NRG SP Complete urinalysis with reflex to culture NO NRG SP Renal epithelial cells detection in urin e sediment by light microscopy SP NONE NRG SP Urine drug screening test - 12/04/17 17: 17 POS Urine phencyclidine detection by screening method NEGATIVE SP Urine benzodiazepines detection by screening method POSITIVE SP NEGATIVE SP Urine cocaine detection NEGATIVE NEGATI VE SP Urine amphetamines detection by screening method N EGATIVE SP Urine methamphetamine detection by screening method NEGATIVE SP NEGATIVE SP Urine cannabinoids detection by screening method N EGATIVE SP Urine opiates detection by screening method NEGATI VE SP Urine barbiturates detection NEGATIVE N EGATIVE SP Screening urine tricyclic antidepressants detection NEGATIVE SP NEGATIVE SP Urine methadone detection by screening method NEGA TIVE SP Urine oxycodone detection POSITIVE NEGA TIVE SP Urine propoxyphene detection NEGATIVE N EGATIVE SP Complete blood count (CBC) with automate d white blood cell (WBC) differential - POS 18:35 Blood leukocytes automated count (number/volume) 10.8 10*3/uL POS 4.3-11.0 SP Blood erythrocytes automated count (number/volume) 4.15 10*6/uL SP 4.35-5.85 SP Venous blood hemoglobin measurement (mass/volume) 12.9 g/dL SP16.0 Blood hematocrit (volume fraction) 37 % 35-52 SP Automated erythrocyte mean corpuscular volume 89 [ foz_us] SP99 Automated erythrocyte mean corpuscular h emoglobin (mass per erythrocyte) SP 31 pg 25-34 SP Automated erythrocyte mean corpuscular h emoglobin concentration measurement SP 35 g/dL 32-36 SP Automated erythrocyte distribution width ratio 13. 3 % 10.0- SP Automated blood platelet count (count/volume) 253 10*3/uL SP400 Automated blood platelet mean volume measurement 8.8 [foz_us] SP 7.4-10.4 SP Automated blood neutrophils/100 leukocytes 68 % 42-75 SP Automated blood lymphocytes/100 leukocytes 16 % 12-44 SP Blood monocytes/100 leukocytes 13 % 0-12 SP Automated blood eosinophils/100 leukocytes 2 % 0-10 SP Automated blood basophils/100 leukocytes 0 % 0-10 SP Blood neutrophils automated count (number/volume) 7.4 10*3 SP7.8 Blood lymphocytes automated count (number/volume) 1.8 10*3 SP4.0 Blood monocytes automated count (number/volume) 1. 4 10*3 SP1.0 Automated eosinophil count 0.2 10*3/uL 0 .0-0.3 SP Automated blood basophil count (count/volume) 0.0 10*3/uL SP0.1 PT panel in platelet poor plasma by coag ulation assay - 12/04/17 18:35 POS Prothrombin time (PT) in platelet poor plasma by coagu lation assay SP s 12.2-14.7 SP INR in platelet poor plasma or blood by coagulation as say 1.0 SP 0.8-1.4 SP Activated partial thromboplastin time (a PTT) in platelet poor plasma POS assay - 12/04/17 18:35 Activated partial thromboplastin time (a PTT) in platelet poor plasma POS assay 29 s 24-35 SP Comprehensive metabolic panel - 12/04/17 18:35 POS Serum or plasma sodium measurement (moles/volume) 137 mmol/L SP 135-145 SP Serum or plasma potassium measurement (moles/volume) 4.4 mmol/L SP 3.6-5.0 SP Serum or plasma chloride measurement (moles/volume) 106 mmol/L SP 98-107 SP Carbon dioxide 23 mmol/L 21-32 SP Serum or plasma anion gap determination (moles/volume) 8 mmol/L SP 5-14 SP Serum or plasma urea nitrogen measurement (mass/volume ) 8 mg/dL SP 7-18 SP Serum or plasma creatinine measurement (mass/volume) 0.63 mg/dL SP 0.60-1.30 SP Serum or plasma urea nitrogen/creatinine mass ratio 13 NRG SP Serum or plasma creatinine measurement w ith calculation of estimated glomerular SP rate > NRG SP Serum or plasma glucose measurement (mass/volume) 101 mg/dL SP105 Serum or plasma calcium measurement (mass/volume) 8.7 mg/dL SP10.1 Serum or plasma total bilirubin measurement (mass/volu me) 0.4 mg/dL SP 0.1-1.0 SP Serum or plasma alkaline phosphatase jarett surement (enzymatic activity/volume) SP 60 U/L 40-136 SP Serum or plasma aspartate aminotransfera se measurement (enzymatic SP 31 U/L 5-34 SP Serum or plasma alanine aminotransferase measurement (enzymatic activity/volume) SP 32 U/L 0-55 SP Serum or plasma protein measurement (mass/volume) 6.0 g/dL SP8.2 Serum or plasma albumin measurement (mass/volume) 3.5 g/dL SP4.5 Magnesium - 18 18:35 POS Magnesium 1.9 mg/dL 1.8-2.4 SP Serum or plasma lithium measurement (mol es/volume) - 18 18:35 POS BNP level < pg/mL <100.0 SP Serum or plasma troponin i.cardiac measu rement (mass/volume) - 18 18:35 POS Serum or plasma troponin i.cardiac measurement (mass/v olume) < ng/mL POS <0.30 SP Serum or plasma thyrotropin measurement by detection limit <=0.05 miu/l POS - 18 18:35 Serum or plasma thyrotropin measurement by detection limit <=0.05 miu/l POS 0.38 u[iU]/mL 0.35-4.94 SP Methicillin resistant Staphylococcus aur eus (MRSA) screening culture - 02/07/19 POS Methicillin resistant Staphylococcus aureus (MRSA) scr eening culture POS NRG SP Complete blood count (CBC) with automate d white blood cell (WBC) differential - POS 13:35 Blood leukocytes automated count (number/volume) 7.2 10*3/uL POS 4.3-11.0 SP Blood erythrocytes automated count (number/volume) 5.10 10*6/uL SP 4.35-5.85 SP Venous blood hemoglobin measurement (mass/volume) 15.4 g/dL SP16.0 Blood hematocrit (volume fraction) 44 % 35-52 SP Automated erythrocyte mean corpuscular volume 85 [ foz_us] SP99 Automated erythrocyte mean corpuscular h emoglobin (mass per erythrocyte) SP 30 pg 25-34 SP Automated erythrocyte mean corpuscular h emoglobin concentration measurement SP 35 g/dL 32-36 SP Automated erythrocyte distribution width ratio 13. 0 % 10.0- SP Automated blood platelet count (count/volume) 244 10*3/uL SP400 Automated blood platelet mean volume measurement 9.3 [foz_us] SP 7.4-10.4 SP Automated blood neutrophils/100 leukocytes 47 % 42-75 SP Automated blood lymphocytes/100 leukocytes 37 % 12-44 SP Blood monocytes/100 leukocytes 13 % 0-12 SP Automated blood eosinophils/100 leukocytes 2 % 0-10 SP Automated blood basophils/100 leukocytes 1 % 0-10 SP Blood neutrophils automated count (number/volume) 3.4 10*3 SP7.8 Blood lymphocytes automated count (number/volume) 2.7 10*3 SP4.0 Blood monocytes automated count (number/volume) 1. 0 10*3 SP1.0 Automated eosinophil count 0.2 10*3/uL 0 .0-0.3 SP Automated blood basophil count (count/volume) 0.0 10*3/uL SP0.1 Comprehensive metabolic panel - 02/07/19 13:35 POS Serum or plasma sodium measurement (moles/volume) 141 mmol/L SP 135-145 SP Serum or plasma potassium measurement (moles/volume) 4.1 mmol/L SP 3.6-5.0 SP Serum or plasma chloride measurement (moles/volume) 103 mmol/L SP 98-107 SP Carbon dioxide 26 mmol/L 21-32 SP Serum or plasma anion gap determination (moles/volume) 12 mmol/L SP 5-14 SP Serum or plasma urea nitrogen measurement (mass/volume ) 11 mg/dL SP 7-18 SP Serum or plasma creatinine measurement (mass/volume) 0.75 mg/dL SP 0.60-1.30 SP Serum or plasma urea nitrogen/creatinine mass ratio 15 NRG SP Serum or plasma creatinine measurement w ith calculation of estimated glomerular SP rate > NRG SP Serum or plasma glucose measurement (mass/volume) 112 mg/dL SP105 Serum or plasma calcium measurement (mass/volume) 9.8 mg/dL SP10.1 Serum or plasma total bilirubin measurement (mass/volu me) 0.4 mg/dL SP 0.1-1.0 SP Serum or plasma alkaline phosphatase jarett surement (enzymatic activity/volume) SP 78 U/L 40-136 SP Serum or plasma aspartate aminotransfera se measurement (enzymatic SP 32 U/L 5-34 SP Serum or plasma alanine aminotransferase measurement (enzymatic activity/volume) SP 45 U/L 0-55 SP Serum or plasma protein measurement (mass/volume) 7.3 g/dL SP8.2 Serum or plasma albumin measurement (mass/volume) 4.2 g/dL SP4.5 CALCIUM CORRECTED 9.6 mg/dL 8.5-10.1 SP PT panel in platelet poor plasma by coag ulation assay - 02/07/19 13:35 POS Prothrombin time (PT) in platelet poor plasma by coagu lation assay SP s 12.2-14.7 SP INR in platelet poor plasma or blood by coagulation as say 0.9 SP 0.8-1.4 SP Erythrocyte sedimentation rate by sarah gren method - 02/07/19 13:35 POS Erythrocyte sedimentation rate by westergren method 3 mm 0- SP Blood type T Indirect antibody screen pa naldo - 02/07/19 13:35 POS ABO+Rh group ON NRG SP Blood group antibody screen NEGATIVE NR G SP Complete urinalysis with reflex to cultu re - 02/07/19 13:55 POS Urine color determination YELLOW NRG SP Urine clarity determination CLEAR NR G SP Urine pH measurement by test strip 7 5-9 SP Specific gravity of urine by test strip 1.010 1.016-1.022 SP Urine protein assay by test strip, semi-quantitative NEGATIVE SP NEGATIVE SP Urine glucose detection by automated test strip NE GATIVE SP Erythrocytes detection in urine sediment by light micr oscopy NEGATIVE SP NEGATIVE SP Urine ketones detection by automated test strip NE GATIVE SP Urine nitrite detection by test strip NEGATIVE NEGATIVE SP Urine total bilirubin detection by test strip NEGA TIVE SP Urine urobilinogen measurement by automated test strip (mass/volume) SP NORMAL SP Urine leukocyte esterase detection by dipstick 1+ NEGATIVE SP Automated urine sediment erythrocyte cou nt by microscopy (number/high power SP NONE NRG SP Automated urine sediment leukocyte count by microscopy (number/high power field) SP RARE NRG SP Bacteria detection in urine sediment by light microsco py TRACE SP NRG SP Squamous epithelial cells detection in u rine sediment by light microscopy SP 5-10 NRG SP Crystals detection in urine sediment by light microsco py NONE SP NRG SP Casts detection in urine sediment by light microscopy NONE SP Mucus detection in urine sediment by light microscopy NEGATIVE SP NRG SP Complete urinalysis with reflex to culture NO NRG SP Blood type T Indirect antibody screen pa naldo - 02/15/19 06:25 POS ABO+Rh group ON NRG SP Transfusion band number [id number] NRG SP Blood group antibody screen NEGATIVE NR G SP Complete blood count (CBC) with automate d white blood cell (WBC) differential - POS 05:30 Blood leukocytes automated count (number/volume) 13.9 10*3/uL POS 4.3-11.0 SP Blood erythrocytes automated count (number/volume) 3.97 10*6/uL SP 4.35-5.85 SP Venous blood hemoglobin measurement (mass/volume) 12.0 g/dL SP16.0 Blood hematocrit (volume fraction) 36 % 35-52 SP Automated erythrocyte mean corpuscular volume 91 [ foz_us] SP99 Automated erythrocyte mean corpuscular h emoglobin (mass per erythrocyte) SP 30 pg 25-34 SP Automated erythrocyte mean corpuscular h emoglobin concentration measurement SP 33 g/dL 32-36 SP Automated erythrocyte distribution width ratio 13. 0 % 10.0- SP Automated blood platelet count (count/volume) 220 10*3/uL SP400 Automated blood platelet mean volume measurement 9.4 [foz_us] SP 7.4-10.4 SP Automated blood neutrophils/100 leukocytes 76 % 42-75 SP Automated blood lymphocytes/100 leukocytes 13 % 12-44 SP Blood monocytes/100 leukocytes 11 % 0-12 SP Automated blood eosinophils/100 leukocytes 0 % 0-10 SP Automated blood basophils/100 leukocytes 0 % 0-10 SP Blood neutrophils automated count (number/volume) 10.5 10*3 SP7.8 Blood lymphocytes automated count (number/volume) 1.8 10*3 SP4.0 Blood monocytes automated count (number/volume) 1. 6 10*3 SP1.0 Automated eosinophil count 0.0 10*3/uL 0 .0-0.3 SP Automated blood basophil count (count/volume) 0.0 10*3/uL SP0.1 Hemoglobin A1c - 02/16/19 05:30 POS Blood hemoglobin A1C measurement (mass/volume) 6.9 % 4.0-5.6 SP MEAN BLOOD GLUCOSE 151 % <=126 SP Capillary blood glucose measurement by g lucometer (mass/volume) - 02/16/19 05:48 POS Capillary blood glucose measurement by glucometer (mas s/volume) 301 POS 70-110 SP Comprehensive metabolic panel - 02/16/19 06:10 POS Serum or plasma sodium measurement (moles/volume) 136 mmol/L SP 135-145 SP Serum or plasma potassium measurement (moles/volume) 4.0 mmol/L SP 3.6-5.0 SP Serum or plasma chloride measurement (moles/volume) 103 mmol/L SP 98-107 SP Carbon dioxide 26 mmol/L 21-32 SP Serum or plasma anion gap determination (moles/volume) 7 mmol/L SP 5-14 SP Serum or plasma urea nitrogen measurement (mass/volume ) 14 mg/dL SP 7-18 SP Serum or plasma creatinine measurement (mass/volume) 0.79 mg/dL SP 0.60-1.30 SP Serum or plasma urea nitrogen/creatinine mass ratio 18 NRG SP Serum or plasma creatinine measurement w ith calculation of estimated glomerular SP rate > NRG SP Serum or plasma glucose measurement (mass/volume) 284 mg/dL SP105 Serum or plasma calcium measurement (mass/volume) 8.3 mg/dL SP10.1 Serum or plasma total bilirubin measurement (mass/volu me) 0.2 mg/dL SP 0.1-1.0 SP Serum or plasma alkaline phosphatase jarett surement (enzymatic activity/volume) SP 83 U/L 40-136 SP Serum or plasma aspartate aminotransfera se measurement (enzymatic SP 26 U/L 5-34 SP Serum or plasma alanine aminotransferase measurement (enzymatic activity/volume) SP 42 U/L 0-55 SP Serum or plasma protein measurement (mass/volume) 6.4 g/dL SP8.2 Serum or plasma albumin measurement (mass/volume) 3.8 g/dL SP4.5 CALCIUM CORRECTED 8.5 mg/dL 8.5-10.1 SP Capillary blood glucose measurement by g lucometer (mass/volume) - 02/16/19 16:05 POS Capillary blood glucose measurement by glucometer (mas s/volume) 166 POS 70-110 SP Capillary blood glucose measurement by g lucometer (mass/volume) - 02/16/19 22:03 POS Capillary blood glucose measurement by glucometer (mas s/volume) 144 POS 70-110 SP Capillary blood glucose measurement by g lucometer (mass/volume) - 02/17/19 04:53 POS Capillary blood glucose measurement by glucometer (mas s/volume) 157 POS 70-110 SP Complete blood count (CBC) with automate d white blood cell (WBC) differential - POS 06:31 Blood leukocytes automated count (number/volume) 10.8 10*3/uL POS 4.3-11.0 SP Blood erythrocytes automated count (number/volume) 3.98 10*6/uL SP 4.35-5.85 SP Venous blood hemoglobin measurement (mass/volume) 11.9 g/dL SP16.0 Blood hematocrit (volume fraction) 35 % 35-52 SP Automated erythrocyte mean corpuscular volume 87 [ foz_us] SP99 Automated erythrocyte mean corpuscular h emoglobin (mass per erythrocyte) SP 30 pg 25-34 SP Automated erythrocyte mean corpuscular h emoglobin concentration measurement SP 34 g/dL 32-36 SP Automated erythrocyte distribution width ratio 13. 0 % 10.0- SP Automated blood platelet count (count/volume) 184 10*3/uL SP400 Automated blood platelet mean volume measurement 9.6 [foz_us] SP 7.4-10.4 SP Automated blood neutrophils/100 leukocytes 68 % 42-75 SP Automated blood lymphocytes/100 leukocytes 17 % 12-44 SP Blood monocytes/100 leukocytes 15 % 0-12 SP Automated blood eosinophils/100 leukocytes 1 % 0-10 SP Automated blood basophils/100 leukocytes 0 % 0-10 SP Blood neutrophils automated count (number/volume) 7.3 10*3 SP7.8 Blood lymphocytes automated count (number/volume) 1.8 10*3 SP4.0 Blood monocytes automated count (number/volume) 1. 6 10*3 SP1.0 Automated eosinophil count 0.1 10*3/uL 0 .0-0.3 SP Automated blood basophil count (count/volume) 0.0 10*3/uL SP0.1 Comprehensive metabolic panel - 02/17/19 06:34 POS Serum or plasma sodium measurement (moles/volume) 134 mmol/L SP 135-145 SP Serum or plasma potassium measurement (moles/volume) 3.7 mmol/L SP 3.6-5.0 SP Serum or plasma chloride measurement (moles/volume) 99 mmol/L SP 98-107 SP Carbon dioxide 27 mmol/L 21-32 SP Serum or plasma anion gap determination (moles/volume) 8 mmol/L SP 5-14 SP Serum or plasma urea nitrogen measurement (mass/volume ) 7 mg/dL SP 7-18 SP Serum or plasma creatinine measurement (mass/volume) 0.61 mg/dL SP 0.60-1.30 SP Serum or plasma urea nitrogen/creatinine mass ratio 11 NRG SP Serum or plasma creatinine measurement w ith calculation of estimated glomerular SP rate > NRG SP Serum or plasma glucose measurement (mass/volume) 142 mg/dL SP105 Serum or plasma calcium measurement (mass/volume) 8.7 mg/dL SP10.1 Serum or plasma total bilirubin measurement (mass/volu me) 0.6 mg/dL SP 0.1-1.0 SP Serum or plasma alkaline phosphatase jarett surement (enzymatic activity/volume) SP 80 U/L 40-136 SP Serum or plasma aspartate aminotransfera se measurement (enzymatic SP 30 U/L 5-34 SP Serum or plasma alanine aminotransferase measurement (enzymatic activity/volume) SP 37 U/L 0-55 SP Serum or plasma protein measurement (mass/volume) 6.4 g/dL SP8.2 Serum or plasma albumin measurement (mass/volume) 3.7 g/dL SP4.5 CALCIUM CORRECTED 8.9 mg/dL 8.5-10.1 SP Capillary blood glucose measurement by g lucometer (mass/volume) - 02/17/19 15:46 POS Capillary blood glucose measurement by glucometer (mas s/volume) 162 POS 70-110 SP Capillary blood glucose measurement by g lucometer (mass/volume) - 02/17/19 21:11 POS Capillary blood glucose measurement by glucometer (mas s/volume) 169 POS 70-110 SP Capillary blood glucose measurement by g lucometer (mass/volume) - 02/18/19 05:48 POS Capillary blood glucose measurement by glucometer (mas s/volume) 137 POS 70-110 SP Whole blood hemoglobin and hematocrit pa naldo - 02/18/19 06:30 POS Venous blood hemoglobin measurement (mass/volume) 12.2 g/dL SP16.0 Blood hematocrit (volume fraction) 36 % 35-52 SP Methicillin resistant Staphylococcus aur eus (MRSA) screening culture - 07/21/19 POS Methicillin resistant Staphylococcus aureus (MRSA) scr eening culture POS NRG SP Encounters ACCT No. Visit Date/Time Discharge Status POS Pt. Type Provider Facility Loc./Un it POS Complaint POS [id number] 06/28/2014 09:22:00 06/28/2014 23:59: 59 CLS SP Outpatient STACEY FREEMAN APRN SP SP [id number] 07/21/2019 07:10:00 12:15:00 SP DIS Outpatient GRACIA ROY MD [facility] SDC ANAL FISTULA, RECTAL PAIN, B LOOD IN STOOL SP [id number] 07/20/2019 05:34:00 23:59:59 SP CLS Outpatient GRACIA ROY MD [facility] PREOP ANAL FISTULA, RECTAL PAIN, B LOOD IN SP [id number] 02/15/2019 05:59:00 12:36:00 SP DIS Inpatient MARTINEZ SAUCEDO MD [facility] 4TH OSTEOARTHRITIS RIGHT KNEE SP [id number] 02/07/2019 12:45:00 14:00:00 SP DIS Outpatient MARTINEZ SAUCEDO MD [facility] PREOP OSTEOARTHRITIS RIGHT KNEE SP [id number] 12/04/2017 16:22:00 21:42:00 SP DIS Emergency TIFFANY DO, SIOMARA Dean a [facility] ER LEGS SWOLLEN SP [id number] 10/13/2017 14:54:00 018 23:59:59 SP CLS Outpatient RENU WATERS DO [facility] RAD S14.15,S24.119A SP [id number] 10/11/2017 08:03:00 018 23:59:59 SP CLS Outpatient RENU WATERS DO [facility] RAD S14.15,S24.119A SP [id number] 10/05/2017 15:06:00 018 23:59:59 SP CLS Preadmit RENU WATERS DO [facility] RAD S14.15,S24.119A SP [id number] 09/30/2017 15:14:00 018 23:59:59 SP CLS Outpatient PAULA ENGLISH MD [facility] RAD MYELOPATHY SP [id number] 09/16/2017 15:49:00 017 23:59:[address] [facility] RAD PARISH LEG PAIN SP [id number] 06/11/2017 20:52:00 017 06:05:00 SP DIS Outpatient MARTINEZ JERNIGAN MD [facility] SLEEP OENLIA G47.33 SP [id number] 06/11/2016 16:17:00 016 23:59:59 SP CLS Outpatient MARTINEZ SAUCEDO MD [facility] RAD LUMBAR SPINAL STENOS IS SP [id number] 02/02/2016 21:27:00 016 09:50:00 SP DIS Inpatient NESSA MULLER MD [facility] CSD SP [id number] 11/13/2013 13:52:00 014 23:59:59 SP CLS Outpatient NESSA MULLER MD [facility] CARD SP [id number] 11/01/2013 06:34:00 014 23:59:59 SP CLS Outpatient NESSA MULLER MD [facility] RAD SP [id number] 10/29/2013 15:19:00 014 17:16:00 SP DIS Emergency FREDIS GAUTHIER, DENNIS Cervantes [facility] [id number] 07/10/2013 20:53:00 013 16:55:00 SP DIS Outpatient ROCHELLE WHITTAKER [facility] SP
== END 2019-07-21 12:15 | disposition home or self-care (01) ==
LOC: SDC 07:10
PROVIDERS: ATTEND Surgery
DX: K62.89 Other specified diseases of anus and rectum (principal); K62.5 Hemorrhage of anus and rectum; K64.8 Other hemorrhoids; K60.3 Anal fistula; K64.1 Second degree hemorrhoids; K64.2 Third degree hemorrhoids; E78.5 Hyperlipidemia, unspecified; E78.00 Pure hypercholesterolemia, unspecified; I10 Essential (primary) hypertension; J45.909 Unspecified asthma, uncomplicated; G47.33 Obstructive sleep apnea (adult) (pediatric); G62.9 Polyneuropathy, unspecified; F39 Unspecified mood [affective] disorder; Z87.891 Personal history of nicotine dependence; Z79.891 Long term (current) use of opiate analgesic; Z79.899 Other long term (current) drug therapy; Z83.3 Family history of diabetes mellitus; Z82.49 Family history of ischemic heart disease and other diseases of the circulatory system
CPT/HCPCS: 87081

== ENCOUNTER 2019-09-26 09:50 | Outpatient (CLI) | payer BC ==
[~2019-09-26] VITALS: Ht 166 cm; Wt 63.6 kg
[~2019-09-26 09:50] MED LIST changes: +HYDR-3816 PO; -SIMV40TA25 PO; +SIMV40TA4 PO
== END 2019-09-26 10:32 | disposition home or self-care (01) ==
LOC: PREOP 09:50
PROVIDERS: ATTEND Surgery
DX: Z01.818 Encounter for other preprocedural examination (principal)

== ENCOUNTER → 2019-09-27 | Outpatient (CLI) | payer BC ==
[~2019-09-27] MED LIST changes: +HOLD METFORMIN - RECEIVED CONTRAST 20 ML VIAL IV SCH; +IOHEXOL 350 MG/ML 100 ML (OMNIPAQUE 350) VIAL IV ONE; +NS 100 ML (IVPB) BAG IV ONE
--- NOTE | 2019-09-27 14:49 | Diagnostic Imaging Report ---
PROCEDURE: CT abdomen and pelvis without contrast. TECHNIQUE: Multiple contiguous axial images were obtained through the abdomen and pelvis without the use of intravenous contrast. Auto Exposure Controls were utilized during the CT exam to meet ALARA standards for radiation dose reduction. INDICATION: Proctitis versus Crohn's disease. COMPARISON: Correlation is made with prior CT from 07/31/2010. FINDINGS: The lung bases are clear. The liver and gallbladder are unremarkable. No biliary ductal dilatation is seen. The pancreas is unremarkable. Low density within the spleen is stable when compared with prior exam. There is no adrenal mass. Cortical low density in the medial right kidney is seen, too small to characterize but likely a cyst. This measures 13 mm. No calculi are detected. There is no hydronephrosis. Aorta is nonaneurysmal. No central retroperitoneal or mesenteric lymphadenopathy is detected. The small and large bowel loops are normal in caliber. Appendix is visualized in the right lower quadrant and appears unremarkable. There is no obstruction. No definite bowel wall thickening is identified. Specifically, the rectum is unremarkable. Terminal ileum and colon are unremarkable. There is no free fluid or fluid collection. Partially filled urinary bladder is unremarkable. IMPRESSION: Essentially unremarkable noncontrast CT of the abdomen and pelvis. No acute abnormality is detected. Dictated by: Dictated on workstation # [id number]
== END ==
LOC: RAD 13:39
PROVIDERS: ATTEND Surgery
DX: K62.89 Other specified diseases of anus and rectum (principal)
CPT/HCPCS: 74176

== ENCOUNTER → 2020-07-10 | Outpatient (CLI) | payer BC ==
[~2020-07-10] MED LIST changes: +CATHETER FLUSH 10 ML SYR IV PRN; +HYDR-34 PO; -HYDR-3816 PO; +SIMV40TA25 PO; -SIMV40TA4 PO
--- NOTE | 2020-07-10 15:40 | Diagnostic Imaging Report ---
PROCEDURE: CT abdomen and pelvis with and without contrast. TECHNIQUE: Precontrast acquisitions were acquired through the abdomen and pelvis. Multiple contiguous axial images were obtained through the abdomen and pelvis after the administration of intravenous contrast. Auto Exposure Controls were utilized during the CT exam to meet ALARA standards for radiation dose reduction. INDICATION: Ulcerative colitis with history of fistula. Rectal bleeding. Two days of bloody diarrhea. Left flank pain. COMPARISON: Abdominal/pelvic CT of 09/27/2019. FINDINGS: There is some mild thickening of the loomis of the colon at the transverse and descending level. There is some prominence of the mesenteric vascularity at the distal descending as well as sigmoid colon. The findings are likely attributed to the provided history of ulcerative colitis and active mid to distal large bowel involvement is suspected. There is no air within the urinary bladder lumen. There is no abscess. No appreciable fistula. No small or large bowel obstruction. No pneumatosis. The vascular structures are patent. There is no adnexal lesion. The appendix appears normal. There is no diverticulitis. The liver parenchyma is unremarkable. No dilatation or irregularity of the intra or extrahepatic bile ducts. The gallbladder is surgically absent. There is a tiny splenic cyst noted incidentally. The spleen size is normal. The lung bases and the bony structures are nonacute. IMPRESSION: Likely mid to distal colitis and inflammatory changes of the sigmoid in keeping with the provided history of ulcerative colitis. No demonstrated fistula, abscess, obstruction, or free air. No acute or suspect hepatobiliary abnormality with nonfocal unobstructed urinary tracts. Dictated by: Dictated on workstation # [id number]
== END ==
LOC: RAD 14:49
PROVIDERS: ATTEND Nurse Practitioner Family
DX: K51.913 Ulcerative colitis, unspecified with fistula (principal)
CPT/HCPCS: 74178

== ENCOUNTER 2020-08-07 12:37 | Outpatient (RCR) | payer BC ==
[~2020-08-07] VITALS: Ht 166.4 cm; Wt 98.2 kg
[~2020-08-07 12:37] MED LIST changes: +AMLO-250 PO; -AMLO5TAB9 PO; -CATHETER FLUSH 10 ML SYR IV PRN; -HOLD METFORMIN - RECEIVED CONTRAST 20 ML VIAL IV SCH; -IOHEXOL 350 MG/ML 100 ML (OMNIPAQUE 350) VIAL IV ONE; -NS 100 ML (IVPB) BAG IV ONE
[2020-08-07] MEDS ORDERED: FERRIC CARBOXYMALTOSE INJ 750 MG in NS (IVPB) 250 ML IV ONE (13:00)
[2020-08-07 15:20] VITALS: BP 124/67
== END 2020-08-07 15:20 | disposition home or self-care (01) ==
LOC: SDC 12:37
PROVIDERS: ATTEND Pediatrics
DX: K51.911 Ulcerative colitis, unspecified with rectal bleeding (principal); D50.0 Iron deficiency anemia secondary to blood loss (chronic)
CPT/HCPCS: 96365

== ENCOUNTER 2020-08-23 07:45 | Outpatient (CLI) | payer BC ==
[~2020-08-23] VITALS: Ht 166 cm; Wt 93000.0 kg
[2020-08-23] MEDS ORDERED: ACETAMINOPHEN 500 MG TAB (TYLENOL) ONE (08:20)
[2020-08-23] MEDS ORDERED: diphenhydrAMINE 25 MG TAB (BENADRYL) PO ONE (08:21)
[2020-08-23 08:28] VITALS: BP 127/80
[2020-08-23] MEDS ORDERED: diphenhydrAMINE 50 MG/ML INJ (BENADRYL) IV PRN (08:45)
[2020-08-23] MEDS ORDERED: diphenhydrAMINE 50 MG/ML INJ (BENADRYL) IV SCH (08:45)
[2020-08-23] MEDS ORDERED: methylPREDNISolone 125 MG (Solu-MEDROL) VIAL IV PRN (08:45)
[2020-08-23] MEDS ORDERED: ACETAMINOPHEN 500 MG TAB (TYLENOL) PO PRN (08:45)
[2020-08-23] MEDS ORDERED: CATHETER FLUSH 10 ML SYR IV PRN (08:45)
[2020-08-23] MEDS ORDERED: ACETAMINOPHEN 500 MG TAB (TYLENOL) PO SCH (08:45)
[2020-08-23] MEDS ORDERED: EPINEPHrine INJECTION 1 MG/ML AMP IM PRN (08:45)
[2020-08-23] MEDS ORDERED: inFLIXimab 500 MG/NS 250 ML (EXCEL) IV SCH ×2 (08:45)
[2020-08-23 11:21] VITALS: BP 127/80
== END 2020-08-23 11:05 | disposition home or self-care (01) ==
LOC: SDC 07:45
PROVIDERS: ATTEND Internal Medicine
DX: K50.90 Crohn's disease, unspecified, without complications (principal); K52.9 Noninfective gastroenteritis and colitis, unspecified
CPT/HCPCS: 96365; 96366

== ENCOUNTER → 2020-11-14 | Outpatient (CLI) | payer BC ==
[~2020-11-14] MED LIST changes: +ACETAMINOPHEN 500 MG TAB (TYLENOL) PO PRN; +ACETAMINOPHEN 500 MG TAB (TYLENOL) PO SCH; +CATHETER FLUSH 10 ML SYR IV PRN; +EPINEPHrine INJECTION 1 MG/ML AMP IM PRN; -OXYC-471 PO; +OXYC1TAB11 PO; +diphenhydrAMINE 50 MG/ML INJ (BENADRYL) IV PRN; +diphenhydrAMINE 50 MG/ML INJ (BENADRYL) IV SCH; +inFLIXimab 500 MG/NS 250 ML (EXCEL) IV SCH; +methylPREDNISolone 125 MG (Solu-MEDROL) VIAL IV PRN
[2020-11-14 08:50] LABS: BASOPHILS % (AUTO) 0 % (0-10); EOSINOPHILS # (AUTO) 0.2 10^3/uL (0.0-0.3); EOSINOPHILS % (AUTO) 2 % (0-10); HEMATOCRIT 35 % (35-52); HEMOGLOBIN 10.9 g/dL (11.5-16.0); LYMPHOCYTES # (AUTO) 3.8 10^3/uL (1.0-4.0); LYMPHOCYTES % (AUTO) 52 % (12-44); MEAN CORPUSCULAR HEMOGLOBIN 27 pg (25-34); MEAN CORPUSCULAR HGB CONC 31 g/dL (32-36); MEAN CORPUSCULAR VOLUME 87 fL (80-99); MEAN PLATELET VOLUME 8.4 fL (9.0-12.2); MONOCYTES # (AUTO) 0.8 10^3/uL (0.0-1.0); MONOCYTES % (AUTO) 11 % (0-12); NEUTROPHILS # (AUTO) 2.6 10^3/uL (1.8-7.8); NEUTROPHILS % (AUTO) 35 % (42-75); PLATELET COUNT 304 10^3/uL (130-400); WHITE BLOOD COUNT 7.4 10^3/uL (4.3-11.0)
[2020-11-14 09:05] LABS: ALANINE AMINOTRANSFERASE 23 U/L (0-55); ALBUMIN 3.8 GM/DL (3.2-4.5); ALKALINE PHOSPHATASE 46 U/L (40-136); BILIRUBIN,TOTAL 0.3 MG/DL (0.1-1.0); BUN/CREATININE RATIO 18; CALCIUM 8.6 MG/DL (8.5-10.1); CARBON DIOXIDE 20 MMOL/L (21-32); CHLORIDE 110 MMOL/L (98-107); CREATININE SERUM 0.79 MG/DL (0.60-1.30); GFR ESTIMATED > 60; GLUCOSE 96 MG/DL (70-105); POTASSIUM 4.1 MMOL/L (3.6-5.0); SODIUM 139 MMOL/L (135-145); TOTAL PROTEIN 6.8 GM/DL (6.4-8.2)
== END ==
LOC: LAB 08:16
PROVIDERS: ATTEND Internal Medicine
DX: K51.00 Ulcerative (chronic) pancolitis without complications (principal)
CPT/HCPCS: 36415; 80053; 85025; 86141

== ENCOUNTER → 2020-11-15 | Outpatient (CLI) | payer BC ==
[~2020-11-15] VITALS: Ht 166.4 cm; Wt 93.0 kg
[2020-11-15 13:05] VITALS: BP 144/90
== END ==
LOC: SDC 13:25
PROVIDERS: ATTEND Internal Medicine
DX: K50.90 Crohn's disease, unspecified, without complications (principal)
CPT/HCPCS: 96374

== ENCOUNTER → 2020-11-28 | Outpatient (CLI) | payer BC ==
[~2020-11-28] MED LIST changes: -ACETAMINOPHEN 500 MG TAB (TYLENOL) PO PRN; -ACETAMINOPHEN 500 MG TAB (TYLENOL) PO SCH; -CATHETER FLUSH 10 ML SYR IV PRN; -EPINEPHrine INJECTION 1 MG/ML AMP IM PRN; -diphenhydrAMINE 50 MG/ML INJ (BENADRYL) IV PRN; -diphenhydrAMINE 50 MG/ML INJ (BENADRYL) IV SCH; -inFLIXimab 500 MG/NS 250 ML (EXCEL) IV SCH; -methylPREDNISolone 125 MG (Solu-MEDROL) VIAL IV PRN
[2020-11-28 08:43] LABS: BASOPHILS # (AUTO) 0.1 10^3/uL (0.0-0.1); BASOPHILS % (AUTO) 1 % (0-10); EOSINOPHILS # (AUTO) 0.1 10^3/uL (0.0-0.3); EOSINOPHILS % (AUTO) 2 % (0-10); HEMATOCRIT 38 % (35-52); HEMOGLOBIN 11.8 g/dL (11.5-16.0); LYMPHOCYTES # (AUTO) 4.9 10^3/uL (1.0-4.0); LYMPHOCYTES % (AUTO) 53 % (12-44); MEAN CORPUSCULAR HEMOGLOBIN 27 pg (25-34); MEAN CORPUSCULAR HGB CONC 31 g/dL (32-36); MEAN CORPUSCULAR VOLUME 89 fL (80-99); MEAN PLATELET VOLUME 8.5 fL (9.0-12.2); MONOCYTES # (AUTO) 0.7 10^3/uL (0.0-1.0); MONOCYTES % (AUTO) 8 % (0-12); NEUTROPHILS # (AUTO) 3.5 10^3/uL (1.8-7.8); NEUTROPHILS % (AUTO) 37 % (42-75); PLATELET COUNT 322 10^3/uL (130-400); WHITE BLOOD COUNT 9.4 10^3/uL (4.3-11.0)
[2020-11-28 08:53] LABS: CHLORIDE 107 MMOL/L (98-107); SODIUM 138 MMOL/L (135-145)
[2020-11-28 08:55] LABS: CALCIUM 8.7 MG/DL (8.5-10.1)
[2020-11-28 08:56] LABS: GLUCOSE 85 MG/DL (70-105); TOTAL PROTEIN 7.2 GM/DL (6.4-8.2)
[2020-11-28 08:57] LABS: BILIRUBIN,TOTAL 0.4 MG/DL (0.1-1.0); CARBON DIOXIDE 23 MMOL/L (21-32)
[2020-11-28 08:59] LABS: ALKALINE PHOSPHATASE 57 U/L (40-136); CREATININE SERUM 0.79 MG/DL (0.60-1.30); GFR ESTIMATED > 60
[2020-11-28 09:01] LABS: BUN/CREATININE RATIO 15
[2020-11-28 09:02] LABS: ALANINE AMINOTRANSFERASE 27 U/L (0-55)
== END ==
LOC: LAB 08:10
PROVIDERS: ATTEND Internal Medicine
DX: K51.00 Ulcerative (chronic) pancolitis without complications (principal)
CPT/HCPCS: 36415; 80053; 85025; 86141

== ENCOUNTER → 2020-12-20 | Outpatient (CLI) | payer BC | LOC: LABNPT 16:05 | PROVIDERS: ATTEND Internal Medicine | DX: Z01.89 Encounter for other specified special examinations (principal) ==

== ENCOUNTER → 2020-12-27 | Outpatient (CLI) | payer BC ==
[~2020-12-27] VITALS: Ht 164 cm; Wt 102.7 kg
[~2020-12-27] MED LIST changes: +ACETAMINOPHEN 500 MG TAB (TYLENOL) PO PRN; +ACETAMINOPHEN 500 MG TAB (TYLENOL) PO SCH; +EPINEPHrine INJECTION 1 MG/ML AMP SC PRN; +INFLIXIMAB IV SCH; +SODIUM CHLORIDE IV SCH; +diphenhydrAMINE 25 MG TAB (BENADRYL) PO SCH; +diphenhydrAMINE 50 MG/ML INJ (BENADRYL) IV PRN; +methylPREDNISolone 125 MG (Solu-MEDROL) VIAL IV PRN
[2020-12-27 11:40] VITALS: BP 121/66
[2020-12-27 12:26] LABS: BASOPHILS # (AUTO) 0.1 10^3/uL (0.0-0.1); BASOPHILS % (AUTO) 1 % (0-10); EOSINOPHILS # (AUTO) 0.5 10^3/uL (0.0-0.3); EOSINOPHILS % (AUTO) 4 % (0-10); HEMATOCRIT 34 % (35-52); HEMOGLOBIN 10.5 g/dL (11.5-16.0); LYMPHOCYTES # (AUTO) 3.6 10^3/uL (1.0-4.0); LYMPHOCYTES % (AUTO) 31 % (12-44); MEAN CORPUSCULAR HEMOGLOBIN 28 pg (25-34); MEAN CORPUSCULAR HGB CONC 31 g/dL (32-36); MEAN CORPUSCULAR VOLUME 90 fL (80-99); MEAN PLATELET VOLUME 8.9 fL (9.0-12.2); MONOCYTES # (AUTO) 1.4 10^3/uL (0.0-1.0); MONOCYTES % (AUTO) 12 % (0-12); NEUTROPHILS # (AUTO) 5.9 10^3/uL (1.8-7.8); NEUTROPHILS % (AUTO) 52 % (42-75); PLATELET COUNT 306 10^3/uL (130-400); WHITE BLOOD COUNT 11.5 10^3/uL (4.3-11.0)
[2020-12-27 13:08] LABS: ALBUMIN 3.5 GM/DL (3.2-4.5)
[2020-12-27 13:09] LABS: CHLORIDE 106 MMOL/L (98-107); POTASSIUM 3.9 MMOL/L (3.6-5.0); SODIUM 138 MMOL/L (135-145)
[2020-12-27 13:10] LABS: CALCIUM 8.8 MG/DL (8.5-10.1)
[2020-12-27 13:11] LABS: GLUCOSE 78 MG/DL (70-105); TOTAL PROTEIN 6.8 GM/DL (6.4-8.2)
[2020-12-27 13:12] LABS: CARBON DIOXIDE 23 MMOL/L (21-32)
[2020-12-27 13:13] LABS: BILIRUBIN,TOTAL 0.4 MG/DL (0.1-1.0)
[2020-12-27 13:14] LABS: ALKALINE PHOSPHATASE 55 U/L (40-136)
[2020-12-27 13:15] LABS: GFR ESTIMATED > 60
[2020-12-27 13:16] LABS: BUN/CREATININE RATIO 9
[2020-12-27 13:17] LABS: ALANINE AMINOTRANSFERASE 18 U/L (0-55)
== END ==
LOC: SDC 11:37
PROVIDERS: ATTEND Internal Medicine
DX: K51.90 Ulcerative colitis, unspecified, without complications (principal)
CPT/HCPCS: 36415; 80053; 85025; 96365; 96366

== ENCOUNTER 2021-02-07 11:02 | Outpatient (CLI) | payer BC ==
[~2021-02-07] VITALS: Ht 165.1 cm; Wt 104.5 kg
[~2021-02-07 11:02] MED LIST changes: -ACETAMINOPHEN 500 MG TAB (TYLENOL) PO PRN; -ACETAMINOPHEN 500 MG TAB (TYLENOL) PO SCH; -EPINEPHrine INJECTION 1 MG/ML AMP SC PRN; -INFLIXIMAB IV SCH; -SODIUM CHLORIDE IV SCH; -diphenhydrAMINE 25 MG TAB (BENADRYL) PO SCH; -diphenhydrAMINE 50 MG/ML INJ (BENADRYL) IV PRN; -methylPREDNISolone 125 MG (Solu-MEDROL) VIAL IV PRN
[2021-02-07 11:47] VITALS: BP 135/90
[2021-02-07 11:52] LABS: BASOPHILS # (AUTO) 0.1 10^3/uL (0.0-0.1); BASOPHILS % (AUTO) 1 % (0-10); EOSINOPHILS # (AUTO) 0.3 10^3/uL (0.0-0.3); EOSINOPHILS % (AUTO) 4 % (0-10); HEMATOCRIT 36 % (35-52); HEMOGLOBIN 11.3 g/dL (11.5-16.0); LYMPHOCYTES # (AUTO) 2.8 10^3/uL (1.0-4.0); LYMPHOCYTES % (AUTO) 30 % (12-44); MEAN CORPUSCULAR HEMOGLOBIN 27 pg (25-34); MEAN CORPUSCULAR HGB CONC 31 g/dL (32-36); MEAN CORPUSCULAR VOLUME 86 fL (80-99); MEAN PLATELET VOLUME 8.9 fL (9.0-12.2); MONOCYTES # (AUTO) 1.2 10^3/uL (0.0-1.0); MONOCYTES % (AUTO) 12 % (0-12); NEUTROPHILS # (AUTO) 4.9 10^3/uL (1.8-7.8); NEUTROPHILS % (AUTO) 52 % (42-75); PLATELET COUNT 351 10^3/uL (130-400); WHITE BLOOD COUNT 9.3 10^3/uL (4.3-11.0)
[2021-02-07] MEDS ORDERED: INFLIXIMAB FOR IV SCH (12:00)
[2021-02-07] MEDS ORDERED: NORMAL SALINE IV SCH (12:00)
[2021-02-07] MEDS ORDERED: CATHETER FLUSH 10 ML SYR IV ONE (12:00)
[2021-02-07] MEDS ORDERED: ACETAMINOPHEN 500 MG TAB (TYLENOL) PO SCH (12:00)
[2021-02-07] MEDS ORDERED: CATHETER FLUSH 10 ML SYR IV SCH (12:00)
[2021-02-07] MEDS ORDERED: ACETAMINOPHEN 500 MG TAB (TYLENOL) PO ONE (12:00)
[2021-02-07] MEDS ORDERED: diphenhydrAMINE 25 MG TAB (BENADRYL) PO SCH (12:00)
[2021-02-07] MEDS ORDERED: diphenhydrAMINE 25 MG TAB (BENADRYL) PO ONE (12:00)
[2021-02-07 12:08] LABS: ALANINE AMINOTRANSFERASE 16 U/L (0-55); ALBUMIN 3.5 GM/DL (3.2-4.5); ALKALINE PHOSPHATASE 74 U/L (40-136); BILIRUBIN,TOTAL 0.2 MG/DL (0.1-1.0); BUN/CREATININE RATIO 16; CALCIUM 8.7 MG/DL (8.5-10.1); CARBON DIOXIDE 28 MMOL/L (21-32); CHLORIDE 105 MMOL/L (98-107); CREATININE SERUM 0.83 MG/DL (0.60-1.30); GFR ESTIMATED > 60; GLUCOSE 163 MG/DL (70-105); POTASSIUM 3.4 MMOL/L (3.6-5.0); SODIUM 139 MMOL/L (135-145)
== END 2021-02-07 15:10 ==
LOC: SDC 11:02
PROVIDERS: ATTEND Internal Medicine
DX: K51.00 Ulcerative (chronic) pancolitis without complications (principal)
CPT/HCPCS: 36415; 80053; 85025; 96365; 96366

== ENCOUNTER → 2021-03-20 | Outpatient (CLI) | payer BC | LOC: LAB 15:37 | PROVIDERS: ATTEND Internal Medicine | DX: K51.00 Ulcerative (chronic) pancolitis without complications (principal) | CPT/HCPCS: 36415; 82397; 87015; 87045; 87046; 87324; 87449; 87493; 87899; 89055 ==

== ENCOUNTER → 2021-03-21 | Outpatient (CLI) | payer BC ==
[~2021-03-21] VITALS: Ht 165.1 cm; Wt 91.8 kg
[~2021-03-21] MED LIST changes: +ACETAMINOPHEN 500 MG TAB (TYLENOL) PO NR; +ACETAMINOPHEN 500 MG TAB (TYLENOL) PO PRN; +CATHETER FLUSH 10 ML SYR IV PRN; +EPINEPHrine INJECTION 1 MG/ML AMP SC PRN; +INFLIXIMAB FOR IV NR; +NORMAL SALINE IV NR; +diphenhydrAMINE 25 MG TAB (BENADRYL) PO NR; +diphenhydrAMINE 50 MG/ML INJ (BENADRYL) IV PRN; +methylPREDNISolone 125 MG (Solu-MEDROL) VIAL IV PRN
[2021-03-21 10:40] VITALS: BP 104/70
[2021-03-21 11:10] LABS: BASOPHILS # (AUTO) 0.1 10^3/uL (0.0-0.1); BASOPHILS % (AUTO) 1 % (0-10); EOSINOPHILS # (AUTO) 0.6 10^3/uL (0.0-0.3); EOSINOPHILS % (AUTO) 7 % (0-10); HEMATOCRIT 34 % (35-52); HEMOGLOBIN 10.8 g/dL (11.5-16.0); LYMPHOCYTES # (AUTO) 2.4 10^3/uL (1.0-4.0); LYMPHOCYTES % (AUTO) 28 % (12-44); MEAN CORPUSCULAR HEMOGLOBIN 27 pg (25-34); MEAN CORPUSCULAR HGB CONC 32 g/dL (32-36); MEAN CORPUSCULAR VOLUME 84 fL (80-99); MEAN PLATELET VOLUME 8.3 fL (9.0-12.2); MONOCYTES % (AUTO) 12 % (0-12); NEUTROPHILS # (AUTO) 4.4 10^3/uL (1.8-7.8); NEUTROPHILS % (AUTO) 52 % (42-75); PLATELET COUNT 426 10^3/uL (130-400); WHITE BLOOD COUNT 8.5 10^3/uL (4.3-11.0)
[2021-03-21 11:32] LABS: ALANINE AMINOTRANSFERASE 16 U/L (0-55); ALBUMIN 3.4 GM/DL (3.2-4.5); ALKALINE PHOSPHATASE 68 U/L (40-136); BILIRUBIN,TOTAL 0.3 MG/DL (0.1-1.0); BUN/CREATININE RATIO 7; CALCIUM 8.9 MG/DL (8.5-10.1); CARBON DIOXIDE 22 MMOL/L (21-32); CHLORIDE 107 MMOL/L (98-107); CREATININE SERUM 0.86 MG/DL (0.60-1.30); GFR ESTIMATED > 60; GLUCOSE 93 MG/DL (70-105); POTASSIUM 4.5 MMOL/L (3.6-5.0); SODIUM 137 MMOL/L (135-145); TOTAL PROTEIN 7.2 GM/DL (6.4-8.2)
== END ==
LOC: SDC 10:40
PROVIDERS: ATTEND Internal Medicine
DX: K51.90 Ulcerative colitis, unspecified, without complications (principal)
CPT/HCPCS: 36415; 80053; 85025; 96365; 96366

== ENCOUNTER 2021-06-20 12:45 | Outpatient (RCR) | payer BC, OTHER ==
[2021-04-21] MEDS: diphenhydrAMINE 25 MG TAB (BENADRYL) PO PRN (14:20)
[2021-04-21] MEDS: ACETAMINOPHEN 500 MG TAB (TYLENOL) PO PRN (14:20)
[2021-04-21 14:25] VITALS: BP 128/90
[2021-04-21 14:46] LABS: BASOPHILS % (AUTO) 1 % (0-10); EOSINOPHILS # (AUTO) 0.2 10^3/uL (0.0-0.3); EOSINOPHILS % (AUTO) 2 % (0-10); HEMATOCRIT 38 % (35-52); HEMOGLOBIN 12.3 g/dL (11.5-16.0); LYMPHOCYTES # (AUTO) 4.1 10^3/uL (1.0-4.0); LYMPHOCYTES % (AUTO) 51 % (12-44); MEAN CORPUSCULAR HEMOGLOBIN 27 pg (25-34); MEAN CORPUSCULAR HGB CONC 32 g/dL (32-36); MEAN CORPUSCULAR VOLUME 85 fL (80-99); MEAN PLATELET VOLUME 9.1 fL (9.0-12.2); MONOCYTES % (AUTO) 13 % (0-12); NEUTROPHILS # (AUTO) 2.7 10^3/uL (1.8-7.8); NEUTROPHILS % (AUTO) 34 % (42-75); PLATELET COUNT 341 10^3/uL (130-400)
[2021-04-21 15:07] LABS: ALBUMIN 3.7 GM/DL (3.2-4.5); BILIRUBIN,TOTAL 0.3 MG/DL (0.1-1.0); CALCIUM 9.2 MG/DL (8.5-10.1); CREATININE SERUM 0.74 MG/DL (0.60-1.30); POTASSIUM 4.1 MMOL/L (3.6-5.0); TOTAL PROTEIN 7.5 GM/DL (6.4-8.2)
[2021-04-21] MEDS: VEDOLIZUMAB 300 MG/NS 250 ML IVPB IV SCH ×2 (15:09)
[2021-05-09 13:25] VITALS: BP 142/86
[2021-05-09] MEDS: diphenhydrAMINE 25 MG TAB (BENADRYL) PO PRN (14:10)
[2021-05-09] MEDS: ACETAMINOPHEN 500 MG TAB (TYLENOL) PO PRN (14:10)
[2021-05-09 14:28] LABS: BASOPHILS % (AUTO) 1 % (0-10); EOSINOPHILS # (AUTO) 0.1 10^3/uL (0.0-0.3); EOSINOPHILS % (AUTO) 1 % (0-10); HEMATOCRIT 42 % (35-52); HEMOGLOBIN 13.1 g/dL (11.5-16.0); LYMPHOCYTES # (AUTO) 1.7 10^3/uL (1.0-4.0); LYMPHOCYTES % (AUTO) 21 % (12-44); MEAN CORPUSCULAR HEMOGLOBIN 27 pg (25-34); MEAN CORPUSCULAR HGB CONC 31 g/dL (32-36); MEAN CORPUSCULAR VOLUME 87 fL (80-99); MEAN PLATELET VOLUME 9.1 fL (9.0-12.2); MONOCYTES # (AUTO) 0.4 10^3/uL (0.0-1.0); MONOCYTES % (AUTO) 5 % (0-12); NEUTROPHILS # (AUTO) 5.9 10^3/uL (1.8-7.8); NEUTROPHILS % (AUTO) 72 % (42-75); PLATELET COUNT 331 10^3/uL (130-400); WHITE BLOOD COUNT 8.2 10^3/uL (4.3-11.0)
[2021-05-09 14:41] LABS: BILIRUBIN,TOTAL 0.4 MG/DL (0.1-1.0); CALCIUM 9.5 MG/DL (8.5-10.1); CREATININE SERUM 0.91 MG/DL (0.60-1.30); POTASSIUM 4.5 MMOL/L (3.6-5.0); TOTAL PROTEIN 7.6 GM/DL (6.4-8.2)
[2021-05-09] MEDS: VEDOLIZUMAB 300 MG/NS 250 ML IVPB IV SCH ×2 (14:46)
[2021-05-09 15:15] VITALS: BP 129/65
[~2021-06-20 12:45] MED LIST changes: -ACETAMINOPHEN 500 MG TAB (TYLENOL) PO NR; -INFLIXIMAB FOR IV NR; -NORMAL SALINE IV NR; -diphenhydrAMINE 25 MG TAB (BENADRYL) PO NR; -methylPREDNISolone 125 MG (Solu-MEDROL) VIAL IV PRN
[2021-06-20 13:00] VITALS: BP 132/80
[2021-06-20] MEDS: diphenhydrAMINE 25 MG TAB (BENADRYL) PO PRN (13:15)
[2021-06-20] MEDS: ACETAMINOPHEN 500 MG TAB (TYLENOL) PO PRN (13:15)
[2021-06-20] MEDS: VEDOLIZUMAB 300 MG/NS 250 ML IVPB IV SCH ×2 (13:34)
[2021-06-20 13:35] LABS: BASOPHILS # (AUTO) 0.1 10^3/uL (0.0-0.1); BASOPHILS % (AUTO) 1 % (0-10); EOSINOPHILS # (AUTO) 0.3 10^3/uL (0.0-0.3); EOSINOPHILS % (AUTO) 5 % (0-10); HEMATOCRIT 39 % (35-52); HEMOGLOBIN 12.7 g/dL (11.5-16.0); LYMPHOCYTES # (AUTO) 2.1 10^3/uL (1.0-4.0); LYMPHOCYTES % (AUTO) 35 % (12-44); MEAN CORPUSCULAR HEMOGLOBIN 28 pg (25-34); MEAN CORPUSCULAR HGB CONC 32 g/dL (32-36); MEAN CORPUSCULAR VOLUME 86 fL (80-99); MONOCYTES # (AUTO) 0.7 10^3/uL (0.0-1.0); MONOCYTES % (AUTO) 13 % (0-12); NEUTROPHILS # (AUTO) 2.7 10^3/uL (1.8-7.8); NEUTROPHILS % (AUTO) 46 % (42-75); PLATELET COUNT 290 10^3/uL (130-400); WHITE BLOOD COUNT 5.8 10^3/uL (4.3-11.0)
[2021-06-20 13:56] LABS: ALBUMIN 3.8 GM/DL (3.2-4.5); BILIRUBIN,TOTAL 0.4 MG/DL (0.1-1.0); CALCIUM 9.5 MG/DL (8.5-10.1); CREATININE SERUM 0.71 MG/DL (0.60-1.30); TOTAL PROTEIN 7.2 GM/DL (6.4-8.2)
== END 2021-07-20 | disposition home or self-care (01) ==
LOC: SDC 12:45
PROVIDERS: ATTEND Internal Medicine
DX: K51.90 Ulcerative colitis, unspecified, without complications (principal)
CPT/HCPCS: 36415; 80053; 85025; 86141; 96365; J3380

== ENCOUNTER → 2021-07-16 | Outpatient (CLI) | payer BC, OTHER ==
[~2021-07-16] MED LIST changes: -ACETAMINOPHEN 500 MG TAB (TYLENOL) PO PRN; -CATHETER FLUSH 10 ML SYR IV PRN; -EPINEPHrine INJECTION 1 MG/ML AMP SC PRN; -diphenhydrAMINE 50 MG/ML INJ (BENADRYL) IV PRN
[2021-07-16 16:11] LABS: BASOPHILS % (AUTO) 1 % (0-10); EOSINOPHILS # (AUTO) 0.3 10^3/uL (0.0-0.3); EOSINOPHILS % (AUTO) 5 % (0-10); HEMATOCRIT 43 % (35-52); LYMPHOCYTES # (AUTO) 2.4 10^3/uL (1.0-4.0); LYMPHOCYTES % (AUTO) 37 % (12-44); MEAN CORPUSCULAR HEMOGLOBIN 28 pg (25-34); MEAN CORPUSCULAR HGB CONC 32 g/dL (32-36); MEAN CORPUSCULAR VOLUME 85 fL (80-99); MEAN PLATELET VOLUME 9.1 fL (9.0-12.2); MONOCYTES # (AUTO) 0.9 10^3/uL (0.0-1.0); MONOCYTES % (AUTO) 14 % (0-12); NEUTROPHILS # (AUTO) 2.8 10^3/uL (1.8-7.8); NEUTROPHILS % (AUTO) 43 % (42-75); PLATELET COUNT 296 10^3/uL (130-400); WHITE BLOOD COUNT 6.4 10^3/uL (4.3-11.0)
[2021-07-16 16:24] LABS: ALBUMIN 4.2 GM/DL (3.2-4.5); POTASSIUM 4.2 MMOL/L (3.6-5.0)
[2021-07-16 16:25] LABS: CALCIUM 9.8 MG/DL (8.5-10.1)
[2021-07-16 16:27] LABS: TOTAL PROTEIN 7.9 GM/DL (6.4-8.2)
[2021-07-16 16:28] LABS: BILIRUBIN,TOTAL 0.5 MG/DL (0.1-1.0)
[2021-07-16 16:30] LABS: CREATININE SERUM 0.75 MG/DL (0.60-1.30)
== END ==
LOC: LAB 15:42
PROVIDERS: ATTEND Pediatrics
DX: R74.8 Abnormal levels of other serum enzymes (principal)
CPT/HCPCS: 36415; 80053; 82550; 83874; 85025

== ENCOUNTER 2021-08-18 05:38 | Outpatient (CLI) | payer BC ==
[~2021-08-18] VITALS: Ht 167.7 cm; Wt 103.2 kg
[2021-08-18] MEDS ORDERED: METF-478 PO (14:20)
[2021-08-18] MEDS ORDERED: FLUO40CA PO (14:20)
[2021-08-18] MEDS ORDERED: VEDO300V IV (14:20)
[2021-08-18] MEDS ORDERED: LOSA1TAB20 PO (14:20)
[2021-08-18] MEDS ORDERED: FERR-84 PO (14:20)
[2021-08-18] MEDS ORDERED: OMG1KC PO (14:20)
[2021-08-18] MEDS ORDERED: CHOL-34 PO (14:20)
[2021-08-18] MEDS ORDERED: DULA1.5P2 SQ (14:20)
[2021-08-18] MEDS ORDERED: DOCU-143 PO (14:20)
== END 2021-08-18 14:33 | disposition home or self-care (01) ==
LOC: PREOP 05:38
PROVIDERS: ATTEND Surgery
DX: Z01.818 Encounter for other preprocedural examination (principal)

== ENCOUNTER 2021-08-20 10:10 | Outpatient (RCR) | payer BC ==
[~2021-08-20 10:10] MED LIST changes: -ACHD5005 PO; -LACTATED RINGERS 1,000 ML IV PRN; -LIDOCAINE/EPI 1%-1:100,000 (XYLOCAINE) 20ML ONE; -MIDAZOLAM 2 MG/2 ML (VERSED) VIAL IV ONE; -ceFAZolin 2 GM IV Premixed 50 ML IV ONE; -ceFAZolin 2 GM IV Premixed 50 ML ONE
[2021-08-20 10:45] VITALS: BP 154/103
[2021-08-20] MEDS ORDERED: diphenhydrAMINE 25 MG TAB (BENADRYL) PO NR (11:00)
[2021-08-20] MEDS ORDERED: diphenhydrAMINE 50 MG/ML INJ (BENADRYL) IV PRN (11:00)
[2021-08-20] MEDS ORDERED: CATHETER FLUSH 10 ML SYR IV PRN (11:00)
[2021-08-20] MEDS ORDERED: EPINEPHrine INJECTION 1 MG/ML AMP IM PRN (11:00)
[2021-08-20] MEDS ORDERED: ACETAMINOPHEN 500 MG TAB (TYLENOL) PO NR (11:00)
[2021-08-20] MEDS ORDERED: VEDOLIZUMAB 300 MG/NS 250 ML IVPB IV SCH ×2 (11:00)
[2021-08-20] MEDS ORDERED: ACETAMINOPHEN 500 MG TAB (TYLENOL) PO PRN (11:00)
[2021-08-20 11:30] LABS: BASOPHILS % (AUTO) 0 % (0-10); EOSINOPHILS # (AUTO) 0.1 10^3/uL (0.0-0.3); EOSINOPHILS % (AUTO) 1 % (0-10); HEMATOCRIT 43 % (35-52); HEMOGLOBIN 14.1 g/dL (11.5-16.0); LYMPHOCYTES # (AUTO) 1.8 10^3/uL (1.0-4.0); LYMPHOCYTES % (AUTO) 37 % (12-44); MEAN CORPUSCULAR HEMOGLOBIN 28 pg (25-34); MEAN CORPUSCULAR HGB CONC 33 g/dL (32-36); MEAN CORPUSCULAR VOLUME 84 fL (80-99); MEAN PLATELET VOLUME 8.8 fL (9.0-12.2); MONOCYTES # (AUTO) 0.9 10^3/uL (0.0-1.0); MONOCYTES % (AUTO) 18 % (0-12); NEUTROPHILS # (AUTO) 2.1 10^3/uL (1.8-7.8); NEUTROPHILS % (AUTO) 43 % (42-75); PLATELET COUNT 265 10^3/uL (130-400); WHITE BLOOD COUNT 4.9 10^3/uL (4.3-11.0)
[2021-08-20 11:51] LABS: ALBUMIN 3.9 GM/DL (3.2-4.5); BILIRUBIN,TOTAL 0.4 MG/DL (0.1-1.0); CREATININE SERUM 0.82 MG/DL (0.60-1.30); POTASSIUM 3.9 MMOL/L (3.6-5.0); TOTAL PROTEIN 7.5 GM/DL (6.4-8.2)
[2021-08-21] MEDS ORDERED: ACHD5005 PO (14:20)
== END 2021-09-19 | disposition home or self-care (01) ==
LOC: SDC 10:10
PROVIDERS: ATTEND Internal Medicine
DX: K51.90 Ulcerative colitis, unspecified, without complications (principal)
CPT/HCPCS: 36415; 80053; 85025; 86141; 96365; J3380

== ENCOUNTER → 2021-08-20 | Day surgery (SDC) | payer BC ==
[~2021-08-20] VITALS: Ht 167.7 cm; Wt 103.2 kg
[~2021-08-20] MED LIST changes: +ACHD5005 PO; +CHOL-34 PO; +DOCU-143 PO; +DULA1.5P2 SQ; +FERR-84 PO; +FLUO40CA PO; +LACTATED RINGERS 1,000 ML IV PRN; +LIDOCAINE/EPI 1%-1:100,000 (XYLOCAINE) 20ML ONE; +LOSA1TAB20 PO; +METF-478 PO; +MIDAZOLAM 2 MG/2 ML (VERSED) VIAL IV ONE; +OMG1KC PO; +VEDO300V IV; +ceFAZolin 2 GM IV Premixed 50 ML IV ONE; +ceFAZolin 2 GM IV Premixed 50 ML ONE
[2021-08-20 08:25] VITALS: BP 154/103
--- NOTE | 2021-08-20 09:26 | Progress Note-Pre Operative ---
Pre-Operative Progress Note H&P Reviewed The H&P was reviewed, patient examined and no changes noted. Time Seen by Provider: 08:17 Date H&P Reviewed: Aug 20, 2021 Time H&P Reviewed: 08:17 Pre-Operative Diagnosis: MS Weakness and pain MEHREEN NICHOLS DO Aug 20, 2021 09:26
== END ==
LOC: SDC 08:17
PROVIDERS: ATTEND Surgery
DX: M79.18 Myalgia, other site (principal); Z53.8 Procedure and treatment not carried out for other reasons
CPT/HCPCS: 82947; 87081

== ENCOUNTER 2021-08-21 08:19 | Day surgery (SDC) | payer BC ==
[~2021-08-21] VITALS: Ht 167 cm; Wt 103.2 kg
[2021-08-21] VITALS (10 sets, daily range): BP systolic 100–123; BP diastolic 57–82
[2021-08-21] MEDS ORDERED: ONDANSETRON 4 MG/2 ML (SDV) Z0FRAN ONE (08:59)
[2021-08-21] MEDS ORDERED: fentaNYL INJ 100 MCG/2 ML AMP ONE (08:59)
[2021-08-21] MEDS ORDERED: proPOfol 200 MG/20 ML (DIPRIVAN) VIAL IV ONE (08:59)
[2021-08-21] MEDS ORDERED: MIDAZOLAM 2 MG/2 ML (VERSED) VIAL ONE (08:59)
[2021-08-21] MEDS ORDERED: LIDOCAINE PF 2% 5 ML (XYLOCAINE) VIAL ONE (08:59)
--- NOTE | 2021-08-21 08:59 | Progress Note-Pre Operative ---
Pre-Operative Progress Note H&P Reviewed The H&P was reviewed, patient examined and no changes noted. Time Seen by Provider: 08:56 Date H&P Reviewed: Aug 21, 2021 Time H&P Reviewed: 08:56 Pre-Operative Diagnosis: muscle weakness MEHREEN NICHOLS DO Aug 21, 2021 08:59
[2021-08-21] MEDS ORDERED: LACTATED RINGERS 1,000 ML IV PRN (09:00)
[2021-08-21] MEDS ORDERED: LIDOCAINE/EPI 1%-1:100,000 (XYLOCAINE) 20ML ONE (09:19)
--- NOTE | 2021-08-21 10:31 | Progress Note-Post Operative ---
Post-Operative Progess Note Surgeon (s)/Assembler Mechanical Ordnance (s) Surgeon MEHREEN NICHOLS DO Assembler Mechanical Ordnance: CECIL Felix Pre-Operative Diagnosis muscle weakness Post-Operative Diagnosis same pending pathology Procedure & Operative Findings Date of Procedure 08/21/21 Procedure Performed/Findings Muscle biopsy right thigh Anesthesia Type LMA Estimated Blood Loss Estimated blood loss (mL): scant Specimens/Packing Specimens Removed right thigh muscle bx, appx 2x2cm MEHREEN NICHOLS DO Aug 21, 2021 10:31
--- NOTE | 2021-08-21 10:32 | Discharge Inst-Surgical ---
Discharge Inst-Surgical Depart Medication/Instructions New, Converted or Re-Newed RX: Other (use home meds) Patient Instructions Follow up Appt: Make appointment for 1 week. [phone] Instructions: No lifting greater than 20 pounds. No strenuous activity. May shower in 24 hours, no tub bath or soaking. Use incentive spirometer at home as directed. No Smoking Skin/Wound Care: May remove bandages in am. You need to leave the Dermabond on incision it will fall off on it's own. Symptoms to Report: Appetite Changes, Extremity Discoloration, Numbness/Tingling, Swelling Increased, Bleeding Excessive, Eyesight Changes, Pain Increased, Urine Color Change, Constipation(Persistent), Fever over 101 degree F, Pain/Pressure in chest, Urinating Difficulty, Cough Up/Vomit Blood, Heart Beat Irreg/Pounding, Pain/Pressure in jaw, Cramps in feet or legs, Lightheadedness, Pain/Pressure in shoulder, Diarrhea(Persistent), Memory Changes Suddenly, Questions/Concerns, Weight gain consecutive days, Dizziness/Fainting, Nausea/Vomiting, Shortness of Breath, Weight gain over 2 pounds If questions or concerns contact your physician Or seek help at emergency department. Activity Activity as Tolerated: Yes Driving Instructions: You May Drive Diet Discharge Diet: No Restrictions Diet After 24 Hours: Clear Liquid if Nauseous If Any Problems/Questions/Issu: Contact Your Physician, Go to Emergency Room Skin/Wound Care Infection Signs and Symptoms: Increased Redness, Foul Odor of Wound, Increased Drainage, Skin Itchy or Has a Rash, Increased Swelling, Temperature Above 101 F Bathing Instructions: Shower Stitches/Aquiles/Dermabond Dis: MEHREEN Morales DO Aug 21, 2021 10:32
[2021-08-21] MEDS ORDERED: SEVOFLURANE (ULTANE) 15 ML INHAL SOLN ONE (10:34)
--- NOTE | 2021-08-21 10:41 | Anesthesia-General Post-Op ---
General Patient Condition Mental Status/LOC: Same as Preop Cardiovascular: Satisfactory Nausea/Vomiting: Absent Respiratory: Satisfactory Pain: Controlled Complications: Absent Post Op Complications Complications None Follow Up Care/Instructions Patient Instructions None needed. Anesthesia/Patient Condition Patient Condition Patient is doing well, no complaints, stable vital signs, no apparent adverse anesthesia problems. No complications reported per nursing. DAWOOD ROMAN CRNA Aug 21, 2021 10:41
[2021-08-21] MEDS ORDERED: HYDROmorphone 2 MG/ML VIAL (DILAUDID) IV ONE (10:45)
[2021-08-21] MEDS ORDERED: morphine INJ 10 MG/ML 1ML (SYR OR VIAL) IVP ONE (10:45)
[2021-08-21] MEDS ORDERED: MEPERIDINE (DEMEROL) INJ 50 MG/ML IVP ONE (10:45)
[2021-08-21] MEDS ORDERED: ONDANSETRON 4 MG/2 ML (SDV) Z0FRAN IVP PRN (10:45)
[2021-08-21] MEDS ORDERED: ceFAZolin 2 GM/50 ML (PRE-MIXED) IV ONE (11:00)
[2021-08-21] MEDS ORDERED: ACHD5005 PO (14:20)
--- NOTE | 2021-08-21 14:51 | OPERATIVE REPORT ---
DATE OF SERVICE: 08/21/2021 PREOPERATIVE DIAGNOSIS: Muscle weakness and pain. POSTOPERATIVE DIAGNOSIS: Muscle weakness and pain, pending pathology. PROCEDURE PERFORMED: Biopsy of right thigh muscle. SURGEON: Francisco Nichols DO. FILLING LAYER UP: OLYA Felix. ANESTHESIA: LMA. SPECIMEN: Right thigh muscle biopsy approximately 2 x 2 cm. BLOOD LOSS: Scant. FLUIDS: Per anesthesia. POSTOPERATIVE CONDITION: Stable. INDICATION FOR PROCEDURE: The patient is a 55-year-old female, who has been having muscle weakness, pain and having trouble standing and needed a muscle biopsy. FINDINGS: The patient had a right thigh biopsy performed. This is what she requested, sent for special staining and testing. PROCEDURE NOTE: After informed consent was obtained, the patient was brought to the operating room and placed on the operating table in a supine position. She was sterilely prepped and draped in a normal fashion. Local lidocaine was then used to infiltrate the right upper thigh. I made an incision with #15 blade, carried down through the skin into subcutaneous tissue, then deepened down to the subcutaneous tissue with Bovie electrocautery down to the fascia just above the muscle, held the edges of the incision apart with Vu's. I made an incision in the fascia of the muscle in order to get access to the muscle, grasped the muscle, and then cut out a 2 cm x 2 cm piece. This was then passed off the table. There was some mild muscle bleeding, controlled this with Bovie electrocautery and copiously irrigated with normal saline. No bleeding. Closed the fascia with 3-0 Vicryl three interrupted sutures. I then closed the skin with 4-0 undyed Monocryl three interrupted subcuticular stitches. Area was cleaned and dried and Dermabond was placed as well as a Band-Aid. The patient tolerated the procedure. Sponge, instrument, and needle count correct at the end of the case. Job ID: [id number] DocumentID: [id number] Dictated Date: 08/21/2021 12:43:46 Alkylation Operator Date: 08/21/2021 14:50:42 Dictated By: FRANCISCO NICHOLS DO [facility]
== END 2021-08-21 12:25 ==
LOC: SDC 08:19
PROVIDERS: ATTEND Surgery
DX: M79.18 Myalgia, other site (principal); I10 Essential (primary) hypertension; E78.5 Hyperlipidemia, unspecified; E11.9 Type 2 diabetes mellitus without complications; E66.9 Obesity, unspecified; J44.9 Chronic obstructive pulmonary disease, unspecified; G47.33 Obstructive sleep apnea (adult) (pediatric); G43.909 Migraine, unspecified, not intractable, without status migrainosus; Z79.899 Other long term (current) drug therapy; Z87.891 Personal history of nicotine dependence; Z68.37 Body mass index [BMI] 37.0-37.9, adult; Z99.89 Dependence on other enabling machines and devices; Z79.84 Long term (current) use of oral hypoglycemic drugs; Z79.891 Long term (current) use of opiate analgesic; Z83.3 Family history of diabetes mellitus
CPT/HCPCS: 82947

== ENCOUNTER 2021-10-15 12:12 | Outpatient (RCR) | payer BC ==
[~2021-10-15] VITALS: Ht 167.7 cm; Wt 104.5 kg
[~2021-10-15 12:12] MED LIST changes: +ACHD5005 PO
[2021-10-15] MEDS ORDERED: diphenhydrAMINE 25 MG TAB (BENADRYL) PO NR ×2 (12:30→12:32)
[2021-10-15] MEDS ORDERED: ACETAMINOPHEN 500 MG TAB (TYLENOL) PO NR ×2 (12:30→12:32)
[2021-10-15] MEDS ORDERED: ACETAMINOPHEN 500 MG TAB (TYLENOL) PO PRN (12:32)
[2021-10-15] MEDS ORDERED: diphenhydrAMINE 50 MG/ML INJ (BENADRYL) IV PRN (12:32)
[2021-10-15] MEDS ORDERED: EPINEPHrine INJECTION 1 MG/ML AMP IM PRN (12:32)
[2021-10-15] MEDS ORDERED: CATHETER FLUSH 10 ML SYR IV PRN (12:32)
[2021-10-15] MEDS ORDERED: VEDOLIZUMAB 300 MG/NS 250 ML IVPB IV SCH ×4 (12:32→12:45)
[2021-10-15 12:48] LABS: BASOPHILS # (AUTO) 0.1 10^3/uL (0.0-0.1); BASOPHILS % (AUTO) 1 % (0-10); EOSINOPHILS # (AUTO) 0.1 10^3/uL (0.0-0.3); EOSINOPHILS % (AUTO) 1 % (0-10); HEMATOCRIT 43 % (35-52); HEMOGLOBIN 14.5 g/dL (11.5-16.0); LYMPHOCYTES # (AUTO) 1.9 X 10^3 (1.0-4.0); LYMPHOCYTES % (AUTO) 30 % (12-44); MEAN CORPUSCULAR HEMOGLOBIN 28 pg (25-34); MEAN CORPUSCULAR HGB CONC 34 g/dL (32-36); MEAN CORPUSCULAR VOLUME 85 fL (80-99); MEAN PLATELET VOLUME 8.8 fL (9.0-12.2); MONOCYTES # (AUTO) 0.7 X 10^3 (0.0-1.0); MONOCYTES % (AUTO) 10 % (0-12); NEUTROPHILS # (AUTO) 3.6 X 10^3 (1.8-7.8); NEUTROPHILS % (AUTO) 57 % (42-75); PLATELET COUNT 335 10^3/uL (130-400); WHITE BLOOD COUNT 6.4 10^3/uL (4.3-11.0)
[2021-10-15 13:00] LABS: ALBUMIN 4.4 GM/DL (3.2-4.5)
[2021-10-15 13:01] LABS: CALCIUM 9.7 MG/DL (8.5-10.1)
[2021-10-15 13:03] LABS: TOTAL PROTEIN 8.1 GM/DL (6.4-8.2)
[2021-10-15 13:04] LABS: BILIRUBIN,TOTAL 0.4 MG/DL (0.1-1.0)
[2021-10-15 13:06] LABS: CREATININE SERUM 0.7 MG/DL (0.60-1.30)
[2021-10-15 14:05] VITALS: BP 133/83
== END 2021-10-20 | disposition home or self-care (01) ==
LOC: SDC 12:12
PROVIDERS: ATTEND Internal Medicine
DX: K51.90 Ulcerative colitis, unspecified, without complications (principal)
CPT/HCPCS: 36415; 80053; 85025; 86141; J3380

== ENCOUNTER 2021-12-10 11:58 | Outpatient (RCR) | payer BC ==
[~2021-12-10] VITALS: Ht 167.7 cm; Wt 104.5 kg
[2021-12-10] MEDS ORDERED: diphenhydrAMINE 25 MG TAB (BENADRYL) PO NR (12:30)
[2021-12-10] MEDS ORDERED: diphenhydrAMINE 25 MG TAB (BENADRYL) PO ONE (12:30)
[2021-12-10] MEDS ORDERED: ACETAMINOPHEN 500 MG TAB (TYLENOL) PO SCH (12:30)
[2021-12-10] MEDS ORDERED: diphenhydrAMINE 50 MG/ML INJ (BENADRYL) IV PRN (12:31)
[2021-12-10] MEDS ORDERED: EPINEPHrine INJECTION 1 MG/ML AMP IM PRN (12:31)
[2021-12-10] MEDS ORDERED: VEDOLIZUMAB 300 MG/NS 250 ML IVPB IV SCH ×2 (12:31)
[2021-12-10] MEDS ORDERED: CATHETER FLUSH 10 ML SYR IV PRN (12:31)
[2021-12-10] MEDS ORDERED: ACETAMINOPHEN 500 MG TAB (TYLENOL) PO PRN (12:31)
[2021-12-10 13:12] LABS: BASOPHILS % (AUTO) 1 % (0-10); EOSINOPHILS # (AUTO) 0.1 10^3/uL (0.0-0.3); EOSINOPHILS % (AUTO) 2 % (0-10); HEMATOCRIT 41 % (35-52); HEMOGLOBIN 13.8 g/dL (11.5-16.0); LYMPHOCYTES # (AUTO) 2.3 10^3/uL (1.0-4.0); LYMPHOCYTES % (AUTO) 43 % (12-44); MEAN CORPUSCULAR HEMOGLOBIN 29 pg (25-34); MEAN CORPUSCULAR HGB CONC 34 g/dL (32-36); MEAN CORPUSCULAR VOLUME 86 fL (80-99); MONOCYTES # (AUTO) 0.6 10^3/uL (0.0-1.0); MONOCYTES % (AUTO) 12 % (0-12); NEUTROPHILS # (AUTO) 2.3 10^3/uL (1.8-7.8); NEUTROPHILS % (AUTO) 43 % (42-75); PLATELET COUNT 286 10^3/uL (130-400); WHITE BLOOD COUNT 5.4 10^3/uL (4.3-11.0)
[2021-12-10 13:30] LABS: BILIRUBIN,TOTAL 0.3 MG/DL (0.1-1.0); CALCIUM 9.1 MG/DL (8.5-10.1); CREATININE SERUM 0.73 MG/DL (0.60-1.30); POTASSIUM 3.7 MMOL/L (3.6-5.0); TOTAL PROTEIN 7.3 GM/DL (6.4-8.2)
[2021-12-10 13:50] VITALS: BP 125/73
== END 2021-12-18 | disposition home or self-care (01) ==
LOC: SDC 11:58
PROVIDERS: ATTEND Internal Medicine
DX: K51.00 Ulcerative (chronic) pancolitis without complications (principal)
CPT/HCPCS: 36415; 80053; 82397; 85025; 86141; 96365; J3380

== ENCOUNTER → 2021-12-10 | Outpatient (CLI) | payer BC | LOC: LABNPT 08:34 | PROVIDERS: ATTEND Internal Medicine | DX: K51.00 Ulcerative (chronic) pancolitis without complications (principal) | CPT/HCPCS: 83993; 87015; 87045; 87046; 87324; 87449; 87899 ==

== ENCOUNTER 2022-02-06 13:15 | Outpatient (RCR) | payer BC ==
[2022-02-06] MEDS ORDERED: VEDOLIZUMAB 300 MG/NS 250 ML IVPB IV SCH ×2 (13:30)
[2022-02-06] MEDS ORDERED: ACETAMINOPHEN 500 MG TAB (TYLENOL) PO PRN (13:30)
[2022-02-06] MEDS ORDERED: CATHETER FLUSH 10 ML SYR IVP PRN (13:30)
[2022-02-06] MEDS ORDERED: diphenhydrAMINE 50 MG/ML INJ (BENADRYL) IV PRN (13:30)
[2022-02-06] MEDS ORDERED: diphenhydrAMINE 25 MG TAB (BENADRYL) PO ONE (13:30)
[2022-02-06] MEDS ORDERED: ACETAMINOPHEN 500 MG TAB (TYLENOL) PO ONE (13:30)
[2022-02-06] MEDS ORDERED: EPINEPHrine INJECTION 1 MG/ML AMP SC PRN (13:45)
[2022-02-06 15:00] VITALS: BP 119/80
[2022-02-06 15:13] LABS: BASOPHILS # (AUTO) 0.1 10^3/uL (0.0-0.1); BASOPHILS % (AUTO) 1 % (0-10); EOSINOPHILS # (AUTO) 0.2 10^3/uL (0.0-0.3); EOSINOPHILS % (AUTO) 2 % (0-10); HEMATOCRIT 39 % (35-52); HEMOGLOBIN 13.4 g/dL (11.5-16.0); LYMPHOCYTES # (AUTO) 2.3 10^3/uL (1.0-4.0); LYMPHOCYTES % (AUTO) 31 % (12-44); MEAN CORPUSCULAR HEMOGLOBIN 30 pg (25-34); MEAN CORPUSCULAR HGB CONC 34 g/dL (32-36); MEAN CORPUSCULAR VOLUME 87 fL (80-99); MEAN PLATELET VOLUME 9.5 fL (9.0-12.2); MONOCYTES # (AUTO) 0.7 10^3/uL (0.0-1.0); MONOCYTES % (AUTO) 9 % (0-12); NEUTROPHILS # (AUTO) 4.2 10^3/uL (1.8-7.8); NEUTROPHILS % (AUTO) 57 % (42-75); PLATELET COUNT 258 10^3/uL (130-400); WHITE BLOOD COUNT 7.5 10^3/uL (4.3-11.0)
[2022-02-06 15:17] LABS: POTASSIUM 3.4 MMOL/L (3.6-5.0)
[2022-02-06 15:18] LABS: CALCIUM 9.2 MG/DL (8.5-10.1)
[2022-02-06 15:19] LABS: TOTAL PROTEIN 7.4 GM/DL (6.4-8.2)
[2022-02-06 15:21] LABS: BILIRUBIN,TOTAL 0.3 MG/DL (0.1-1.0)
[2022-02-06 15:23] LABS: CREATININE SERUM 0.81 MG/DL (0.60-1.30)
== END 2022-02-17 | disposition home or self-care (01) ==
LOC: SDC 13:15
PROVIDERS: ATTEND Internal Medicine
DX: K51.00 Ulcerative (chronic) pancolitis without complications (principal)
CPT/HCPCS: 36415; 80053; 85025; 86141; 96365; 96366; J3380

== ENCOUNTER 2022-04-10 12:37 | Outpatient (RCR) | payer BC ==
[~2022-04-10] VITALS: Wt 104.5 kg
[2022-04-10 12:35] VITALS: BP 142/92
[~2022-04-10 12:37] MED LIST changes: -TRIA1CAP4 PO; +TRIA1CAP84 PO
[2022-04-10] MEDS ORDERED: diphenhydrAMINE 50 MG/ML INJ (BENADRYL) IV PRN (12:48)
[2022-04-10] MEDS ORDERED: EPINEPHrine INJECTION 1 MG/ML AMP SC PRN (12:48)
[2022-04-10] MEDS ORDERED: ACETAMINOPHEN 500 MG TAB (TYLENOL) PO PRN (12:48)
[2022-04-10] MEDS ORDERED: VEDOLIZUMAB 300 MG/NS 250 ML IVPB IV SCH ×4 (12:48→13:00)
[2022-04-10] MEDS ORDERED: CATHETER FLUSH 10 ML SYR IVP PRN (12:48)
[2022-04-10] MEDS ORDERED: methylPREDNISolone 125 MG (Solu-MEDROL) VIAL IV PRN (13:00)
[2022-04-10 13:05] LABS: BASOPHILS % (AUTO) 1 % (0-10); EOSINOPHILS # (AUTO) 0.1 10^3/uL (0.0-0.3); EOSINOPHILS % (AUTO) 1 % (0-10); HEMATOCRIT 41 % (35-52); HEMOGLOBIN 14.3 g/dL (11.5-16.0); LYMPHOCYTES # (AUTO) 2.5 10^3/uL (1.0-4.0); LYMPHOCYTES % (AUTO) 36 % (12-44); MEAN CORPUSCULAR HEMOGLOBIN 30 pg (25-34); MEAN CORPUSCULAR HGB CONC 35 g/dL (32-36); MEAN CORPUSCULAR VOLUME 87 fL (80-99); MEAN PLATELET VOLUME 8.9 fL (9.0-12.2); MONOCYTES # (AUTO) 0.8 10^3/uL (0.0-1.0); MONOCYTES % (AUTO) 11 % (0-12); NEUTROPHILS # (AUTO) 3.6 10^3/uL (1.8-7.8); NEUTROPHILS % (AUTO) 51 % (42-75); PLATELET COUNT 286 10^3/uL (130-400)
[2022-04-10 13:26] LABS: ALBUMIN 4.2 GM/DL (3.2-4.5); BILIRUBIN,TOTAL 0.5 MG/DL (0.1-1.0); CALCIUM 9.5 MG/DL (8.5-10.1); CREATININE SERUM 0.77 MG/DL (0.60-1.30); POTASSIUM 3.7 MMOL/L (3.6-5.0); TOTAL PROTEIN 7.5 GM/DL (6.4-8.2)
== END 2022-04-19 | disposition home or self-care (01) ==
LOC: SDC 12:37
PROVIDERS: ATTEND Internal Medicine
DX: K51.90 Ulcerative colitis, unspecified, without complications (principal)
CPT/HCPCS: 36415; 80053; 85025; 86141; 96365; J3380

== ENCOUNTER 2022-06-05 13:25 | Outpatient (RCR) | payer BC ==
[~2022-06-05] VITALS: Ht 167.8 cm; Wt 102.7 kg
[2022-06-05] MEDS ORDERED: diphenhydrAMINE 50 MG/ML INJ (BENADRYL) IV PRN (13:39)
[2022-06-05] MEDS ORDERED: EPINEPHrine INJECTION 1 MG/ML AMP SC PRN (13:39)
[2022-06-05] MEDS ORDERED: methylPREDNISolone 125 MG (Solu-MEDROL) VIAL IV PRN (13:39)
[2022-06-05] MEDS ORDERED: VEDOLIZUMAB 300 MG/NS 250 ML IVPB IV SCH ×2 (13:39)
[2022-06-05] MEDS ORDERED: CATHETER FLUSH 10 ML SYR IVP PRN (13:39)
[2022-06-05] MEDS ORDERED: ACETAMINOPHEN 500 MG TAB (TYLENOL) PO PRN (13:39)
[2022-06-05 14:34] LABS: BASOPHILS % (AUTO) 1 % (0-10); EOSINOPHILS # (AUTO) 0.3 10^3/uL (0.0-0.3); EOSINOPHILS % (AUTO) 4 % (0-10); HEMATOCRIT 37 % (35-52); HEMOGLOBIN 12.7 g/dL (11.5-16.0); LYMPHOCYTES # (AUTO) 2.5 10^3/uL (1.0-4.0); LYMPHOCYTES % (AUTO) 41 % (12-44); MEAN CORPUSCULAR HEMOGLOBIN 30 pg (25-34); MEAN CORPUSCULAR HGB CONC 34 g/dL (32-36); MEAN CORPUSCULAR VOLUME 87 fL (80-99); MEAN PLATELET VOLUME 8.9 fL (9.0-12.2); MONOCYTES # (AUTO) 0.7 10^3/uL (0.0-1.0); MONOCYTES % (AUTO) 11 % (0-12); NEUTROPHILS # (AUTO) 2.7 10^3/uL (1.8-7.8); NEUTROPHILS % (AUTO) 44 % (42-75); PLATELET COUNT 279 10^3/uL (130-400); WHITE BLOOD COUNT 6.1 10^3/uL (4.3-11.0)
[2022-06-05 14:46] VITALS: BP 147/87
[2022-06-05 14:55] LABS: ALBUMIN 3.8 GM/DL (3.2-4.5); POTASSIUM 3.6 MMOL/L (3.6-5.0)
[2022-06-05 14:57] LABS: TOTAL PROTEIN 6.9 GM/DL (6.4-8.2)
[2022-06-05 14:59] LABS: BILIRUBIN,TOTAL 0.3 MG/DL (0.1-1.0)
[2022-06-05 15:01] LABS: CREATININE SERUM 0.68 MG/DL (0.60-1.30)
== END 2022-06-19 | disposition home or self-care (01) ==
LOC: SDC 13:25
PROVIDERS: ATTEND Internal Medicine
DX: K51.90 Ulcerative colitis, unspecified, without complications (principal)
CPT/HCPCS: 36415; 80053; 85025; 86141; 96365; J3380

== ENCOUNTER 2022-08-04 13:10 | Outpatient (RCR) | payer BC ==
[~2022-08-04] VITALS: Ht 167.8 cm; Wt 102.7 kg
[~2022-08-04 13:10] MED LIST changes: +ALBU8.5H6 IH; -RT-ALBUINH IH
[2022-08-04] MEDS ORDERED: methylPREDNISolone 125 MG (Solu-MEDROL) VIAL IV PRN (13:24)
[2022-08-04] MEDS ORDERED: diphenhydrAMINE 50 MG/ML INJ (BENADRYL) IV PRN (13:24)
[2022-08-04] MEDS ORDERED: EPINEPHrine INJECTION 1 MG/ML AMP SC PRN (13:24)
[2022-08-04] MEDS ORDERED: CATHETER FLUSH 10 ML SYR IVP PRN (13:24)
[2022-08-04] MEDS ORDERED: VEDOLIZUMAB 300 MG/NS 250 ML IVPB IV SCH ×2 (13:24)
[2022-08-04] MEDS ORDERED: ACETAMINOPHEN 500 MG TAB (TYLENOL) PO PRN (13:24)
[2022-08-04 13:54] LABS: BASOPHILS # (AUTO) 0.1 10^3/uL (0.0-0.1); BASOPHILS % (AUTO) 0 % (0-10); EOSINOPHILS # (AUTO) 0.1 10^3/uL (0.0-0.3); EOSINOPHILS % (AUTO) 0 % (0-10); HEMATOCRIT 40 % (35-52); HEMOGLOBIN 13.7 g/dL (11.5-16.0); LYMPHOCYTES # (AUTO) 3.4 10^3/uL (1.0-4.0); LYMPHOCYTES % (AUTO) 29 % (12-44); MEAN CORPUSCULAR HEMOGLOBIN 30 pg (25-34); MEAN CORPUSCULAR HGB CONC 34 g/dL (32-36); MEAN CORPUSCULAR VOLUME 88 fL (80-99); MEAN PLATELET VOLUME 8.9 fL (9.0-12.2); MONOCYTES % (AUTO) 8 % (0-12); NEUTROPHILS # (AUTO) 7.2 10^3/uL (1.8-7.8); NEUTROPHILS % (AUTO) 61 % (42-75); PLATELET COUNT 324 10^3/uL (130-400); WHITE BLOOD COUNT 11.9 10^3/uL (4.3-11.0)
[2022-08-04 14:14] LABS: POTASSIUM 3.7 MMOL/L (3.6-5.0)
[2022-08-04 14:15] LABS: CALCIUM 9.5 MG/DL (8.5-10.1)
[2022-08-04 14:17] LABS: TOTAL PROTEIN 7.2 GM/DL (6.4-8.2)
[2022-08-04 14:18] LABS: BILIRUBIN,TOTAL 0.5 MG/DL (0.1-1.0)
[2022-08-04 14:20] LABS: CREATININE SERUM 0.9 MG/DL (0.60-1.30)
[2022-08-04 14:35] VITALS: BP 117/75
== END 2022-08-04 14:35 | disposition home or self-care (01) ==
LOC: SDC 13:10
PROVIDERS: ATTEND Internal Medicine
DX: K51.90 Ulcerative colitis, unspecified, without complications (principal)
CPT/HCPCS: 36415; 80053; 85025; 86141; 96365; J3380

== ENCOUNTER 2022-10-02 13:59 | Outpatient (RCR) | payer BC ==
[2022-10-02 13:55] VITALS: BP 152/87
[2022-10-02] MEDS ORDERED: diphenhydrAMINE 50 MG/ML INJ (BENADRYL) IV PRN (14:30)
[2022-10-02] MEDS ORDERED: methylPREDNISolone 125 MG (Solu-MEDROL) VIAL IV PRN (14:30)
[2022-10-02] MEDS ORDERED: CATHETER FLUSH 10 ML SYR IVP PRN (14:30)
[2022-10-02] MEDS ORDERED: VEDOLIZUMAB 300 MG/NS 250 ML IVPB IV SCH ×2 (14:30)
[2022-10-02] MEDS ORDERED: ACETAMINOPHEN 500 MG TAB (TYLENOL) PO PRN (14:30)
[2022-10-02] MEDS ORDERED: EPINEPHrine INJECTION 1 MG/ML AMP SC PRN (14:30)
[2022-10-02 14:46] LABS: BASOPHILS # (AUTO) 0.1 10^3/uL (0.0-0.1); BASOPHILS % (AUTO) 1 % (0-10); EOSINOPHILS # (AUTO) 0.1 10^3/uL (0.0-0.3); EOSINOPHILS % (AUTO) 2 % (0-10); HEMATOCRIT 41 % (35-52); HEMOGLOBIN 13.9 g/dL (11.5-16.0); LYMPHOCYTES # (AUTO) 1.8 10^3/uL (1.0-4.0); LYMPHOCYTES % (AUTO) 26 % (12-44); MEAN CORPUSCULAR HEMOGLOBIN 30 pg (25-34); MEAN CORPUSCULAR HGB CONC 34 g/dL (32-36); MEAN CORPUSCULAR VOLUME 88 fL (80-99); MEAN PLATELET VOLUME 9.1 fL (9.0-12.2); MONOCYTES # (AUTO) 0.6 10^3/uL (0.0-1.0); MONOCYTES % (AUTO) 9 % (0-12); NEUTROPHILS # (AUTO) 4.4 10^3/uL (1.8-7.8); NEUTROPHILS % (AUTO) 63 % (42-75); PLATELET COUNT 302 10^3/uL (130-400); WHITE BLOOD COUNT 7.1 10^3/uL (4.3-11.0)
[2022-10-02 15:03] LABS: ALBUMIN 4.2 GM/DL (3.2-4.5); BILIRUBIN,TOTAL 0.4 MG/DL (0.1-1.0); CALCIUM 9.4 MG/DL (8.5-10.1); CREATININE SERUM 0.84 MG/DL (0.60-1.30); POTASSIUM 3.5 MMOL/L (3.6-5.0); TOTAL PROTEIN 7.3 GM/DL (6.4-8.2)
== END 2022-10-20 | disposition home or self-care (01) ==
LOC: SDC 13:59
PROVIDERS: ATTEND Internal Medicine
DX: K51.90 Ulcerative colitis, unspecified, without complications (principal)
CPT/HCPCS: 36415; 80053; 85025; 86141; 96365; J3380

== ENCOUNTER 2022-12-11 10:35 | Outpatient (RCR) | payer BC ==
[2022-12-11] MEDS ORDERED: methylPREDNISolone 125 MG (Solu-MEDROL) VIAL IV PRN (11:00)
[2022-12-11] MEDS ORDERED: VEDOLIZUMAB 300 MG/NS 250 ML IVPB IV SCH ×2 (11:00)
[2022-12-11] MEDS ORDERED: ACETAMINOPHEN 500 MG TAB (TYLENOL) PO PRN (11:00)
[2022-12-11] MEDS ORDERED: EPINEPHrine INJECTION 1 MG/ML AMP INJ PRN (11:00)
[2022-12-11] MEDS ORDERED: CATHETER FLUSH 10 ML SYR IVP PRN (11:00)
[2022-12-11] MEDS ORDERED: diphenhydrAMINE 50 MG/ML INJ (BENADRYL) IV PRN (11:00)
[2022-12-11 11:43] LABS: BASOPHILS % (AUTO) 1 % (0-10); EOSINOPHILS # (AUTO) 0.2 10^3/uL (0.0-0.3); EOSINOPHILS % (AUTO) 3 % (0-10); HEMATOCRIT 39 % (35-52); HEMOGLOBIN 13.4 g/dL (11.5-16.0); LYMPHOCYTES # (AUTO) 2.1 10^3/uL (1.0-4.0); LYMPHOCYTES % (AUTO) 31 % (12-44); MEAN CORPUSCULAR HEMOGLOBIN 30 pg (25-34); MEAN CORPUSCULAR HGB CONC 34 g/dL (32-36); MEAN CORPUSCULAR VOLUME 87 fL (80-99); MEAN PLATELET VOLUME 8.7 fL (9.0-12.2); MONOCYTES # (AUTO) 0.6 10^3/uL (0.0-1.0); MONOCYTES % (AUTO) 9 % (0-12); NEUTROPHILS # (AUTO) 3.7 10^3/uL (1.8-7.8); NEUTROPHILS % (AUTO) 56 % (42-75); PLATELET COUNT 259 10^3/uL (130-400); WHITE BLOOD COUNT 6.6 10^3/uL (4.3-11.0)
[2022-12-11 12:03] LABS: BILIRUBIN,TOTAL 0.3 MG/DL (0.1-1.0); CALCIUM 9.7 MG/DL (8.5-10.1); CREATININE SERUM 0.71 MG/DL (0.60-1.30); POTASSIUM 3.5 MMOL/L (3.6-5.0); TOTAL PROTEIN 6.6 GM/DL (6.4-8.2)
[2022-12-11 12:25] VITALS: BP 129/86
== END 2022-12-18 | disposition home or self-care (01) ==
LOC: SDC 10:35
PROVIDERS: ATTEND Internal Medicine
DX: K51.90 Ulcerative colitis, unspecified, without complications (principal)
CPT/HCPCS: 36415; 80053; 85025; 86141; 96365; J3380

== ENCOUNTER 2023-02-05 09:52 | Outpatient (RCR) | payer BC ==
[2023-02-05 10:00] VITALS: BP 122/73
[2023-02-05] MEDS ORDERED: methylPREDNISolone 125 MG (Solu-MEDROL) VIAL IV SCH (10:30)
[2023-02-05] MEDS ORDERED: VEDOLIZUMAB 300 MG/NS 250 ML IVPB IV SCH ×2 (10:30)
[2023-02-05] MEDS ORDERED: EPINEPHrine INJECTION 1 MG/ML AMP SC PRN (10:30)
[2023-02-05] MEDS ORDERED: diphenhydrAMINE 50 MG/ML INJ (BENADRYL) IV PRN (10:30)
[2023-02-05] MEDS ORDERED: ACETAMINOPHEN 500 MG TAB (TYLENOL) PO PRN (10:30)
[2023-02-05] MEDS ORDERED: CARI1.5C PO (11:34)
[2023-02-05] MEDS ORDERED: SEMA0.258 SQ (11:34)
== END 2023-02-17 | disposition home or self-care (01) ==
LOC: SDC 09:52
PROVIDERS: ATTEND Internal Medicine
DX: K51.90 Ulcerative colitis, unspecified, without complications (principal); Z79.899 Other long term (current) drug therapy
CPT/HCPCS: 36415; 86141; 96365; J3380

== ENCOUNTER → 2023-02-08 | Outpatient (CLI) | payer BC ==
[~2023-02-08] MED LIST changes: +CARI1.5C PO; +SEMA0.258 SQ
== END ==
LOC: LAB 09:21
PROVIDERS: ATTEND Internal Medicine
DX: K51.00 Ulcerative (chronic) pancolitis without complications (principal)
CPT/HCPCS: 36415; 83993; 87324; 87449

== ENCOUNTER 2023-04-02 08:53 | Outpatient (RCR) | payer BC ==
[~2023-04-02] VITALS: Ht 167 cm; Wt 102.0 kg
[2023-04-02] MEDS ORDERED: VEDOLIZUMAB 300 MG/NS 250 ML IVPB IV SCH ×2 (09:15)
[2023-04-02] MEDS ORDERED: methylPREDNISolone 125 MG (Solu-MEDROL) VIAL IV PRN (09:15)
[2023-04-02 09:26] VITALS: BP 144/96
[2023-04-02] MEDS ORDERED: ACETAMINOPHEN 500 MG TABLET PO PRN (09:30)
[2023-04-02] MEDS ORDERED: diphenhydrAMINE INJ 50 MG/ML VIAL IV PRN (09:30)
[2023-04-02] MEDS ORDERED: EPINEPHrine INJECTION 1 MG/ML AMP SC PRN (09:30)
[2023-04-02 09:47] LABS: BASOPHILS # (AUTO) 0.1 10^3/uL (0.0-0.1); BASOPHILS % (AUTO) 1 % (0-10); EOSINOPHILS # (AUTO) 0.1 10^3/uL (0.0-0.3); EOSINOPHILS % (AUTO) 2 % (0-10); HEMATOCRIT 40 % (35-52); HEMOGLOBIN 13.8 g/dL (11.5-16.0); LYMPHOCYTES # (AUTO) 1.8 10^3/uL (1.0-4.0); LYMPHOCYTES % (AUTO) 31 % (12-44); MEAN CORPUSCULAR HEMOGLOBIN 30 pg (25-34); MEAN CORPUSCULAR HGB CONC 34 g/dL (32-36); MEAN CORPUSCULAR VOLUME 88 fL (80-99); MEAN PLATELET VOLUME 9.1 fL (9.0-12.2); MONOCYTES # (AUTO) 0.7 10^3/uL (0.0-1.0); MONOCYTES % (AUTO) 11 % (0-12); NEUTROPHILS # (AUTO) 3.3 10^3/uL (1.8-7.8); NEUTROPHILS % (AUTO) 55 % (42-75); PLATELET COUNT 278 10^3/uL (130-400)
[2023-04-02 10:03] LABS: ALBUMIN 4.1 GM/DL (3.2-4.5); BILIRUBIN,TOTAL 0.4 MG/DL (0.1-1.0); CALCIUM 9.3 MG/DL (8.5-10.1); CREATININE SERUM 0.73 MG/DL (0.60-1.30); POTASSIUM 4.2 MMOL/L (3.6-5.0)
== END 2023-04-19 | disposition home or self-care (01) ==
LOC: SDC 08:53
PROVIDERS: ATTEND Internal Medicine
DX: K51.90 Ulcerative colitis, unspecified, without complications (principal)
CPT/HCPCS: 36415; 80053; 85025; 86141; 96365; J3380

== ENCOUNTER 2023-05-27 06:35 | Emergency (ER) | payer BC ==
[~2023-05-27] VITALS: Ht 167.7 cm; Wt 104.3 kg
[2023-05-27] MEDS ORDERED: NS IV 1000 ML 1,000 ML IV ONE (07:00)
--- NOTE | 2023-05-27 07:07 | ED General ---
General Chief Complaint: Overdose Stated Complaint: ACCIDENTAL INGESTION OF MEDS/HEART RACING Nursing Triage Note: PT AMB TO [facility] 5 WITH CC OF OVERDOSE. PT STATES THAT SHE TOOK APPOX. 27 PILLS OF METHYLPHENIDATE AT 0600. PT STATES THAT SHE ACCIDENTLY TOOK THE WHOLE BOTTLE OF PILLS THINKING IT WAS MORNING MEDS. Source of Information: Patient Exam Limitations: No Limitations History of Present Illness Date Seen by Provider: May 27, 2023 Time Seen by Provider: 06:40 Initial Comments Here with report of accidental overdose of her methylphenidate. She apparently had poured the pills into her bottle cap to count them. She normally just takes the pills out of her And she sets them up that way. She confused which In accidentally took 27 of her methylphenidate pills of 10 mg. This occurred right around 615. She tried to vomit afterwards when she realized what she had done and was unable to. She started getting shaky and nervous and came to the emergency department. States that she does feel palpitations but denies chest pain. States this was accidental and she did not try to do this on purpose and has no thoughts of suicidal ideations. She states that she was in a hurry because she was trying to get her dogs walked and get her grandkids picked up and to school and then get to school. 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 She is very anxious appearing currently. Denies chest pain or breathing problems. Denies nausea, vomiting or diarrhea or other symptoms. Timing/Duration: 1/2 Hour Associated Systoms: No Chest Pain, No Fever/Chills Allergies and Home Medications Allergies Coded Allergies: No Known Drug Allergies (Unverified , 08/21/21) Patient Home Medication List Home Medication List Reviewed: Yes Cariprazine Hydrochloride (Vraylar) 1.5 Mg Capsule, 1.5 MG PO DAILY, (Reported) Entered as Reported by: ESCOBAR LEOS on 02/05/23 1134 Cholecalciferol (Vitamin D3) (Vitamin D3) 25 Mcg Tablet, 25 MCG PO BID, (Reported) Entered as Reported by: JOSEMANUEL CASIANO on 08/18/21 1420 Docusate Sodium (Colace) 100 Mg Capsule, 100 MG PO BID, (Reported) Entered as Reported by: JOSEMANUEL CASIANO on 08/18/21 1420 Dulaglutide (Trulicity) 1.5 Mg/0.5 Ml Pen.injctr, 1.5 MG SQ WEEK, (Reported) Entered as Reported by: JOSEMANUEL CASIANO on 08/18/21 142 Ferrous Sulfate (Iron) 325 Mg Tablet, 325 MG PO DAILY, (Reported) Entered as Reported by: JOSEMANUEL CASIANO on 08/18/21 142 Fluoxetine HCl (Fluoxetine HCl) 40 Mg Capsule, 40 MG PO DAILY, (Reported) Entered as Reported by: JOSEMANUEL CASIANO on 08/18/21 142 Hydrocodone Bit/Acetaminophen (HYDROcodone/APAP 5 MG/325 MG TAB) 1 Tab Tab, 1 TAB PO Q8H PRN for PAIN-MODERATE (5-7) Prescribed by: MEHREEN NICHOLS on 08/21/21 142 Losartan/Hydrochlorothiazide (Losartan-Hctz 50-12.5 mg Tab) 1 Each Tablet, 1 EACH PO DAILY, (Reported) Entered as Reported by: JOSEMANUEL CASIANO on 08/18/21 142 Metformin HCl (Metformin HCl ER) 500 Mg Tab.er.24, 1,000 MG PO DAILY, (Reported) Entered as Reported by: JOSEMANUEL CASIANO on 08/18/21 142 Methylphenidate HCl (Ritalin) 10 Mg Tablet, 10 MG PO BID, (Reported) Entered as Reported by: TAY HEATH on 02/08/19 1015 [place] 3 Polyunsat Fatty Acids (Fish Oil 1,000 mg Capsule) 1,000 Mg Cap, 1,000 MG PO DAILY, (Reported) Entered as Reported by: JOSEMANUEL CASIANO on 08/18/21 142 Semaglutide (Ozempic) 0.25 Mg/0.4 Ml Pen.injctr, 0.25 MG SQ DAILY, (Reported) Entered as Reported by: ESCOBAR LEOS on 02/05/23 1134 Tramadol HCl (Tramadol HCl) 50 Mg Tablet, 50 MG PO Q6H PRN for PAIN-MODERATE, (Reported) Entered as Reported by: JOSEMANUEL CASIANO on 02/07/19 1327 Vedolizumab (Entyvio) 300 Mg Vial, 300 MG IV every 8 weeks, (Reported) Entered as Reported by: JOSEMANUEL CASIANO on 08/18/21 1420 Review of Systems Review of Systems Constitutional: see HPI; No chills, No fever EENTM: no symptoms reported Respiratory: No cough, No short of breath Cardiovascular: No chest pain; palpitations Gastrointestinal: No nausea, No vomiting Genitourinary: No dysuria Musculoskeletal: No back pain, No muscle pain Psychiatric/Neurological: Anxiety Past [id number]-Rcpuhn-Vcfbei Hx Patient Social History Tobacco Use?: No Smoking Status: Former Smoker Substance use?: No Alcohol Use?: Yes Alcohol Frequency: Rarely Immunizations Up To Date First/Initial COVID19 Vaccinat: yes Second COVID19 Vaccination Stevan: yes Third COVID19 Vaccination Date: yes Seasonal Allergies Seasonal Allergies: Yes Past Medical History Surgeries: Yes (R shoulder, foot sx, neck fusion, breast lumpectomy, bilat knee scope, Rtkr) Breast, Hysterectomy, Orthopedic, Tubal Ligation Respiratory: Yes Asthma, Sleep Apnea Currently Using CPAP: Yes Currently Using BIPAP: No Cardiac: Yes High Cholesterol, Hypertension Neurological: Yes (narcolepsy) Reproductive Disorders: No 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 History: Hysterectomy, Tubal Ligation Sexually Transmitted Disease: No HIV/AIDS: No Genitourinary: No Bladder Infection Gastrointestinal: Yes ( Hep C-treated, ulcerative colitis) Diverticulosis, Hepatitis Musculoskeletal: Yes (CHRONIC NECK PAIN ) Arthritis, Fibromyalgia, Chronic Back Pain Endocrine: Yes Diabetes, Non-Insulin dep HEENT: Yes (glasses, permanent bridge) Cancer: No Psychosocial: No Integumentary: No Blood Disorders: Yes (hx anemia) Adverse Reaction/Blood Tranf: No Family Medical History Reviewed Nursing Family Hx Alzheimer's disease 19 FATHER Arthritis 19 MOTHER G8 BROTHER G8 SISTER Diabetes mellitus 19 MOTHER G8 SISTER No Pertinent Family Hx Physical Exam Vital Signs Vital Signs - First Documented 05/27/23 06:41 Temp 36.9 Pulse 138 B/P (MAP) 165/101 (122) Pulse Ox 96 O2 Delivery Room Air Capillary Refill : Height, Weight, BMI Height: 5'5.50" Weight: 224lbs. 0.0oz. [id number]; 37.00 BMI Method:Stated General Appearance: No Apparent Distress, WD/WN HEENT: PERRL/EOMI, Pharynx Normal Neck: Non Tender, Supple Respiratory: Lungs Clear, Normal Breath Sounds Cardiovascular: No Murmur, Tachycardia Gastrointestinal: Non Tender, Soft Back: Normal Inspection, No CVA Tenderness, No Vertebral Tenderness Extremity: Normal Range of Motion, Non Tender Neurologic/Psychiatric: Alert, Oriented x3 Skin: Normal Color, Warm/Dry Progress/Results/Core Measures Suspected Sepsis SIRS Temperature: Pulse: 138 Respiratory Rate: Laboratory Tests 05/27/23 07:15: White Blood Count 6.3 Blood Pressure 165 /101 Mean: 122 Laboratory Tests 05/27/23 07:15: Creatinine 0.76, Platelet Count 317, Total Bilirubin 0.5 Results/Orders Lab Results Laboratory Tests Test 05/27/23 07:15 05/27/23 08:30 Range/Units White Blood Count 6.3 4.3-11.0 10^3/uL Red Blood Count 4.74 3.80-5.11 10^6/uL Hemoglobin 14.1 11.5-16.0 g/dL Hematocrit 42 35-52 % Mean Corpuscular Volume 89 80-99 fL Mean Corpuscular Hemoglobin 30 25-34 pg Mean Corpuscular Hemoglobin Concent 34 32-36 g/dL Red Cell Distribution Width 12.7 10.0-14.5 % Platelet Count 317 130-400 10^3/uL Mean Platelet Volume 8.7 L 9.0-12.2 fL Immature Granulocyte % (Auto) 1 % Neutrophils (%) (Auto) 47 42-75 % Lymphocytes (%) (Auto) 36 12-44 % Monocytes (%) (Auto) 10 0-12 % Eosinophils (%) (Auto) 5 0-10 % Basophils (%) (Auto) 1 0-10 % Neutrophils # (Auto) 3.0 1.8-7.8 10^3/uL Lymphocytes # (Auto) 2.3 1.0-4.0 10^3/uL Monocytes # (Auto) 0.6 0.0-1.0 10^3/uL Eosinophils # (Auto) 0.3 0.0-0.3 10^3/uL Basophils # (Auto) 0.1 0.0-0.1 10^3/uL Immature Granulocyte # (Auto) 0.0 0.0-0.1 10^3/uL Sodium Level 138 135-145 MMOL/L Potassium Level 3.9 3.6-5.0 MMOL/L Chloride Level 102 98-107 MMOL/L Carbon Dioxide Level 24 21-32 MMOL/L Anion Gap 12 5-14 MMOL/L Blood Urea Nitrogen 13 7-18 MG/DL Creatinine 0.76 0.60-1.30 MG/DL Estimat Glomerular Filtration Rate 92 BUN/Creatinine Ratio 17 Glucose Level 159 H 70-105 MG/DL Calcium Level 9.2 8.5-10.1 MG/DL Corrected Calcium 9.0 8.5-10.1 MG/DL Magnesium Level 1.9 1.6-2.4 MG/DL Total Bilirubin 0.5 0.1-1.0 MG/DL Aspartate Amino Transf (AST/SGOT) 20 5-34 U/L Alanine Aminotransferase (ALT/SGPT) 22 0-55 U/L Alkaline Phosphatase 68 40-136 U/L Total Protein 7.2 6.4-8.2 GM/DL Albumin 4.2 3.2-4.5 GM/DL Urine Color YELLOW Urine Clarity CLEAR Urine pH 7.5 5-9 Urine Specific [place] 1.015 L 1.016-1.022 Urine Protein NEGATIVE NEGATIVE Urine Glucose (UA) NEGATIVE NEGATIVE Urine Ketones NEGATIVE NEGATIVE Urine Nitrite NEGATIVE NEGATIVE Urine Bilirubin NEGATIVE NEGATIVE Urine Urobilinogen 0.2 < = 1.0 MG/DL Urine Leukocyte Esterase NEGATIVE NEGATIVE Urine RBC (Auto) NEGATIVE NEGATIVE Urine RBC NONE /HPF Urine WBC 0-2 /HPF Urine Squamous Epithelial Cells 2-5 /HPF Urine Crystals NONE /LPF Urine Bacteria NEGATIVE /HPF Urine Casts NONE /LPF Urine Mucus NEGATIVE /LPF Urine Culture Indicated NO Urine Opiates Screen NEGATIVE NEGATIVE Urine Oxycodone Screen NEGATIVE NEGATIVE Urine Methadone Screen NEGATIVE NEGATIVE Urine Propoxyphene Screen NEGATIVE NEGATIVE Urine Barbiturates Screen NEGATIVE NEGATIVE Ur Tricyclic Antidepressants Screen NEGATIVE NEGATIVE Urine Phencyclidine Screen NEGATIVE NEGATIVE Urine Amphetamines Screen NEGATIVE NEGATIVE Urine Methamphetamines Screen NEGATIVE NEGATIVE Urine Benzodiazepines Screen NEGATIVE NEGATIVE Urine Cocaine Screen NEGATIVE NEGATIVE Urine Cannabinoids Screen NEGATIVE NEGATIVE My Orders Orders - HEATHER DOLAN MD Cbc With Automated Diff (05/27/23 06:47) Comprehensive Metabolic Panel (05/27/23 06:47) Drug Screen Stat (Urine) (05/27/23 06:47) Magnesium (05/27/23 06:47) Ua Culture If Indicated (05/27/23 06:47) Ed Iv/Invasive Line Start (05/27/23 06:47) Ekg Tracing (05/27/23 06:47) Monitor-Rhythm Ecg Trace Only (05/27/23 06:47) Ed Iv/Invasive Line Start (05/27/23 06:47) Ns Iv 1000 Ml (Ns Iv 1000 Ml) (05/27/23 07:00) Lorazepam Injection (Lorazepam Injection (05/27/23 07:00) General/Regular (05/27/23 Breakfast) Medications Given in ED Current Medications Medications Dose Ordered Sig/Roxanne Route Start Time Stop Time Status Last Admin Dose Admin Lorazepam 1 mg ONCE ONCE IVP 05/27/23 07:00 05/27/23 07:02 DC 05/27/23 07:15 1 MG Sodium Chloride 1,000 ml @ 0 mls/hr Q0M ONCE IV 05/27/23 07:00 05/27/23 07:01 DC 05/27/23 07:15 1,000 MLS/HR Vital Signs/I&O 05/27/23 05/27/23 06:41 09:13 Temp 36.9 37.3 Pulse 138 B/P (MAP) 165/101 (122) Pulse Ox 96 O2 Delivery Room Air Capillary Refill : Blood Pressure Mean: 122 Progress Note : Progress Note Evaluated. IV, labs including CBC, CMP get EKG. Normal saline 1 L bolus ordered. We will contact poison control. Monitor patient. Differential diagnosis includes medication effect, dehydration, electrolyte abnormality, cardiac arrhythmia 0705: I have ordered Ativan 1 mg IV for the anxiousness. Poison control recommends benzodiazepines and IV fluids with 6-hour monitoring and benzos and IV fluids as needed. They did recommend monitoring for hyperthermia which would be the greatest adverse effect. Monitor patient. 0805: Blood pressure 121/73 and heart rate of 108. I did evaluate for bed space here. We are currently short on ICU beds and it would be several hours before we could get room. Given that she has responded well with the benzo and she seems to be doing okay otherwise, we will continue 6-hour monitoring. Here in the emergency department and see how she does. As long as she remains stable otherwise, we may be able to complete monitoring. In the department and then discharged home. This was discussed with the patient.. Monitor patient. CBC and CMP both reviewed and are both grossly normal. 1047: Overall doing well all. Heart rate has improved to 105 and blood pressure is 147/83. We will continue 1 more hour of monitoring and if she remains stable through that then we will discharge her home. I will send a copy of the chart to Dr. Pugh's office to verify the accidental overdose today. Monitor patient. 3 0: Overall patient doing much better. Heart rate has been low 100s and she would really like to go home. She is in the 4 to 6- hour range for poison control is okay with her going home. Discharged home with return precautions. Patient verbalized understanding of instructions and agreement with plan. ECG Initial ECG Impression Date: May 27, 2023 Initial ECG Impression Time: 06:51 Initial ECG Rate: 131 Initial ECG Rhythm: S.Tach Comment Sinus tachycardia with normal axis. No evidence of ST elevation SD. Interpreted by me. Departure Impression Primary Impression: Drug overdose Qualified Codes: T50.901A - Poisoning by unspecified drugs, medicaments and biological substances, accidental (unintentional), initial encounter Disposition: 01 HOME, SELF-CARE Condition: Improved Departure-Patient Inst. Decision time for Depature: 11:31 Referrals: [facility] (PCP) Primary Care Physician WILBERTO WYATT APRN (Family) Primary Care Physician Patient Instructions: ALCOHOL AND SUBSTANCE ABUSE, Accidental Overdose (DC) Add. Discharge Instructions: All discharge instructions reviewed with patient and/or family. Voiced u nderstanding. Follow back up with Dr. Pugh's office for refill of your prescription. You should rest today. Do not go back to work. A work note has been provided. Return for palpitations, chest pain, weakness, breathing problems, fever or other concerns as needed. Drink plenty of fluids and get plenty of rest today. Work/School Note: Work Release Form Date Seen in the Emergency Department: May 27, 2023 Return to Work: May 28, 2023 Restrictions: No Restrictions Copy Copies To 1: MARTINEZ PUGH MD, TIMOTHY D MD May 27, 2023 07:07
[2023-05-27 07:22] LABS: BASOPHILS # (AUTO) 0.1 10^3/uL (0.0-0.1); BASOPHILS % (AUTO) 1 % (0-10); EOSINOPHILS # (AUTO) 0.3 10^3/uL (0.0-0.3); EOSINOPHILS % (AUTO) 5 % (0-10); HEMATOCRIT 42 % (35-52); HEMOGLOBIN 14.1 g/dL (11.5-16.0); LYMPHOCYTES # (AUTO) 2.3 10^3/uL (1.0-4.0); LYMPHOCYTES % (AUTO) 36 % (12-44); MEAN CORPUSCULAR HEMOGLOBIN 30 pg (25-34); MEAN CORPUSCULAR HGB CONC 34 g/dL (32-36); MEAN CORPUSCULAR VOLUME 89 fL (80-99); MEAN PLATELET VOLUME 8.7 fL (9.0-12.2); MONOCYTES # (AUTO) 0.6 10^3/uL (0.0-1.0); MONOCYTES % (AUTO) 10 % (0-12); NEUTROPHILS % (AUTO) 47 % (42-75); PLATELET COUNT 317 10^3/uL (130-400); WHITE BLOOD COUNT 6.3 10^3/uL (4.3-11.0)
[2023-05-27 07:38] LABS: ALBUMIN 4.2 GM/DL (3.2-4.5); POTASSIUM 3.9 MMOL/L (3.6-5.0)
[2023-05-27 07:39] LABS: CALCIUM 9.2 MG/DL (8.5-10.1)
[2023-05-27 07:41] LABS: TOTAL PROTEIN 7.2 GM/DL (6.4-8.2)
[2023-05-27 07:43] LABS: BILIRUBIN,TOTAL 0.5 MG/DL (0.1-1.0)
[2023-05-27 07:44] LABS: CREATININE SERUM 0.76 MG/DL (0.60-1.30)
[2023-05-27 07:47] LABS: MAGNESIUM 1.9 MG/DL (1.6-2.4)
[2023-05-27 08:48] LABS: CLARITY,URINE CLEAR; COLOR,URINE YELLOW; GLUCOSE, URINE (UA) NEGATIVE (NEGATIVE); KETONES,URINE NEGATIVE (NEGATIVE); NITRITE,URINE NEGATIVE (NEGATIVE); PH,URINE 7.5 (5-9); PROTEIN,URINE NEGATIVE (NEGATIVE)
[2023-05-27 08:49] LABS: BACTERIA,URINE NEGATIVE /HPF; BILIRUBIN,URINE NEGATIVE (NEGATIVE); LEUKOCYTE ESTERASE ,URINE NEGATIVE (NEGATIVE); WBC,URINE 0-2 /HPF
[2023-05-27 08:56] LABS: AMPHETAMINE SCREEN, URINE NEGATIVE (NEGATIVE); BARBITURATE SCREEN URINE NEGATIVE (NEGATIVE); BENZODIAZEPINES SCREEN URINE NEGATIVE (NEGATIVE); CANNABINOID SCREEN, URINE NEGATIVE (NEGATIVE); COCAINE SCREEN URINE NEGATIVE (NEGATIVE); METHADONE STAT NEGATIVE (NEGATIVE); OPIATE SCREEN URINE NEGATIVE (NEGATIVE); OXYCODONE STAT NEGATIVE (NEGATIVE); PROPOXYPHENE STAT NEGATIVE (NEGATIVE); TRICYCLIC ANTIDEPRESSANTS SCRE NEGATIVE (NEGATIVE)
[2023-05-27 11:45] VITALS: BP 128/81
== END 2023-05-27 11:45 | disposition home or self-care (01) ==
LOC: EDUNIT# 06:35 → ER 06:36
DX: T43.631A Poisoning by methylphenidate, accidental (unintentional), initial encounter (principal); G47.30 Sleep apnea, unspecified; F41.9 Anxiety disorder, unspecified; Z87.891 Personal history of nicotine dependence; Z99.89 Dependence on other enabling machines and devices
CPT/HCPCS: 36415; 80053; 80306; 81000; 83735; 85025; 93005; 93041

== ENCOUNTER 2023-07-27 12:05 | Outpatient (RCR) | payer BC ==
[~2023-07-27] VITALS: Wt 104.3 kg
[~2023-07-27 12:05] MED LIST changes: -ESTR0.5T PO; +ESTR0.5T2 PO
[2023-07-27] MEDS ORDERED: VEDOLIZUMAB 300 MG/NS 250 ML IVPB IV SCH ×2 (12:17)
[2023-07-27] MEDS ORDERED: diphenhydrAMINE INJ 50 MG/ML VIAL IV PRN (12:18)
[2023-07-27] MEDS ORDERED: methylPREDNISolone INJ 125 MG VIAL IV PRN (12:18)
[2023-07-27] MEDS ORDERED: EPINEPHrine INJECTION 1 MG/ML AMP SC PRN (12:18)
[2023-07-27] MEDS ORDERED: ACETAMINOPHEN 500 MG TABLET PO PRN (12:18)
[2023-07-27 13:01] VITALS: BP 132/72
== END 2023-08-19 | disposition home or self-care (01) ==
LOC: SDC 12:05
PROVIDERS: ATTEND Internal Medicine
DX: K51.90 Ulcerative colitis, unspecified, without complications (principal)
CPT/HCPCS: 96365; J3380